=== PATIENT | female | born 1965 | race African-American/Black ===

== ENCOUNTER 2024-06-13 14:33 | Emergency (ER) | payer BC, MEDICARE, SELFPAY ==
--- NOTE | ~2024-06-13 | CT_ITS ---
EXAMINATION: CT chest abdomen pelvis w con DATE: 06/13/2024 20:38 INDICATION: wounds b/l axilla and inguinal, muscle exposed . TECHNIQUE: Computed tomography (CT) of the chest, abdomen, and pelvis was performed with 100 mL Omnip aque-350 intravenous contrast. Automated exposure control and iterative reconstruction technique were employed. The dose-length product was 615.12 mGy-cm. COMPARISON: None FINDINGS: CHEST: Thoracic aorta: No significant dilation. No dissection. Lung parenchyma and airways: Lungs and airways are clear. Thoracic inlet, axillae and chest wall: No thyroid mass. Prominent but not pathologically enlarged bi lateral axillary nodes. Axillary skin defects with dermal thickening and subcutaneous stranding bilat erally. Mediastinum: No mass or lymphadenopathy. Heart and pericardium: Normal heart size. No pericardial effusion. Coronary artery calcifications: . Pleura: No effusion or mass. Thoracic bones: No acute osseous finding in the chest. ABDOMEN/PELVIS: Liver: Normal. Biliary/Gallbladder: Gallbladder is normal. No bile duct dilation. Pancreas: No mass or duct dilation. Spleen: Normal. Adrenals:No mass. Kidneys: No suspicious mass, obstructing stone, or hydronephrosis. GI tract: Mild distal esophageal and gastric wall edema. No small or large bowel dilation. Normal danii endix. Mesentery/Peritoneum: No ascites, mass, or free air. Retroperitoneum: No mass Pelvis: Pelvic organs are within normal limits Soft Tissues: Midline skin defect over the inferior anterior abdominal wall with adjacent subcutaneou s stranding and a 3.9 x 0.4 cm rim enhancing fluid collection Small skin defect over the bilateral in guinal canals with subcutaneous gas and stranding. Small foci of subcutaneous gas overlying the media l right buttock and gluteal cleft. Dermal thickening and subcutaneous stranding along the left medial buttock and gluteal cleft. Bilateral inguinal lymphadenopathy. Abdominopelvic bones: No acute osseous finding in the abdomen/pelvis. Grade 1/2 anterolisthesis at L 4-5. Rudimentary disc at L5-S1. IMPRESSION: Mild esophagitis/gastritis. Multiple skin ulcerations or surgical/other lesions in the bilateral axilla, evaluation limited by th e necessity to scan with arm down positioning. Skin defect over the inferior midline abdominal wall with subcutaneous stranding and a 3.9 x 0.4 cm r im-enhancing subcutaneous fluid collection. This may represent resolving surgical change/seroma or ab scess. Multiple skin ulcerations or surgical/other lesions in the bilateral inguinal canals and along the bi lateral medial gluteal soft tissues. No drainable abscesses detected in these locations. Bilateral inguinal lymphadenopathy. Reviewed, dictated and finalized at location [facility] IMPRESSION: Mild esophagitis/gastritis. Multiple skin ulcerations or surgical/other lesions in the bilateral axilla, ev aluation limited by the necessity to scan with arm down positioning. Skin defect over the inferior midline abdominal wall with subcutaneous strandin g and a 3.9 x 0.4 cm rim-enhancing subcutaneous fluid collection. This may repr esent resolving surgical change/seroma or abscess. Multiple skin ulcerations or surgical/other lesions in the bilateral inguinal c anals and along the bilateral medial gluteal soft tissues. No drainable abscess es detected in these locations. Bilateral inguinal lymphadenopathy.
[2024-06-13 14:35] VITALS: BP 135/81; PULSE 112; RESP 20; TEMP 36.6; O2SAT 100
[2024-06-13 16:42] VITALS: BP 92/50; PULSE 81; RESP 18; TEMP 36.5; O2SAT 100
--- NOTE | 2024-06-13 17:43 | ED.GENADULT ---
HPI - General Adult General Chief complaint: Skin/Abscess/Foreign Body <Mark Miles PA-C - Last Filed: 06/13/24 17:44> Stated complaint: multiple boils <Mark Miles PA-C - Last Filed: 06/13/24 17:44> Time Seen by Provider: 06/13/24 17:43 <Mark Miles PA-C - Last Filed: 06/13/24 17:44> Focused HPI: This is a 58-year-old female who presents to the ED for chief complaint of a bilateral axilla and groin pain. She had surgical procedures for hidradenitis a pretty with surgeon in [place]. States that she has had pain ever since surgery and tramadol has really not controlled her pain. Reports that she is supposed to follow-up with retail customer service specialist in 10 days but the pain is too great. She has been using her wound dressings as instructed. Denies fevers, chills, nausea, vomiting. GENERAL: Well-appearing, well-nourished, and in no acute distress. HEAD: Normocephalic, atraumatic. CHEST: Clear to auscultation. No respiratory distress. HEART: Regular rate and rhythm. NEURO: Alert and oriented x3. Patient screened in triage and initial orders placed. Additional care and disposition to be based upon diagnostic testing and treatment. <Mark Miles PA-C - Last Filed: 06/13/24 17:44> Focused HPI: This is a 58-year-old female who presents to the ED for chief complaint of a bilateral axilla and groin pain. She had surgical procedures for hidradenitis with surgeon in [place]. States that she has had pain ever since surgery and tramadol has really not controlled her pain. Reports that she is supposed to follow-up with retail customer service specialist in 10 days but the pain is too great. She has been using her wound dressings as instructed. Denies fevers, chills, nausea, vomiting. GENERAL: Well-appearing, well-nourished, and in no acute distress. HEAD: Normocephalic, atraumatic. CHEST: Clear to auscultation. No respiratory distress. HEART: Regular rate and rhythm. NEURO: Alert and oriented x3. Patient screened in triage and initial orders placed. Additional care and disposition to be based upon diagnostic testing and treatment. <Crescencio Mariee MD - Last Filed: 06/14/24 23:16> History of Present Illness HPI narrative: Agree with the HPI as described above. <Crescencio Mariee MD - Last Filed: 06/14/24 23:16> Related Data Allergies/adverse reactions: Allergies Allergy/AdvReac Type Severity Reaction Status Date / Time No Known Allergies Allergy Mild Unverified 12/17/11 15:57 <Mark Miles PA-C - Last Filed: 06/13/24 17:44> Review of Systems Review of Systems: as reviewed above in HPI <Crescencio Mariee MD - Last Filed: 06/14/24 23:16> [facility] Family History Family History: Family History Grandparent Family history of malignant neoplasm of breast <Mark Miles PA-C - Last Filed: 06/13/24 17:44> Social History Social History: Social History Alcohol intake: current <Mark Miles PA-C - Last Filed: 06/13/24 17:44> Exam Narrative: GENERAL: Uncomfortable appearing, not any acute distress, awake alert answering questions appropriately. HEAD: [Normocephalic, atraumatic.] EYES: [PERRLA and EOMI.] ENT: Nares clear, no rhinorrhea or epistaxis. Mucous membranes moist. NECK: Supple. CHEST: [Clear to auscultation. No respiratory distress.] HEART: [Regular rate and rhythm]. No murmur heard. [Normal peripheral pulses.] ABDOMEN: [Soft, nondistended], [nontender], [No rigidity or guarding] EXTREMITIES: Normal range of motion. [No edema.] SKIN: There are extensive wounds throughout the bilateral axilla and bilateral inguinal canals and a suprapubic one. Appears to be from the previous incision and drainage but the area appears to not have healed whatsoever and there is exposed musculature and purulent drainage through both axillary regions and in the inguinal canal creases. There is a bleeding mucosal area in the suprapubic region that also has some mucopurulent discharge as well. these areas are exquisitely tender to palpation but no crepitus or fluctuance identified. No overlying cellulitic skin changes or redness. NEURO: [No focal deficits]. Alert and oriented [x3.] PSYCH: [Normal mood and affect.] <Crescencio Mariee MD - Last Filed: 06/14/24 23:16> Course Vital Signs Vital signs: Vital Signs Temperature 36.6 C 06/13/24 14:35 Pulse Rate 112 H 06/13/24 14:35 Respiratory Rate 20 06/13/24 14:35 Blood Pressure 135/81 06/13/24 14:35 Pulse Oximetry 100 06/13/24 14:35 Oxygen Delivery Room Air 06/13/24 14:35 Temperature 36.5 C 06/13/24 16:42 Pulse Rate 87 06/13/24 21:00 Respiratory Rate 18 06/13/24 21:00 Blood Pressure 133/72 06/13/24 21:00 Pulse Oximetry 98 06/13/24 21:00 Oxygen Delivery Room Air 06/13/24 14:35 <Mark Miles PA-C - Last Filed: 06/13/24 17:44> Vital Signs Temperature 36.6 C 06/13/24 14:35 Pulse Rate 112 H 06/13/24 14:35 Respiratory Rate 20 06/13/24 14:35 Blood Pressure 135/81 06/13/24 14:35 Pulse Oximetry 100 06/13/24 14:35 Oxygen Delivery Room Air 06/13/24 14:35 Temperature 36.5 C 06/13/24 16:42 Pulse Rate 87 06/13/24 21:00 Respiratory Rate 18 06/13/24 21:00 Blood Pressure 133/72 06/13/24 21:00 Pulse Oximetry 98 06/13/24 21:00 Oxygen Delivery Room Air 06/13/24 14:35 <Crescencio Mariee MD - Last Filed: 06/14/24 23:16> Vital Signs Temperature 36.6 C 06/13/24 14:35 Pulse Rate 112 H 06/13/24 14:35 Respiratory Rate 20 06/13/24 14:35 Blood Pressure 135/81 06/13/24 14:35 Pulse Oximetry 100 06/13/24 14:35 Oxygen Delivery Room Air 06/13/24 14:35 Temperature 36.5 C 06/13/24 16:42 Pulse Rate 87 06/13/24 21:00 Respiratory Rate 18 06/13/24 21:00 Blood Pressure 133/72 06/13/24 21:00 Pulse Oximetry 98 06/13/24 21:00 Oxygen Delivery Room Air 06/13/24 14:35 <Tanja Wright PA-C - Last Filed: 06/14/24 00:35> Medical Decision Making MDM Narrative Medical decision making narrative: 58-year-old female with history of hidradenitis who recently had multiple incision and drainage procedures done at [facility] in April of this year. She had a total 14 incisions according to herself and was supposed to follow-up with specialist but that appointment is not till the of this month. Patient has been having increased pain and now mucopurulent drainage out of her axillary and inguinal incision sites. Patient rates her pain 10/10 is very tearful. On examination the wounds are nonhealing, you can see the underlying exposed musculature through her axillary wounds without any overlying skin redness, warmth erythema or crepitus. The inguinal rules also have mucopurulent discharge and are in the creases bilaterally as well as 1 suprapubic wound. She has no history of inflammatory bowel or IBS but the suprapubic wound also potentially could be a fistulous tract. the areas are tender to palpation but no palpable abscess formation in this area. she is afebrile but slightly tachycardic with a pulse 112. No fever or boarded chills. Hemodynamically she has a blood pressure 135/81, saturating well on room air. Given the extensive wounds considerations are for nonhealing infected incision sites, less likely underlying abscess formation or deep space infections however given the exposed musculature in the axillary region I am concerned that we need to obtain advanced imaging such as a CT scan of the chest abdomen pelvis to assess for the areas of involvement. A septic workup was ordered this time and she was given a fluid bolus of 1L, CBC, CMP, lactic acid, inflammatory marker panel and empiric antibiotics were ordered. She was started on vancomycin and Zosyn. workup reveals a significant leukocytosis of 19.2, hemoglobin of 7.7 with no baseline are EMR. Normal platelets. LFTs and renal function panel within normal limits. Electrolytes within normal limits. C-reactive protein elevated 19.8. Lactic acid 1.4. Patient had repeat vital signs and re-evaluations frequently. Improvement in her pulse after fluid bolus. Repeat vitals are stable without any fever, no tachycardia or blood pressure concerns at this time. Patient CT scan was independently reviewed and also interpreted by radiology. She has the appreciable multiple skin ulcerations in defects from her surgical sites in bilateral axilla, bilateral inguinal creases and medial gluteal soft tissues without any drainable abscesses in these locations but a skin defect over the inferior midline abdominal wall consistent with her physical exam finding of a abscess there is a 3.9 cm rim enhancing subcutaneous fluid collection. I discussed the case with our general surgery team Dr. Narvaez and went over the imaging findings and physical exam. His recommendations were to trying contact patient's general surgeon from [facility] for recommendations as he felt she would be better served at her original surgical site rather than admission here. Called and discussed the case with patient's original general surgeon over at [facility] and he is well familiar with the patient and the case. Patient has a history of refractory hidradenitis despite multiple abdominal, inguinal and axillary surgeries, incisions, drainages, antibiotics an immunomodulator therapies. The general surgeon over at their facility states that he has no further interventions that he can offer the patient and try to set her up with [facility] for wound care and evaluation on outpatient basis. Recommendations from him were to transfer her to [facility] for higher level of care as he does not have the capabilities to handle her case at this time. [facility] transfer center was called and I spoke to the hotline informed them of patient's presentation and need for transfer for higher level of care and multidisciplinary management including General surgery, potential plastic surgery, immunology. awaiting call back with recommendations. Spoke to the general surgery team over at [facility] and they have reviewed patient's case, imaging results and ultimately denied the transfer to their facility as they do not have bed availability I do not feel she needs an escalation to Specialty surgical care at this time. at this time attempts will be made to transfer her to another facility that has potential ability and specialist care including Infectious Disease and maybe even Plastic surgery. [facility] was contacted I spoke to them over the phone and relayed the patient's case information to them. Patient was re-evaluated multiple times while here in the emergency department. She had improvement her vital signs with resolution of her tachycardia but was still in pain. She was provided additional analgesia was 0.5 mg of Dilaudid which did improve. Still awaiting call back from [facility] for potential transfer to their facility. At this time it is several hours past my shift still awaiting securing a transfer so patient was endorsed to the mid-level provider to carry on remaining conversations and attempt further transfer. I did relayed the difficulties transferring the patient to the hospitalist here at [facility] and if patient cannot be successfully transferred they will revisit potential admission here to the hospital in conjunction with our general surgeon. <Crescencio Mariee MD - Last Filed: 06/14/24 23:16> 58-year-old female with history of hidradenitis who recently had multiple incision and drainage procedures done at [facility] in April of this year. She had a total 14 incisions according to herself and was supposed to follow-up with specialist but that appointment is not till the of this month. Patient has been having increased pain and now mucopurulent drainage out of her axillary and inguinal incision sites. Patient rates her pain 10/10 is very tearful. On examination the wounds are nonhealing, you can see the underlying exposed musculature through her axillary wounds without any overlying skin redness, warmth erythema or crepitus. The inguinal rules also have mucopurulent discharge and are in the creases bilaterally as well as 1 suprapubic wound. She has no history of inflammatory bowel or IBS but the suprapubic wound also potentially could be a fistulous tract. the areas are tender to palpation but no palpable abscess formation in this area. she is afebrile but slightly tachycardic with a pulse 112. No fever or boarded chills. Hemodynamically she has a blood pressure 135/81, saturating well on room air. Given the extensive wounds considerations are for nonhealing infected incision sites, less likely underlying abscess formation or deep space infections however given the exposed musculature in the axillary region I am concerned that we need to obtain advanced imaging such as a CT scan of the chest abdomen pelvis to assess for the areas of involvement. A septic workup was ordered this time and she was given a fluid bolus of 1L, CBC, CMP, lactic acid, inflammatory marker panel and empiric antibiotics were ordered. She was started on vancomycin and Zosyn. workup reveals a significant leukocytosis of 19.2, hemoglobin of 7.7 with no baseline are EMR. Normal platelets. LFTs and renal function panel within normal limits. Electrolytes within normal limits. C-reactive protein elevated 19.8. Lactic acid 1.4. Patient had repeat vital signs and re-evaluations frequently. Improvement in her pulse after fluid bolus. Repeat vitals are stable without any fever, no tachycardia or blood pressure concerns at this time. Patient CT scan was independently reviewed and also interpreted by radiology. She has the appreciable multiple skin ulcerations in defects from her surgical sites in bilateral axilla, bilateral inguinal creases and medial gluteal soft tissues without any drainable abscesses in these locations but a skin defect over the inferior midline abdominal wall consistent with her physical exam finding of a abscess there is a 3.9 cm rim enhancing subcutaneous fluid collection. I discussed the case with our general surgery team Dr. Narvaez and went over the imaging findings and physical exam. His recommendations were to trying contact patient's general surgeon from [facility] for recommendations as he felt she would be better served at her original surgical site rather than admission here. Called and discussed the case with patient's original general surgeon over at [facility] and he is well familiar with the patient and the case. Patient has a history of refractory hidradenitis despite multiple abdominal, inguinal and axillary surgeries, incisions, drainages, antibiotics an immunomodulator therapies. The general surgeon over at their facility states that he has no further interventions that he can offer the patient and try to set her up with [facility] for wound care and evaluation on outpatient basis. Recommendations from him were to transfer her to [facility] for higher level of care as he does not have the capabilities to handle her case at this time. [facility] transfer center was called and I spoke to the hotline informed them of patient's presentation and need for transfer for higher level of care and multidisciplinary management including General surgery, potential plastic surgery, immunology. awaiting call back with recommendations. Spoke to the general surgery team over at [facility] and they have reviewed patient's case, imaging results and ultimately denied the transfer to their facility as they do not have bed availability I do not feel she needs an escalation to Specialty surgical care at this time. at this time attempts will be made to transfer her to another facility that has potential ability and specialist care including Infectious Disease and maybe even Plastic surgery. [facility] was contacted I spoke to them over the phone and relayed the patient's case information to them. Patient was re-evaluated multiple times while here in the emergency department. She had improvement her vital signs with resolution of her tachycardia but was still in pain. She was provided additional analgesia was 0.5 mg of Dilaudid which did improve. Still awaiting call back from [facility] for potential transfer to their facility. At this time it is several hours past my shift still awaiting securing a transfer so patient was endorsed to the mid-level provider to carry on remaining conversations and attempt further transfer. I did relayed the difficulties transferring the patient to the hospitalist here at [facility] and if patient cannot be successfully transferred they will revisit potential admission here to the hospital in conjunction with our general surgeon. 0020 06/14 - RG - Care was signed out to myself at previous provider's shift change pending transfer to tertiary care center for further evaluation and management of abdominal wall abscess, sepsis, HS. Patient was accepted to [facility] by Dr. Mirza. Patient updated on plan and transfer. Resting comfortably. Did not want anything further for pain at this time. ALS transport notified. <Tanja Wright PA-C - Last Filed: 06/14/24 00:35> Medical Records Medical records reviewed: Yes I reviewed the external patient's medical records. <Tanja Wright PA-C - Last Filed: 06/14/24 00:35> Vital Signs Vital Signs: Vital Signs Temperature 36.6 C 06/13/24 14:35 Pulse Rate 112 H 06/13/24 14:35 Respiratory Rate 20 06/13/24 14:35 Blood Pressure 135/81 06/13/24 14:35 Pulse Oximetry 100 06/13/24 14:35 Oxygen Delivery Room Air 06/13/24 14:35 Temperature 36.5 C 06/13/24 16:42 Pulse Rate 87 06/13/24 21:00 Respiratory Rate 18 06/13/24 21:00 Blood Pressure 133/72 06/13/24 21:00 Pulse Oximetry 98 06/13/24 21:00 Oxygen Delivery Room Air 06/13/24 14:35 <Mark Miles PA-C - Last Filed: 06/13/24 17:44> Vital Signs Temperature 36.6 C 06/13/24 14:35 Pulse Rate 112 H 06/13/24 14:35 Respiratory Rate 20 06/13/24 14:35 Blood Pressure 135/81 06/13/24 14:35 Pulse Oximetry 100 06/13/24 14:35 Oxygen Delivery Room Air 06/13/24 14:35 Temperature 36.5 C 06/13/24 16:42 Pulse Rate 87 06/13/24 21:00 Respiratory Rate 18 06/13/24 21:00 Blood Pressure 133/72 06/13/24 21:00 Pulse Oximetry 98 06/13/24 21:00 Oxygen Delivery Room Air 06/13/24 14:35 <Crescencio Mariee MD - Last Filed: 06/14/24 23:16> Vital Signs Temperature 36.6 C 06/13/24 14:35 Pulse Rate 112 H 06/13/24 14:35 Respiratory Rate 20 06/13/24 14:35 Blood Pressure 135/81 06/13/24 14:35 Pulse Oximetry 100 06/13/24 14:35 Oxygen Delivery Room Air 06/13/24 14:35 Temperature 36.5 C 06/13/24 16:42 Pulse Rate 87 06/13/24 21:00 Respiratory Rate 18 06/13/24 21:00 Blood Pressure 133/72 06/13/24 21:00 Pulse Oximetry 98 06/13/24 21:00 Oxygen Delivery Room Air 06/13/24 14:35 <Tanja Wright PA-C - Last Filed: 06/14/24 00:35> Lab Data Lab results reviewed: Yes I reviewed the patient's lab results. <Tanja Wright PA-C - Last Filed: 06/14/24 00:35> Result diagrams: 06/13/24 18:52 06/13/24 18:52 <VAIBHAV Mason Last Filed: 06/13/24 17:44> Labs: Lab Results 06/13/24 Range/Units 18:52 WBC 19.2 H (4.5-10.0) K/mm3 RBC 2.66 L (4.2-5.4) M/mm3 Hgb 7.7 L (12.0-15.0) g/dL Hct 24.3 L (37.0-47.0) % MCV 91.4 (80-100) fl MCH 28.9 (26-34) pg MCHC 31.7 L (32-36) g/dl RDW 14.6 H (11.5-14.5) % Plt Count 329 (150-375) k/mm3 MPV 9.8 (7.4-10.4) fl Immature Gran % (Auto) 0.7 H (0-0.5) % Neut % (Auto) 84.2 H (45.5-73.1) % Lymph % (Auto) 8.8 L (18.3-44.2) % [place] % (Auto) 5.9 (2.6-8.5) % Eos % (Auto) 0.0 (0-4.4) % Baso % (Auto) 0.4 (0.2-1.2) % Lymph # (Auto) 1.68 (0.9-3.2) K/mm3 [place] # (Auto) 1.1 H (0.1-0.6) K/mm3 Eos # (Auto) 0.0 (0-0.3) K/mm3 Baso # (Auto) 0.1 (0.0-0.1) K/mm3 Abs Immat Gran (auto) 0.13 H (0.00-0.031) K/mm3 Absolute Neuts (auto) 16.2 H (1.3-6.7) K/mm3 Absolute Nucleated RBC 0.000 (0.0-0.012) K/mm3 Nucleated RBC % 0.0 (0.0-0.2) % Sodium 134 L (137-145) mmol/L Potassium 3.6 (3.4-5.0) mmol/L Chloride 101 (98-107) mmol/L Carbon Dioxide 24 (22-30) mmol/L Anion Gap 9 (4-12) mmol/L BUN 12 (7-17) mg/dL Creatinine 1.10 H (0.7-1.0) mg/dL Estim Creat Clear Calc 51 ml/min Estimated GFR > 60 (59 - ) Glucose 121 H (65-110) mg/dL Lactic Acid 1.4 (0.7-2.0) mmol/L Calcium 8.5 (8.4-10.2) mg/dL Total Bilirubin 0.7 (0.2-1.3) mg/dL AST 38 H (14-36) U/L ALT 12 (6-35) U/L Alkaline Phosphatase 148 H (38-126) U/L C-Reactive Protein 19.8 H (<1.0) mg/dL Total Protein 9.0 H (6.3-8.2) g/dL Albumin 3.0 L (3.5-5.1) g/dL Procalcitonin 0.3 ng/mL <Mark Miles PA-C - Last Filed: 06/13/24 17:44> Lab Results 06/13/24 Range/Units 18:52 WBC 19.2 H (4.5-10.0) K/mm3 RBC 2.66 L (4.2-5.4) M/mm3 Hgb 7.7 L (12.0-15.0) g/dL Hct 24.3 L (37.0-47.0) % MCV 91.4 (80-100) fl MCH 28.9 (26-34) pg MCHC 31.7 L (32-36) g/dl RDW 14.6 H (11.5-14.5) % Plt Count 329 (150-375) k/mm3 MPV 9.8 (7.4-10.4) fl Immature Gran % (Auto) 0.7 H (0-0.5) % Neut % (Auto) 84.2 H (45.5-73.1) % Lymph % (Auto) 8.8 L (18.3-44.2) % [place] % (Auto) 5.9 (2.6-8.5) % Eos % (Auto) 0.0 (0-4.4) % Baso % (Auto) 0.4 (0.2-1.2) % Lymph # (Auto) 1.68 (0.9-3.2) K/mm3 [place] # (Auto) 1.1 H (0.1-0.6) K/mm3 Eos # (Auto) 0.0 (0-0.3) K/mm3 Baso # (Auto) 0.1 (0.0-0.1) K/mm3 Abs Immat Gran (auto) 0.13 H (0.00-0.031) K/mm3 Absolute Neuts (auto) 16.2 H (1.3-6.7) K/mm3 Absolute Nucleated RBC 0.000 (0.0-0.012) K/mm3 Nucleated RBC % 0.0 (0.0-0.2) % Sodium 134 L (137-145) mmol/L Potassium 3.6 (3.4-5.0) mmol/L Chloride 101 (98-107) mmol/L Carbon Dioxide 24 (22-30) mmol/L Anion Gap 9 (4-12) mmol/L BUN 12 (7-17) mg/dL Creatinine 1.10 H (0.7-1.0) mg/dL Estim Creat Clear Calc 51 ml/min Estimated GFR > 60 (59 - ) Glucose 121 H (65-110) mg/dL Lactic Acid 1.4 (0.7-2.0) mmol/L Calcium 8.5 (8.4-10.2) mg/dL Total Bilirubin 0.7 (0.2-1.3) mg/dL AST 38 H (14-36) U/L ALT 12 (6-35) U/L Alkaline Phosphatase 148 H (38-126) U/L C-Reactive Protein 19.8 H (<1.0) mg/dL Total Protein 9.0 H (6.3-8.2) g/dL Albumin 3.0 L (3.5-5.1) g/dL Procalcitonin 0.3 ng/mL <Crescencio Mariee MD - Last Filed: 06/14/24 23:16> Lab Results 06/13/24 Range/Units 18:52 WBC 19.2 H (4.5-10.0) K/mm3 RBC 2.66 L (4.2-5.4) M/mm3 Hgb 7.7 L (12.0-15.0) g/dL Hct 24.3 L (37.0-47.0) % MCV 91.4 (80-100) fl MCH 28.9 (26-34) pg MCHC 31.7 L (32-36) g/dl RDW 14.6 H (11.5-14.5) % Plt Count 329 (150-375) k/mm3 MPV 9.8 (7.4-10.4) fl Immature Gran % (Auto) 0.7 H (0-0.5) % Neut % (Auto) 84.2 H (45.5-73.1) % Lymph % (Auto) 8.8 L (18.3-44.2) % [place] % (Auto) 5.9 (2.6-8.5) % Eos % (Auto) 0.0 (0-4.4) % Baso % (Auto) 0.4 (0.2-1.2) % Lymph # (Auto) 1.68 (0.9-3.2) K/mm3 [place] # (Auto) 1.1 H (0.1-0.6) K/mm3 Eos # (Auto) 0.0 (0-0.3) K/mm3 Baso # (Auto) 0.1 (0.0-0.1) K/mm3 Abs Immat Gran (auto) 0.13 H (0.00-0.031) K/mm3 Absolute Neuts (auto) 16.2 H (1.3-6.7) K/mm3 Absolute Nucleated RBC 0.000 (0.0-0.012) K/mm3 Nucleated RBC % 0.0 (0.0-0.2) % Sodium 134 L (137-145) mmol/L Potassium 3.6 (3.4-5.0) mmol/L Chloride 101 (98-107) mmol/L Carbon Dioxide 24 (22-30) mmol/L Anion Gap 9 (4-12) mmol/L BUN 12 (7-17) mg/dL Creatinine 1.10 H (0.7-1.0) mg/dL Estim Creat Clear Calc 51 ml/min Estimated GFR > 60 (59 - ) Glucose 121 H (65-110) mg/dL Lactic Acid 1.4 (0.7-2.0) mmol/L Calcium 8.5 (8.4-10.2) mg/dL Total Bilirubin 0.7 (0.2-1.3) mg/dL AST 38 H (14-36) U/L ALT 12 (6-35) U/L Alkaline Phosphatase 148 H (38-126) U/L C-Reactive Protein 19.8 H (<1.0) mg/dL Total Protein 9.0 H (6.3-8.2) g/dL Albumin 3.0 L (3.5-5.1) g/dL Procalcitonin 0.3 ng/mL <Tanja Wright PA-C - Last Filed: 06/14/24 00:35> Imaging Data Attestation: I personally reviewed and interpreted this imaging study as follows: <Tanja Wright PA-C - Last Filed: 06/14/24 00:35> Radiologist's impression: ITS Impressions Chest/Abdomen/Pelvis CT 06/13/24 20:52 IMPRESSION: Mild esophagitis/gastritis. Multiple skin ulcerations or surgical/other lesions in the bilateral axilla, evaluation limited by the necessity to scan with arm down positioning. Skin defect over the inferior midline abdominal wall with subcutaneous stranding and a 3.9 x 0.4 cm rim-enhancing subcutaneous fluid collection. This may represent resolving surgical change/seroma or abscess. Multiple skin ulcerations or surgical/other lesions in the bilateral inguinal canals and along the bilateral medial gluteal soft tissues. No drainable abscesses detected in these locations. Bilateral inguinal lymphadenopathy. <Tanja Wright PA-C - Last Filed: 06/14/24 00:35> Critical Care Time Critical Care Time Critical Care Time: Yes <Crescencio Mariee MD - Last Filed: 06/14/24 23:16> Total Critical Care Time: 60 <Crescencio Mariee MD - Last Filed: 06/14/24 23:16> Discharge Plan Discharge Clinical Impression: Hidradenitis suppurativa of multiple sites, Abscess of skin or subcutaneous tissue, Axillary hidradenitis suppurativa, Sepsis <Mark Miles PA-C - Last Filed: 06/13/24 17:44> Patient Disposition: Acute Care Hospital <VAIBHAV Mason Last Filed: 06/13/24 17:44> Condition: Guarded Prognosis <VAIBHAV Mason Last Filed: 06/13/24 17:44> Patient Language: Kinyarwanda <Mark Miles PA-C - Last Filed: 06/13/24 17:44> Follow-up/Referrals: Matthew,DANIAL Giron [Primary Care Provider] - <Mark Miles PA-C - Last Filed: 06/13/24 17:44>
[2024-06-13 18:57] LABS: Basophils Absolute Auto 0.1 K/mm3 (0.0-0.1); Basophils Percent Auto 0.4 % (0.2-1.2); Hematocrit 24.3 % (37.0-47.0); Hemoglobin 7.7 g/dL (12.0-15.0); Immature Granulocyte Absolute 0.13 K/mm3 (0.00-0.031); Immature Granulocyte Percent A 0.7 % (0-0.5); Lymphocytes Absolute Auto 1.68 K/mm3 (0.9-3.2); Lymphocytes Percent Auto 8.8 % (18.3-44.2); Mean Corpuscular HGB Conc 31.7 g/dl (32-36); Mean Corpuscular Hemoglobin 28.9 pg (26-34); Mean Corpuscular Volume 91.4 fl (80-100); Mean Platelet Volume 9.8 fl (7.4-10.4); Monocytes Absolute Auto 1.1 K/mm3 (0.1-0.6); Monocytes Percent Auto 5.9 % (2.6-8.5); Neutrophils Absolute Auto 16.2 K/mm3 (1.3-6.7); Neutrophils Percent Auto 84.2 % (45.5-73.1); Platelet Count Result 329 k/mm3 (150-375); Red Blood Count 2.66 M/mm3 (4.2-5.4); Red Cell Distribution Width 14.6 % (11.5-14.5); White Blood Count 19.2 K/mm3 (4.5-10.0)
[2024-06-13 19:06] LABS: Lactic Acid Reflex 1.4 mmol/L (0.7-2.0)
[2024-06-13 19:24] LABS: Alanine Aminotransferase 12 U/L (6-35); Alkaline Phosphatase 148 U/L (38-126); Anion Gap 9 mmol/L (4-12); Aspartate Amino Transferase 38 U/L (14-36); Bilirubin,Total 0.7 mg/dL (0.2-1.3); Blood Urea Nitrogen 12 mg/dL (7-17); CRP 19.8 mg/dL (<1.0); Calcium 8.5 mg/dL (8.4-10.2); Carbon Dioxide 24 mmol/L (22-30); Chloride 101 mmol/L (98-107); Estimated CRCL calculation 51 ml/min; Estimated Glomerular Filt Rate > 60; Glucose 121 mg/dL (65-110); Potassium 3.6 mmol/L (3.4-5.0); Sodium 134 mmol/L (137-145)
[2024-06-13 19:29] LABS: Procalcitonin 0.3 ng/mL
[2024-06-13] MEDS: LACTATED RINGERS 1,000 ML 999 ML IV CONT (20:27)
[2024-06-13] MEDS: HYDROmorphone HCL INJ (*CRX) 1 MG/ML SYR 0.5 MG IV PUSH ×2 (20:27→23:17)
[2024-06-13] MEDS: PIPERACILLIN/TAZ 4.5G/NS 100ML 4.5 GM/100 ML BAG IVPB (20:53)
[2024-06-13 21:00] VITALS: BP 133/72; PULSE 87; RESP 18; O2SAT 98
[2024-06-13] MEDS: VANCOMYCIN 2,000 MG/NS 500 ML 2,000 MG/500 ML BAG 250 MG IVPB (21:13)
[2024-06-14] MEDS: HYDROmorphone HCL INJ (*CRX) 1 MG/ML SYR IV PUSH (02:12)
[2024-06-14] MEDS: HYDROmorphone HCL INJ (*CRX) 1 MG/ML SYR (02:19)
== END 2024-06-14 02:22 | disposition short-term general hospital (02) ==
PROVIDERS: Physician Assistant; Emergency Provider Student in an Organized Health Care Education/Training Program; PCP Physician Assistant
DX: T81.44XA Sepsis following a procedure, initial encounter (principal); L73.2 Hidradenitis suppurativa; K20.90 Esophagitis, unspecified without bleeding; K29.70 Gastritis, unspecified, without bleeding; Y83.8 Other surgical procedures as the cause of abnormal reaction of the patient, or of later complication, without mention of misadventure at the time of the procedure
CPT/HCPCS: 36415; 71260; 74177; 80053; 83605; 84145; 85025; 86140; 87040; 87181; 96365; 96366; 96367; 96375; 96376; 99285; J1171; J2543; J3370; J7120; Q9967

== ENCOUNTER 2024-09-23 14:22 | Outpatient (CLI) | payer BC, MEDICARE, SELFPAY ==
--- NOTE | ~2024-09-23 | US_ITS ---
EXAMINATION: US venous doppler [facility] DATE: 09/23/2024 15:21 INDICATION: Left lower extremity swelling TECHNIQUE: Grayscale ultrasound images without and with compression and Doppler ultrasound images of the left lower extremity veins were obtained. COMPARISON: None. Reference is made to a CT examination of the chest abdomen and pelvis performed 06/13/2024 which demonstrated a large filling defect within the left groin, within the common femoral vei n. FINDINGS: Eccentric filling defect within the left common femoral vein, similar in appearance to CT examination performed in June 2024. Noncompressibility and absence of flow is identified within both the left common femoral, left femora l and left popliteal veins. Superficial system is patent demonstrating patency within the greater saphenous vein inflow. Flow and compressibility is identified within the peroneal and posterior tibial veins. Incidental not ation is made of multiple lymph nodes within the left groin likely related to patient's bilateral ing uinal canal soft tissue induration seen on previous CT examination. 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 Reviewed, dictated and finalized at location A. IMPRESSION: Redemonstration of thrombus within the left common femoral, left femoral and le ft popliteal veins, as detailed above.
--- OUTSIDE RECORDS SUMMARY | 2024-09-23 14:42 | XMS_ITS | CONTINUITY OF CARE DOCUMENT ---
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 Name Role Phone Sarah Walls MD Unavailable [phone] ONEIL LEON Unavailable ONEIL LEON Unavailable PROBLEMS Condition Status Date Provider Notes Essential Hypertension active Sarah Walls MD Rheumatoid arthritis active Sarah Walls MD Tobacco abuse active Sarah Walls MD Chest pain nl stress nuc mayte t and echo 12/29/20 active Sarah Walls MD ENCOUNTERS Date Type Provider Location Encounter Diag nosis - In-person encounter Office Visit Sarah Walls MD [facility] Chest pain nl stress nuc test and echo 12/29/20 - In-person encounter Office Visit Sarah Walls MD [facility] - In-person encounter Office Visit Sarah Walls MD [facility] - In-person encounter Office Visit Sarah Walls MD [facility] Chest pain nl stress nuc test and echo 12/29/20Essential Hypertension - In-person encounter Office Visit Sarah Walls MD [facility] Chest pain nl stress nuc test and echo 12/29/20Tobacco abuseRheumatoid arthritis VITAL SIGNS Date Observation Value Provider Body Mass Index (Ratio) 36.49 kg/m2 Syd Walls MD blood pressure, cuff size large Ke rri Robnenfelder blood pressure, diastolic 80 mm[Hg] Ke rri Leoniduenelenaeldnoemi blood pressure, systolic 120 mm[Hg] Eddi ri Sofiyaelder oxygen saturation, oximetry 98 % Ethel Sofiyaelder respiratory rate E&M 16 /min Ethel G ruenenfelder pulse rate 59 /min Ethel Sofiyae lder weight E&M 206 [lb_av] Ethel Robnenfe lder height E&M 63 [in_i] Ethel Sofiyae er Body Mass Index (Ratio) 37.02 kg/m2 Syd Walls MD blood pressure, cuff size large Megan lance Ryan blood pressure, diastolic 80 mm[Hg] Megan lance Davis blood pressure, systolic 130 mm[Hg] Taylor lewis Ryan oxygen saturation, oximetry 98 % Tishakenney Davis respiratory rate E&M 16 /min Tisha Ryan pulse rate 75 /min Tishakenney Davis weight E&M 209 [lb_av] Tisha Ryan height E&M 63 [in_i] Tisha Davis Body Mass Index (Ratio) 36.84 kg/m2 Karla lorenza Gracia weight E&M 208 [lb_av] Inna Gracia respiratory rate E&M 14 /min Inna Gracia blood pressure, diastolic 98 mm[Hg] Me dorothy Gracia blood pressure, systolic 143 mm[Hg] Jackie sabrina Gracia pulse rate 88 /min Inna Gracia oxygen saturation, oximetry 99 % Inna Gracia blood pressure, diastolic 98 mm[Hg] Me dorothy Gracia blood pressure, systolic 143 mm[Hg] Jackie Gracia blood pressure, diastolic 85 mm[Hg] Danny Matthews blood pressure, systolic 138 mm[Hg] Clarisse Matthews pulse rate 92 /min Alberto ledezma oxygen saturation, oximetry 97 % Alberto Matthews respiratory rate E&M 16 /min Radha Matthews Body Mass Index (Ratio) 36.95 kg/m2 Rosey Matthews weight E&M 208.6 [lb_av] Alberto gauthier height E&M 63 [in_i] Alberto ledezma ALLERGIES No Known Drug Allergies HISTORY OF MEDICATION USE Medication Status Instructions Dates Provider Indications Com ments LISINOPRIL 5 MG ORAL TABLET completed ONE TAB. DAILY - Ethel Connolly HYDROCORTISONE TABS completed as directed - Ethel Connolly HUMIRA 40 MG/0.8ML SUBCUTANEOUS PREFILLED SYRINGE KIT active once a week Ethel Connolly PREDNISONE completed as directed - Ethel Connolly SOCIAL HISTORY Date Observation Value Provider smoking/tobacco cess ation, patient education and counseling yes Sarah Walls MD social history reviewed E&M revi ewed - no changes required Sarah Walls MD smoking/tobacco cess ation, patient education and counseling yes Trev Rogers smoking status Current every day smoker O avelina Rogers social history reviewed E&M revi ewed - no changes required Trev Rogers social history E&M S moking History: P ashlee currently smokes every day. P ashlee has been counseled to quit. Saarh Walls MD number of years as a smoker 20 a Trev Rogers smoking history, tot al pack/day 4-5 cigs Trev Rogers cigarette use yes Ethel hunter social history reviewed E&M revi ewed - no changes required Sarah Walls MD smoking/tobacco cess ation, patient education and counseling yes Tisha Davis number of years as a smoker 20 a Tisha Davis smoking history, tot al pack/day 4-5 cigs Tisha Davis cigarette use yes Tisha Davis smoking status Current every day smoker L abiola Davis social history reviewed E&M i ewed - no changes required Sarah Walls MD smoking/tobacco cess ation, patient education and counseling yes Inna Gracia number of years as a smoker 20 a Inna Gracia smoking history, tot al pack/day 4-5 cigs Inna Gracia cigarette use yes Inna Gracia smoking status Current every day smoker Nidia Gracia smoking status Current every day smoker iNdia Gracia number of years as a smoker 20 a Alberto Matthews smoking history, tot al pack/day 4-5 cigs Alberto Matthews cigarette use yes Alberto gauthier smoking status Current every day smoker Nidia Matthews FUNCTIONAL STATUS Date Observation Value Provider periodic limb movement index absent (0) Sarah Walls MD FAMILY HISTORY Family Member Condition First Degree Blood Relative No Known Fam derrick History INSURANCE PROVIDERS Payer name Policy type / Coverage type [employer] red green party ID BLUE [facility] [id number] MED[place]ARE SECOND[place] [id number] ADVANCE DIRECTIVES Name Date DISCUSSED - NO DECISION MADE TREATMENT PLAN Date Name Performer [id number],Sarah Chavarria MD [id number],Sarah Chavarria MD [phone] Toniya Singh MD [id number],S, Sarah Walls MD TeleHealth Sarah Walls MD TeleHealth Sarah Walls MD TeleHealth Sarah Walls MD TeleHealth Sarah Walls MD [facility]iology [facility] up :e ncouraged to stop smoking [facility] up Sarah sorensen MD Cardiology Sarah Walls MD Cardiology Sarah Walls MD Cardiology Sarah Walls MD Cardiology Sarah Walls MD Cardiology Sarah Walls MD Cardiology Sarah Walls MD Date Name Stress Exercise Card iolite Complete Echo HISTORY OF PROCEDURES Procedure Date Procedure Name Provider Procedure Notes S tatus EKG Sarah Walls MD completed SNOMED-CT: 32527412 Physical Exam, Performed: Pulse Exam of Foot Sarah Walls MD completed EKG Sarah Walls MD completed SNOMED-CT: 905181088 [id number] Current Medications Documented Sarah Walls MD completed SNOMED-CT: 180853919 Smoking Cessation Counseling Sarah Walls MD completed SNOMED-CT: 14596347 Physical Exam, Performed: Pulse Exam of Foot Sarah Walls MD completed SNOMED-CT: 027058278 386237 Current Medications Documented Sarah Walls MD completed SNOMED-CT: 34547207 Physical Exam, Performed: Pulse Exam of Foot Sarah Walls MD completed EKG Sarah Walls MD completed SNOMED-CT: 113579359 964467 Current Medications Documented Sarah Walls MD completed
--- OUTSIDE RECORDS SUMMARY | 2024-09-23 14:42 | XMS_ITS | Encounter Summary ---
Author Organization [facility] Address [address] [place] [address] Care Team Providers Care Paper Products Printer Name Role Phone Unavailable Primary Care Provider Unavailabl e Encounter Details Date Type Department Care Team (Late st Contact Info) Description 09/21/2024 External Device Data [facility] ABSTRACTION Provider, Abstract NO ADDRESS ON FILE Social History Tobacco Use Types Packs/Day Years Used Date Smoking Tobacco: Former Cigarettes Passive Smoke Exposure: Past Smokeless Tobacco: Never Alcohol Use Standard Drinks/Week Comments Yes 7 (1 standard drink = 0.6 oz pur e alcohol) Feeling Safe Answer Date Recorded Are you in a relationship wi th someone who hurts you emotionally and/or physically? 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
--- OUTSIDE RECORDS SUMMARY | 2024-09-23 14:42 | XMS_ITS | Clinical Summary ---
Author Organization [facility] Address [address] [place] [address] Phone Care Team Providers Care Supervisor [employer] Name Role Phone Unavailable Primary Care Provider Unavailabl e Allergies No known active allergies Medications acetaminophen (TYLENOL) 325 mg tablet Take 2 Tablets (650 mg) by mouth every 4 hours as needed for Pain or Other (See Comment) (Fever). Alternate with PO percocet 4 Active oxyCODONE-acetam inophen (PERCOCET) 5-325 mg tabletIndication s:Hidradenitis suppurativa of multiple sites Take 1 Tablet by mouth every 6 hours as needed for moderate or severe pain. Max Daily Amount: 4 Tablets 15 Tablet 06/20/2024 4:36 PM MOLD MECHANIC 4 Active pantoprazole (PROTONIX) 40 mg Tablet, Delayed Release (E.C.) Take 1 Tablet (40 mg) by mouth 2 times daily before meals. 30 Tablet 06/20/2024 4:36 PM MOLD MECHANIC 4 Active Active Problems Problem Noted Date Diagnosed Date Normocytic anemia 06/19/2024 Protein-calorie malnutrition, moderate 4 Immunosuppressed status 06/15/2024 Acute on chronic blood loss anemia 06/15/2024 Hypokalemia 06/15/2024 Sepsis without acute organ dysfunction 4 Hidradenitis suppurativa of multiple sites 06/14 Encounters Date Type Department Care Team Description 09/21/2024 External Device Data ST[facility] ABSTRACTION Provider, Abstract 09/14/2024 External Device Data [facility] ABSTRACTION Provider, Abstract 09/13/2024 External Device Data [facility] ABSTRACTION Provider, Abstract 09/12/2024 External Device Data [facility] ABSTRACTION Provider, Abstract 09/10/2024 External Device Data [facility] ABSTRACTION Provider, Abstract 09/10/2024 External Device Data [facility] ABSTRACTION Provider, Abstract 09/07/2024 External Device Data [facility] ABSTRACTION Provider, Abstract 09/06/2024 External Device Data [facility] ABSTRACTION Provider, Abstract 08/24/2024 External Device Data [facility] ABSTRACTION Provider, Abstract 08/23/2024 External Device Data [facility] ABSTRACTION Provider, Abstract 08/03/2024 External Device Data [facility] ABSTRACTION Provider, Abstract 07/28/2024 External Device Data [facility] ABSTRACTION Provider, Abstract 07/19/2024 External Device Data [facility] ABSTRACTION Provider, Abstract from Last 3 Months Social History Tobacco Use Types Packs/Day Years Used Date Smoking Tobacco: Former Cigarettes Passive Smoke Exposure: Past Smokeless Tobacco: Never Tobacco Cessation:Counseling Given: Not Answered Alcohol Use Standard Drinks/Week Comments Yes 7 [...] on file 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 Gender Identity Not on file Sexual Orientation Not on file Last Filed Vital Signs Vital Sign Reading Time Taken Comments Blood Pressure 132/74 06/20/2024 8:29 AM MOLD MECHANIC Pulse 63 06/20/2024 8:29 AM MOLD MECHANIC Temperature 37.1 C (98.8 F) 06/20/2024 8:29 AM MOLD MECHANIC Respiratory Rate 18 06/19/2024 3:53 PM MOLD MECHANIC Oxygen Saturation 100% 06/20/2024 8:29 AM MOLD MECHANIC Inhaled Oxygen Concentration - - Weight 70.3 kg (155 lb) 06/15/2024 5:00 AM MOLD MECHANIC Height 160 cm (5' 3 ) 06/14/2024 3:50 AM MOLD MECHANIC Body Mass Index 27.46 06/14/2024 3:50 AM MOLD MECHANIC Plan of Treatment Health Maintenance Due Date Last Done Comments Pre-Diabetes and Diabetes Screening 1966 DTAP/TDAP/TD VACCINES (1 - Tdap) 1985 HEPATITIS B VACCINES (1 of 3 - 19+ 3-dose series) 07/07 ZOSTER VACCINE (1 of 2) 1985 PAP SMEAR 1987 CERVICAL CANCER SCREENING 1996 HPV/Cotest 1996 PAP SMEAR 1996 BREAST CANCER SCREENING 2006 COLORECTAL SCREENING 2011 Colorectal Cancer Screening 2011 FIT-DNA Q 3 years 2011 FIT/FOBT Q 1 year 2011 Flex Sig/CT Colonography Q 5 years 2011 INFLUENZA VACCINE (#1) 2024 Insurance MEDICARE PART A AND B [employer] (acquired by [employer] in 2014) PPO RX [employer] Commercial Advance Directives For more information, please contact: [phone] * Full Code (Latest Code Status on File) Date Activated Date Inactivated Comments 06/14/2024 4:28 AM 06/20/2024 7:45 PM
--- OUTSIDE RECORDS SUMMARY | 2024-09-23 14:42 | XMS_ITS | Continuity of Care Document ---
Author Organization [facility] JENNIFERSami Ward (Adult Med) Address [address] [place] [address] Assessment No assessment recorded. Plan of Treatment Reminders Order Date Submit Date Provider Last Modified By Organization Details Last Modified Time Details Appointments ANY 2024 09:00A Nidia Valdivia MD Not available Not available Not available ANY 2024 01:30P Nidia Valdivia MD Not available Not available Not available Lab None recorded. Referral None recorded. Procedures None recorded. Surgeries None recorded. Imaging US, doppler, venous - has been bedridden for many months, acute swelling of left lower extremity 2024 025 [facility] (Imaging), [address] [place] [address] [facility] [facility], [place], [address], 09/23/2024 10:40:43 Medication Orders None recorded. Patient TargetsNo targets recorded. Patient InstructionsNo instructions recorded. Reason for Referral None Reported. Problems Name Problem SNOMED Code Status Onset Date Resolution Date Notes Provider Name and Address Organization Details Recorded Time Thoracic back pain 344768325 Active 2017 Colten Castro PA-C Attn: Staci waldron,[address] [facility], [place], [address], [facility] - [facility] 8 16:32:13 Left flank pain 877962863 Active 2017 Colten Castro PA-C Attn: Staci waldron,[address] [facility], [place], [address], [facility] - [facility] 8 17:33:11 Abscess of left axilla 34240269900 391493 Active 2018 Colten Castro PA-C Attn: Accountin g,[address] [facility], [place], [address], [place] - [facility] 9 15:16:02 Low back pain 264323836 Active 2018 Colten Castro PA-C Attn: Accountin g,[address] [facility], [place], [address], [place] [facility] 9 15:18:41 Obese 148720084 Active 2018 Colten Castro PA-C Attn: Accountin g,[address] [facility], [place], [address], [place] [facility] 9 12:14:26 Screenin g for malignan t neoplasm of breast Active 2019 Colten Castro PA-C Attn: Accountin g,[address] [facility], [place], [address], [place] [facility] 0 15:54:31 Kidney stone 97029437 Active 2019 Colten Castro PA-C Attn: Accountin g,[address] [facility], [place], [address], [place] [facility] 0 16:49:59 Herpes zoster 2720304 Active 2019 Colten Castro PA-C Attn: Accountin g,[address] [facility], [place], [address], [place] [facility] 0 11:13:52 Dysuria 07272756 Active 2019 Colten Castro PA-C Attn: Accountin g,[address] [facility], [place], [address], [place] [facility] 0 12:36:07 Bilatera l osteoart hritis of knees 30567930128 9107 Active 2019 moderate tricompa rtmental degenera tive changes bilatera l knees ; see xray 05/22/20 20 Colten Castro PA-C Attn: Accountin g,[address] [facility], [place], [place], [address] [place] [address] 2, [place] [facility] 0 18:48:19 Osteopen ia 588888292 Active 2020 see DEXA scan 2 Colten Castro PA-C Attn: Accountin g,[address] [facility], [place], [place], [address] [place] [address] 2, [place] [facility] 1 12:18:44 Flank pain 911149554 Active 2021 Colten Castro PA-C Attn: Accountin g,[address] [facility], [place], [place], [address] [place] [address] 2, [place] [facility] 2 15:25:06 Knee pain Active Colten Castro PA-C Attn: Accountin g,[address] [facility], [place], [address] [place] [address] 2, [place] [facility] 6 17:21:11 Anemia 989904076 Active Colten Castro PA-C Attn: Accountin g,[address] [facility], [place], [place], [address] [place] [address] 2, [place] [facility] 5 17:31:50 Tobacco user 848466803 Active Colten Castro PA-C Attn: Accountin g,[address] [facility], [place], [place], [address] [place] [address] 2, [place] [facility] 6 16:15:31 Costal chondrit is 78677822 Active UQ-Rib Colten Castro PA-C Attn: Accountin g,[address] [facility], [place], [place], [address] [place] [address] 2, [place] [facility] 5 15:48:28 Sprain of ankle 74042985 Active Rosalia Aleman [place] null, [place] [facility] 5 15:33:50 Gastroes ophageal reflux disease 277090760 Active Colten Castro PA-C Attn: Accountin g,[address] [facility], [place], [place], [address] [place] [address] 2, [place] [facility] 6 16:15:31 Iron deficien cy 67334955 Active Colten Castro PA-C Attn: Accountin g,[address] [facility], [place], [address], [place] [facility] 6 16:15:31 Plantar fasciiti s 441310420 Active Colten Castro PA-C Attn: Accountin g,[address] [facility], [place], [address], [place] [facility] 5 15:48:28 Disorder of joint of spine 973079850 Active Colten Castro PA-C Attn: Accountin g,[address] [facility], [place], [address], [place] [facility] 6 13:53:15 Contact dermatit is 17989632 Active Colten Castro PA-C Attn: Accountin g,[address] [facility], [place], [place], [address] [place] [address] 2, [place] [facility] 5 15:21:08 Acute urinary tract infectio n 639066313 Active Colten Castro PA-C Attn: Accountin g,[address] [facility], [place], [address], [place] [facility] 5 17:31:50 Insomnia 445526665 Active Colten Castro PA-C Attn: Accountin g,[address] [facility], [place], [address], [place] [facility] 6 16:15:31 Acute follicul itis 330528861 Active Colten Castro PA-C Attn: Accountin g,[address] [facility], [place], [address], [place] [facility] 6 17:21:11 Shoulder strain 612373204 Active Colten Castro PA-C Attn: Accountin g,[address] [facility], [place], [address], [place] [facility] 6 12:41:03 Sinusiti s 14676628 Active Colten Castro PA-C Attn: Accountin g,[address] [facility], [place], [address], [place] - [facility] 6 13:53:15 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 Procedures Surgical History Date Name Laterality Status Provider Name and Address Organization Details Recorded Time 05/06/2021 Date of Last Pap Smear completed Kaelyn Shelton [place] - [facility] 10/27/2022 14:33:27 Imaging Results None recorded. Procedure Notes None recorded. Medical Equipment None Reported. Allergies No known drug allergies Medications Name Sig Start Date Stop Date Status Note LastModified by Organization Details LastModified Time cyclobenzap rine 10 mg tablet Take 1 tablet every day by oral route at bedtime for 30 days. 09/02 completed Not Available Not Available Not Available amoxicillin 500 mg capsule 07/10 completed Not Available Not Available Not Available promethazin e-DM 6.25 mg-15 mg/5 mL oral syrup Take 5 mL 3 times a day by oral route as needed for 10 days. 06/25 completed Not Available Not Available Not Available Colace 100 mg capsule Take 1 capsule twice a day by oral route as needed. 06/25 completed Not Available Not Available Not Available clindamycin HCl 300 mg capsule Take 1 capsule(s ) every 6 hours by oral route after meals for 10 days. 09/23 completed Not Available Not Available Not Available trazodone 50 mg tablet TAKE 1 TABLET BY MOUTH EVERY NIGHT AT BEDTIME 06/25 completed Not Available Not Available Not Available azithromyci n 250 mg tablet 07/10 completed Not Available Not Available Not Available ibuprofen 800 mg tablet TAKE 1 TABLET BY MOUTH THREE TIMES DAILY WITH FOOD active Not Available Not Available No t Available fluconazole 150 mg tablet Take 1 tablet 3 times a week by oral route for 7 days. 09/02 completed Not Available Not Available Not Available hydrocodone 5 mg-acetamin ophen 325 mg tablet Take 1 tablet twice a day by oral route as needed for 30 days. 10/19 completed Not Available Not Available Not Available minocycline 100 mg capsule 09/02 completed Not Available Not Available Not Available Zyvox 600 mg tablet active Not Available Not Available No t Available phenazopyri dine 200 mg tablet Take 1 tablet 3 times a day by oral route for 2 days. 11/07 completed Not Available Not Available Not Available prednisone 20 mg tablet TAKE 2 TABLETS BY MOUTH TWICE DAILY FOR 2 DAYS, THEN 1 TWICE DAILY FOR 5 DAYS, ONE-HALF TWICE DAILY FOR 2 DAYS THEN HALF ON DAY 10 07/10 completed Not Available Not Available Not Available prednisone 5 mg tablet Take 1 tablet every day by oral route for 30 days. 07/10 completed Not Available Not Available Not Available metronidazo le 500 mg tablet Take 1 tablet twice a day by oral route for 7 days. 07/10 completed Not Available Not Available Not Available acetaminoph en 300 mg-codeine 30 mg tablet active Not Available Not Available Not Available ciprofloxac in 250 mg tablet active Not Available Not Available Not Available ciprofloxac in 500 mg tablet Take 1 tablet every 12 hours by oral route for 10 days. 09/06 completed Not Available Not Available Not Available sulfamethox azole 800 mg-trimetho prim 160 mg tablet Take 1 tablet every 12 hours by oral route after meals for 5 days. 09/23 completed Not Available Not Available Not Available peg-electro lyte solution 420 gram oral solution 09/23 completed Not Available Not Available Not Available acyclovir 800 mg tablet Take 1 tablet 5 times a day by oral route for 14 days. 07/10 completed Not Available Not Available Not Available meloxicam 7.5 mg tablet active Not Available Not Available Not Available amoxicillin 875 mg tablet 07/10 completed Not Available Not Available Not Available citalopram 20 mg tablet Take 1 tablet every day by oral route in the evening for 30 days. 09/02 completed Not Available Not Available Not Available tamsulosin 0.4 mg capsule TAKE 1 CAPSULE BY MOUTH EVERY DAY AFTER A MEAL...30 MINUTES AFTER SUPPER 10/27 completed Not Available Not Available Not Available baclofen 10 mg tablet TAKE 1 TABLET BY MOUTH THREE TIMES DAILY NEEDED 09/23 completed Not Available Not Available Not Available doxycycline monohydrate 100 mg capsule 10/27 completed Not Available Not Available Not Available triamcinolo ne acetonide 40 mg/mL suspension for injection Take 1 mL by injection route for 1 day. 09/02 completed Not Available Not Available Not Available hydrocodone 7.5 mg-acetamin ophen 325 mg tablet Take 1 tablet 3 times a day by oral route as needed for 30 days. 07/10 completed Not Available Not Available Not Available cephalexin 500 mg capsule 06/25 completed Not Available Not Available Not Available ferrous sulfate 325 mg (65 mg iron) tablet Take 1 tablet twice a day by oral route with meals for 30 days. 09/02 completed Not Available Not Available Not Available triamcinolo ne acetonide 0.1 % topical ointment APPLY A THIN LAYER TO THE AFFECTED AREA(S) BY TOPICAL ROUTE 2 TIMES PER DAY 09/02 completed Not Available Not Available Not Available promethazin e 25 mg tablet 06/25 completed Not Available Not Available Not Available polymyxin B sulfate 10,000 unit-trimet hoprim 1 mg/mL eye drops active Not Available Not Available Not Available gabapentin 300 mg capsule TAKE 1 CAPSULE BY MOUTH THREE TIMES DAILY 10/27 completed Not Available Not Available Not Available omeprazole 20 mg capsule,del ayed release Take 1 capsule twice a day by oral route for 30 days. 07/10 completed Not Available Not Available Not Available lisinopril 5 mg tablet 06/25 completed Not Available Not Available Not Available levofloxaci n 500 mg tablet TAKE 1 TABLET BY MOUTH EVERY 24 HOURS AFTER A MEAL FOR 7 DAYS active Not Available Not Available No t Available methylpredn isolone 4 mg tablets in a dose pack 06/25 completed Not Available Not Available Not Available SSD 1 % topical cream 09/02 completed Not Available Not Available Not Available doxycycline hyclate 100 mg tablet 09/23 completed Not Available Not Available Not Available amoxicillin 875 mg-potasskelsi m clavulanate 125 mg tablet TAKE 1 TABLET BY MOUTH EVERY 12 HOURS FOR 10 DAYS 07/10 completed Not Available Not Available Not Available nicotine 7 mg/24 hr daily transdermal patch Apply 1 patch every day by transderm al route for 30 days. 07/02 completed Not Available Not Available Not Available Humira 40 mg/0.8 mL subcutaneou s syringe kit 09/02 completed Not Available Not Available Not Available acyclovir 5 % topical cream APPLY EXTERNALL Y TO THE AFFECTED AREA FIVE TIMES DAILY 10/27 completed Not Available Not Available Not Available nitrofurant oin monohydrate /macrocryst als 100 mg capsule Take 1 capsule twice a day by oral route for 10 days. 11/28 completed Not Available Not Available Not Available duloxetine 30 mg capsule,del ayed release 10/27 completed Not Available Not Available Not Available pregabalin 25 mg capsule 10/27 completed Not Available Not Available Not Available pregabalin 50 mg capsule 09/23 completed Not Available Not Available Not Available cholecalcif edie (vitamin D3) 1,250 mcg (50,000 unit) capsule Take 1 capsule every week by oral route as directed for 30 days. 09/23 completed Not Available Not Available Not Available diclofenac 1 % topical gel APPLY 2 GRAMS EXTERNALL Y TO THE AFFECTED AREA FOUR TIMES DAILY 09/02 completed Not Available Not Available Not Available Calcium with Vitamin D 600 mg-10 mcg (400 unit) tablet Take 1 tablet every day by oral route as directed for 30 days. 09/23 completed Not Available Not Available Not Available Pennsaid 20 mg/gram/act uation (2 %) topical soln in metered-dos e pump APPLY 2 PUMPS (40 MG) TO THE AFFECTED KNEE(S) BY TOPICAL ROUTE 2 TIMES PER DAY 07/10 completed Not Available Not Available Not Available Cosentyx Pen 300 mg/2 Pens (150 mg/mL) subcutaneou s 09/23 completed Not Available Not Available Not Available Humira(CF) 40 mg/0.4 mL subcutaneou s syringe kit 09/23 completed Not Available Not Available Not Available vitamin D3 1,250 mcg (50,000 unit)-vitam in K2 200 mcg capsule active Not Available Not Available Not Available Vitals Date Recorded Body height Body mass index (BMI) Body weight Oxygen saturation Oxygen saturation in Arterial blood by Pulse oximetry Heart rate Body temperature Systolic blood pressure Diastolic blood pressure Provider Name and Address Organization Details Last Updated DateTime 5 158.75 cm 27.7 kg/m2 85129.2 2 g 100 % 100 % 78 /min 97.8 [degF] 110 mm[Hg] 70 mm[Hg] Kaelyn Shelton [place] - [facility] 10:02:40 Social History Question Answer Notes LastModified by Organizat ion Details LastModified Time Tobacco Smoking Status Former Smoker quit 6 months ago Kaelyn Shelton MA null, [place] - [facility] 09/23/2024 10:00:28 Do You Have An Advance Directive? No Information not available 09/26/2014 What Is Your Level Of Alcohol Consumption? Occasional Information not available 09/26/2014 Are You Blind Or Do You Have Difficulty Seeing? No Information not available 09/26/2014 What Is Your Level Of Caffeine Consumption? None Information not available 09/26/2014 How Much Tobacco Do You Chew? None Information not available 09/26/2014 Are You Currently Employed? No Information not available 04/29/2023 Are You Deaf Or Do You Have Serious Difficulty Hearing? No Information not available 09/26/2014 What Type Of Diet Are You Following? REGULAR Information not available 09/26/2014 Do You Or Have You Ever Used E-cigarettes Or Vape? Never Used Electronic Cigarettes Information not available 11/08/2019 Education 12 Information no t available 09/26/2014 What Is The Highest Grade Or Level Of School You Have Completed Or The Highest Degree You Have Received? [id number] Information not available 04/29/2023 Are There Any Guns Present In Your Home? No Information not available 09/26/2014 Hard Of Hearing Or Deaf In One Or Both Ears? No Information not available 09/26/2014 Legally Blind In One Or Both Eyes? No Information not available 09/26/2014 Marital Status Informatio n not available 09/26/2014 What Was The Date Of Your Most Recent Tobacco Screening? 09/23/2024 Information not available 09/23/2024 Performs Monthly Self-breast Exam? Yes Information not available 09/26/2014 What Is Your Relationship Status? Information not available 04/29/2023 Seat Belts Used Routinely Yes Information not available 09/26/2014 Smoke Alarm In Home Yes Information not available 09/26/2014 Do You Have Smoke And Carbon Monoxide Detectors In Your Home? Yes Information not available 04/29/2023 At What Age Did You Start Smoking Tobacco? 22 Information not available 09/26/2014 Do You Or Have You Ever Used Smokeless Tobacco? Never Used Smokeless Tobacco Information not available 11/08/2019 How Much Tobacco Do You Smoke? 0.25 PPD Information not available 09/26/2014 General Stress Level Medium Information not available 09/26/2014 Do You Feel Stressed (tense, Restless, Nervous, Or Anxious, Or Unable To Sleep At Night)? [id number] Information not available 04/29/2023 Do You Use Any Illicit Or Recreational Drugs? No Information not available 04/29/2023 Do You Use Sunscreen Routinely? No Information not available 09/26/2014 On What Date Was Tobacco Cessation Counseling Provided? 09/23/2024 Information not available 09/23/2024 Do You Or Have You Ever Used Any Other Forms Of Tobacco Or Nicotine? No Information not available 09/23/2024 Sex: Female Functional Status Question Answer Note LastModified by Organizat ion Details LastModified Time Do you have difficulty walking or climbing stairs? No Information not available 09/26/2014 Do you have difficulty doing errands alone? No Information not available 09/26/2014 Do you have difficulty dressing or bathing? No Information not available 09/26/2014 What is your exercise level? Occasional Information not available 09/26/2014 Mental Status Question Answer Note LastModified by Organization D etails LastModified Time Do you have difficulty concentrating, remembering or making decisions? No Information no t available 09/26/2014 Family History Relationship Description Onset Age of this Age Resolved Age Notes LastModified by Organization Details LastModified Time Father No current problems or disability [email or web address] Not available 09/02 15:38:27 Mother No current problems or disability [email or web address] Not available 09/02 15:38:27 Medical History Condition Response COPD Y Gynecological History Statement/Question Response Date of Last Pap Smear 05/06/2021 Current Control Method None Date of LMP Obstetrics History GPAL:G 0 P 0 0 0 0 Immunizations Vaccine Type Date Status Note Provider Srinivasa de la paz and Address Organization Details Recorded Time COVID-19, mRNA, LNP-S, PF, 100 mcg/0.5mL dose or 50 mcg/0.25mL dose 10/09/2020 completed DEXTER Villasenor [place] [facility] 04/23/2021 16:57:45 COVID-19, mRNA, LNP-S, PF, 100 mcg/0.5mL dose or 50 mcg/0.25mL dose 11/06/2020 completed DEXTER Villasenor [place] - [facility] 04/23/2021 16:57:54 Past Encounters Encounter ID Performer Location Encounter Start Date Encounter Closed Date Diagnosis/Indication Diagnosis SNOMED-CT Code Diagnosis ICD10 Code Diagnosis Note [id number] Sami (Adult Med) [facility] [place] [address] 09/23/2024 09:50:45 09/23/2024 10:31:58 Edema of right lower limb 206182568 R60.0 Bedridden after surgery for several months. Acute swelling left lower extremity. Will get stat venous doppler study. If unable to get it approved through insurance today will send her to ER. Discussed this with patient. Health Concerns Section Related Observation LastModified by Organization Detai ls LastModified Time None Recorded Concern Status LastModified by Organization Details LastModified Time None Recorded Payers Encounter Date Sequence Insurance Name Policy Number Policy Vega Covered Member ID Vega Member ID Guarantor Name 09/23/2024 1 [facility] [id number] [employer] a[employer] [id number] Ada Cong Notes Date Note Type Note Provider Name and Address Organization Details Recorded Time 09/23/2024 text/html establish care, make appointment awhile ago because had surgery under arms, was on medicine, couldn't eat much because of taste, couldn't eat much, eating better now, swelling in left ankle, maybe for two weeks, no pain, no injury, no shortness of breath, no PND, no other medical problems, had surgery for infection in gluteal area as well, still has pain there and hard to lay down on her back, recently bed ridden after surgery for several months, was bedridden from March to July, no chest pain Christie Valdivia MD Attn: Accounting[address] [place], [address], [facility] - [facility] 09/23/2024 10:32:56 OBGyn Episode No OBEpisode recorded.
--- OUTSIDE RECORDS SUMMARY | 2024-09-23 14:42 | XMS_ITS | Clinical Summary ---
Author Organization [facility] [employer] Address [address] [place] [address] Care Team Providers Care Hemodialysis Technician Name Role Phone Colten Castro Primary Care Provider + Source Comments [facility] [employer],non-owned Affiliates and Associated Physician Practices is amultiple site organization consisting of ambulatory clinics and hospital sitesin [place], [place], [place] and [place]. This disclosure is being madepursuant to the Care Everywhere program and may not contain all information available regarding this patient. Last updated 18.[facility] [employer] Allergies No known active allergies Medications * Be aware that medications may not be up to date on this document. Alwaysverify current medications with the patient. Medication Sig Dispensed Refills Start Date End Date Status ibuprofen (Motrin) 800 MG tabletIndications:Ser onegative rheumatoid arthritis of multiple sites (HCC),Primary osteoarthritis of first carpometacarpal joint of right hand,Primary osteoarthritis of both knees Take 1 (one) tablet by mouth every 8 hours as needed for Pain 90 tablet 04/19/2024 Active naloxone HCl (Narcan) 4 MG/0.1ML nasal sprayIndications:Opia te use [place] 1 (one) spray into the nose as needed (May repeat every 2 min in alternating nostrils until emergency medical help arrives for overdose) 2 Each 06/22/2024 Active Active Problems Problem Noted Date Diagnosed Date Immunosuppressed status 08/17/2024 termite treater helper (current) use of i mmunosuppressive biologic (infliximab anti TNF Rx) 03/23/2024 Carpal tunnel syndrome on both sides 09/23/2023 Fibromyalgia syndrome 02/05/2022 Assessment & Plan (02/05/2022 7:04 AM CDT): Predominant lower extremity myofascial type pain symptoms but also with prominent finding of fibromyalgia tender points 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 Discussed diagnostic and treatment approach including the use of duloxetine. Reviewed potential side effects that can be associated with the use of duloxetine. Patient in agreement to start treatment. Duloxetine 30 mg daily will be initiated but certainly can be titrated in dose tolerated and required for additional efficacy up to 40-60 mg daily. Hidradenitis suppurativa 08/13/2021 Assessment & Plan (08/17/2024 2:28 PM CUTTING AND BONING SUPERVISOR): Good wound healing with wound care specialty services and now off antibiotics in has received her initial dose of infliximab 5 milligram/kilogram awaiting 2nd of 3 initial loading doses but now currently attempting to identify a off site insurance authorized infusion center to continue her needed anti TNF biologic treatment. Assessment & Plan (02/05/2022 7:02 AM CDT): Requiring ongoing use of weekly Humira anti TNF therapy with sustained benefit although still with some breakthrough lesions including current left facial cyst. Assessment & Plan (08/13/2021 2:40 PM CUTTING AND BONING SUPERVISOR): Active lesion noted in the left axilla with small area of superficial skin ulceration needs close monitoring for any significant worsening which might require additional intervention beyond her current weekly dosed Humira. 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 Refer to comments below regarding fibromyalgia. Assessment & Plan (08/13/2021 2:39 PM CUTTING AND BONING SUPERVISOR): Currently appears to be well controlled and in clinical remission while receiving high-dose weekly Humira 40 mg (weekly dosing mainly for treatment of hidradenitis suppurativa). No change in current treatment plan with additional 1 year refills provided. Clinical reassessment again in 6 months or sooner if needed. High risk medications (not a nticoagulants) long-term use 08/13/2021 03/23/2024 Assessment & Plan (02/05/2022 7:01 AM CDT): No recent complication including infection issues associated with the continued use of high-dose weekly Humira anti TNF therapy. Again reviewed some potential adverse effects that can be associated with this form of treatment. Potential treatment related adverse effects related to the use of the anti TNF biologic disease modifier treatments such as Humira includes but is not limited to injection reactions, infectious complications including tuberculosis, viral and fungal infections, optic neuritis, demyelinating nervous system disorder such as multiple sclerosis, and the potential future increased risk to develop some forms of malignancy/cancer including lymph node cancer or skin cancers. I have strongly encouraged all available COVID-19 vaccinations including booster vaccinations, routine annual vaccinations for influenza and updated pneumococcal vaccinations when required. Administration of a shingles vaccine if appropriate would be strongly encouraged. Should avoid the use of all live virus vaccines when using an anti TNF treatment. It is also very important to hold the use of Humira in case of suspected infection, confirmed infection and or use of antibiotics as well as also inform your local delivery driver of any upcoming elective surgery in order to be advised on when to hold the use of the specific anti TNF treatment in order to reduce the risk of possible postoperative infection complications. We had a discussion about these complex clinical issues and went over the various important aspects to consider and the patient verbalized good understanding of these risk after all questions were answered and gave verbal consent to continue active treatment. Encounters Date Type Department Care Team Description 09/15/2024 Refill [facility] - Rheumatology [address] [place] [address], [address] [place] [id number] Jaskaran Paul DO MEDICATION REFILL 08/17/2024 1:40 PM CUTTING AND BONING SUPERVISOR Office Visit [facility] - Rheumatology [address] [place] [address], [address] [place] [address] Jaskaran Paul DO Hidradenitis suppurativa (Primary Dx); Immunosuppressed status; care home (current) use of immunosuppressive biologic (infliximab anti TNF Rx) 08/15/2024 Telephone [facility] - Rheumatology [address], [address] [place] [address] Jaskaran Paul, Update 08/08/2024 Telephone [facility] - Rheumatology [address], [address] [place] [id number] Jaskaran Paul DO Update 08/04/2024 8:08 AM CUTTING AND BONING SUPERVISOR - 08/04/2024 11:59 PM CUTTING AND BONING SUPERVISOR Hospital Encounter [facility] [address] [place] [id number] Jaskaran Paul DO Rheumatology Discharge Disposition: Home or Self Care 07/27/2024 Telephone [facility] - Rheumatology [address], [address] [place] [id number] Jaskaran Paul DO Update 07/22/2024 Refill [facility] - Rheumatology [address] [place], [place] [address] [place], [address] [place] [id number] Jaskaran Paul, Refill Request 07/13/2024 Orders Only [facility] - Rheumatology [address] [place] [id number] Jaskaran Paul, 07/13/2024 Telephone [facility] - [facility]umatology [address] [place] [id number] Jaskaran Paul, Medication Prior Auth Request 07/07/2024 Orders Only [facility] - Rheumatology [address] [place], [place] [address], [address] [place] [id number] Jaskaran Paul, 07/05/2024 Orders Only [facility] - Rheumatology [address] [place], [place] [address], [address] [place] [id number] Jaskaran Paul, 06/30/2024 Orders Only [facility] - Rheumatology [address] [place], [place] [address], [address] [place] [id number] Jaskaran Paul, Screening for tuberculosis ; High risk medication use from Last 3 Months Social History Tobacco Use Types Packs/Day Years Used Date Smoking Tobacco: Every Day Smokeless Tobacco: Never Tobacco Cessation:Ready to Q uit: Yes; Counseling Given: Yes Alcohol Use Standard Drinks/Week Comments Yes 0 (1 standard drink = 0.6 oz pur e alcohol) PHQ-2 Answer Date Recorded Patient Health Questionnaire-2 Score 2 08/17/2024 Sex and Gender Information Value Date Recorded Sex Assigned at Not on file Gender Identity Not on file Sexual Orientation Not on file Last Filed Vital Signs Vital Sign Reading Time Taken Comments Blood Pressure 110/60 08/17/2024 1:48 PM CUTTING AND BONING SUPERVISOR Pulse 84 08/17/2024 1:48 PM CUTTING AND BONING SUPERVISOR Temperature 36.1 C (97 F) 08/17/2024 1:48 PM CUTTING AND BONING SUPERVISOR Respiratory Rate 16 08/17/2024 1:48 PM CUTTING AND BONING SUPERVISOR Oxygen Saturation 100% 08/17/2024 1:48 PM CUTTING AND BONING SUPERVISOR Inhaled Oxygen Concentration - - Weight 68 kg (150 lb) 08/17/2024 1:48 PM CUTTING AND BONING SUPERVISOR Height 160 cm (5' 3 ) 01/27/2024 3:21 PM CDT Body Mass Index 26.57 01/27/2024 3:21 PM CDT Plan of Treatment Upcoming Encounters Date Type Department Care Team (Late st Contact Info) Description 09/28/2024 2:00 PM CDT Office Visit [facility] - Rheumatology [address], [address] [place] [address] Jaskaran Paul DO [address] [place] [address] Health Maintenance Due Date Last Done Comments COLOGUARD (AGES 45-75) - COL ON CA SCREENING 1966 COLON MONITORING 1966 COLONOSCOPY - COLON CA SCREENING 1966 CT COLONOGRAPHY - COLON CA SCREENING 1966 Colorectal Cancer Screening 1966 FIT - COLON CA SCREENING 1966 FLEX SIG - COLON CA SCREENING 1966 LIPID TESTING 1966 MAMMOGRAM 1966 MEDICARE AWV 12 MONTHS 1966 PAP SMEAR 1966 HIV SCREENING 1981 DTAP/TDAP/TD VACCINES (1 - Tdap) 1985 HEPATITIS B VACCINE (1 of 3 - 19+ 3-dose series) 1985 PNEUMOCOCCAL VACCINE 50+ (1 of 2 - PCV) 1985 ZOSTER VACCINE (1 of 2) 1985 COVID-19 VACCINE (3 - Modern a risk series) 12/04/2020 11/06/2020, 10/09/2020 SCREENING FOR DIABETES 04/09/2023 04/09/2020 INFLUENZA VACCINE (#1) 2024 HEPATITIS C SCREENING Completed 03/25/2021 , 04/09/2020 DEPRESSION SCREENING Completed 08/17/2024 HIB VACCINE Aged Out No longer eligi ble based on patient's age to complete this topic HPV VACCINE Aged Out No longer eligi ble based on patient's age to complete this topic MENINGOCOCCAL (Group B) VACCINE SHARED DECISION-MAKING Aged Out No longer eligible based on patient's age to complete this topic MENINGOCOCCAL GROUPS A/C/Y/W VACCINE Aged Out No longer eligible b ased on patient's age to complete this topic Procedures Procedure Name Priority Date/Time Associated Diagnosis Comments QUANTIFERON-TB GOLD PLUS 1-TUBE 07/07/2024 3:36 PM CUTTING AND BONING SUPERVISOR HEPATITIS C AB W/RFLX TO HCV RNA QN PCR 03/25/2021 11:34 AM CDT COMPREHENSIVE METABOLIC PANEL 04/09/2020 1:34 PM CDT from Last 3 Months or Most Recently Relevant to Health Maintenance Results * QUANTIFERON-TB GOLD PLUS 1-TUBE (07/07/2024 3:36 PM CUTTING AND BONING SUPERVISOR) [facility] QuantiFERON TB Gold Plus NEGATIVE NEGATIVE [facility] Comment: Negative test result. M. tuberculosis complex infection unlikely. NIL 0.06 IU/mL [facility] MITOGEN MINUS NIL RESULT 8.68 IU/mL [facility] TB1-NIL 0.00 IU/mL [facility] TB2-NIL 0.02 IU/mL [facility] Comment: The Nil tube value reflects the background interferon gamma immune response of the patient's blood sample. This value has been subtracted from the patient's displayed TB and Mitogen results. Lower than expected results with the Mitogen tube prevent false-negative Quantiferon readings by detecting a patient with a potential immune suppressive condition and/or suboptimal pre-analytical specimen handling. The TB1 Antigen tube is coated with the M. tuberculosis-specific antigens designed to elicit responses from TB antigen primed CD4+ helper T-lymphocytes. The TB2 Antigen tube is coated with the M. tuberculosis-specific antigens designed to elicit responses from TB antigen primed CD4+ helper and CD8+ cytotoxic T-lymphocytes. For additional information, please refer to https://[employer]/faq/ESE733 (This link is being provided for informational/ educational purposes only.) Test Performed at: [facility] [id number] [place] [address] VERNON CALVO MD 07/07/2024 3:36 PM CUTTING AND BONING SUPERVISOR 07/07/2024 3:36 PM CUTTING AND BONING SUPERVISOR Jaskaran Paul DO LAB - CHEMISTRY WILL SIMON Performing Organization Address [facility] Co de Phone Number [facility] [address] [place] [phone] * HEPATITIS C AB W/RFLX TO HCV RNA QN PCR (03/25/2021 11:34 AM CDT) Hepatitis C Antibody NON-REACTI VE NON-REACT MIGUEL ÁNGEL [facility] Signal to Cut-Off 0.05 <1.00 [facility] Comment: HCV antibody was non-reactive. There is no laboratory evidence of HCV infection. In most cases, no further action is required. However, if recent HCV exposure is suspected, a test for HCV RNA (test code 13604) is suggested. For additional information please refer to http://[employer]/faq/JGP69g2 (This link is being provided for informational/ educational purposes only.) Test Performed at: [facility] [address] [address] [facility] [place] [address] SUZANNE DOW DO,MPH 03/25/2021 11:3 4 AM CDT 03/25/2021 11:37 AM CDT Jeremy Torres MD LAB - CHEMISTRY OR DERABLES Performing Organization Address City/[facility]/ZIP Co de Phone Number [facility] [address] [place] [address] * (ABNORMAL) COMPREHENSIVE METABOLIC PANEL (04/09/2020 1:34 PM CDT) [facility] Glucose 86 65 - 139 mg/dL [facility] Comment: Non-fasting reference interval BUN 12 7 - 25 mg/dL [facility] Creatinine 0.68 0.50 - 1.05 mg/dL [facility] Comment: For patients >49 years of age, the reference limit for Creatinine is approximately 13% higher for people identified as -Haitian. eGFR by MDRD 100 > OR = 60 mL/min/1 .73m2 [facility] eGFR by MDRD 116 > OR = 60 mL/min/1 .73m2 [facility] BUN/Creatinine Ratio NOT APPLICABLE 6 - 22 (calc) [facility] Sodium 140 135 - 146 mmol/L [facility] Potassium 3.6 3.5 - 5.3 mmol/L [facility] Chloride 107 98 - 110 mmol/L [facility] CO2 28 20 - 32 mmol/L [facility] Calcium 8.7 8.6 - 10.4 mg/dL [facility] Protein Total 8.7(H) 6.1 - 8.1 g/dL [facility] Albumin 3.3(L) 3.6 - 5.1 g/dL [facility] Globulin Total 5.4(H) 1.9 - 3.7 g/dL (calc) [facility] Albumin/Globulin Ratio 0.6(L) 1.0 - 2.5 (calc) [facility] Bilirubin Total 0.4 0.2 - 1.2 mg/dL [facility] Alkaline Phosphatase 72 37 - 153 U/L [facility] AST 13 10 - 35 U/L [facility] ALT 8 6 - 29 U/L [facility] Comment: Test Performed at: [facility] [address] [address] SUZANNE DOW DO,MPH 04/09/2020 1:34 PM CDT 04/09/2020 1:34 PM CDT Jeremy Torres MD LAB - CHEMISTRY OR DERABLES Performing Organization Address [facility] Co de Phone Number [facility] [address] [place] [address] from Last 3 Months or Most Recently Relevant to Health Maintenance Care Teams Hemodialysis Technician Relationship Specialty Start Date End Date Colten Castro PA [address] [place] [phone] PCP - General Physician Adaptive Physical Education Specialist 07/24/16
--- OUTSIDE RECORDS SUMMARY | 2024-09-23 14:42 | XMS_ITS | Clinical Summary ---
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 Gender Identity Not on file Sexual Orientation Not on file Plan of Treatment Health Maintenance Due Date Last Done Comments Hepatitis C Virus (HCV) Screening 1966 TdaP Immunization 1966 Hepatitis B Immunization (1 of 3 - 19+ 3-dose series) 1985 Pap Smear 1987 Cervical Cancer Screening (CCS) 1996 HPV/Cotest 1996 Colonoscopy 2011 Colorectal Cancer Screening 2011 Cologuard 2016 Immunochemical Fecal Occult Blood 2016 Mammogram 2016 Pneumococcal Immunization (5 0+ years) (1 of 1 - PCV) 2016 Zoster Immunization (1 of 2) 2016 Influenza Immunization (#1) 2024 SARS-COV-2 Immunization ( season) 2024 Respiratory Syncytial Virus (RSV) Immunization (Adult) (1 - 1-dose 75+ series) 2041 Meningococcal Immunization (ACWY) Aged Out No longer eligible based on patient's age to complete this topic Pneumococcal Immunization Combined Aged Out No longer eligible based on patient's age to complete this topic Rotavirus Immunization Aged Out No lo nger eligible based on patient's age to complete this topic
--- OUTSIDE RECORDS SUMMARY | 2024-09-23 14:43 | XMS_ITS | Encounter Summary ---
Author Organization [facility] Address [address] [place] [address] Care Team Providers Care Byproduct Engineer Name Role Phone Unavailable Primary Care Provider Unavailabl e Reason for Visit * Reason Onset Date Comments PLS HELP W ANTIBIOTIC SELECT ION, DURATION, HYDRADENITIS SUP 06/17/[address] BOX' [facility]ura AFTER HOURS # Encounter Details Date Type Department Care Team (Late st Contact Info) Description 06/17/2024 Telephone [facility] Ad[facility] [address] [place] [address] [place] [address] [facility] [address] [place] [address] PLS HELP W ANTIBIOTIC SELECTION, DURATION, HYDRADENITIS SUP (LEFT MESSAGE AT DR BOX'Aura AFTER HOURS #) Social History Tobacco Use Types Packs/Day Years [...] on file 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
--- OUTSIDE RECORDS SUMMARY | 2024-09-23 14:43 | XMS_ITS | Encounter Summary ---
Author Organization [facility] Address [address] [place] [address] Care Team Providers Care Radiotelegraph Operator Name Role Phone Unavailable Primary Care Provider Unavailabl e Reason for Visit * Reason Onset Date Comments Sepsis, likely secondary to hidrodenitis supprative 06/14/2024 Spoke w/Talia at Dr. 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 Shannon exchange/Dr. 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
--- OUTSIDE RECORDS SUMMARY | 2024-09-23 14:43 | XMS_ITS | Data Portability ---
Author Organization [facility] Address [address] [place] [address] Assessment No assessment recorded. Plan of Treatment Reminders Order Date Submit Date Provider Last Modified By Organization Details Last Modified Time Details Appointments ANY 2024 09:00A Nidia Valdivia MD Not available Not available Not available ANY 2024 01:30P Nidia Valdivia MD Not available Not available Not available Lab TSH, ultra-sen sitive, serum 2022 023 kfarroll [facility], [address] [place] [address], [address], [place], [address], 10/27/2022 15:34:06 lipid panel, serum 2022 023 dmilesma [facility], [address] [place] [address], [address], [place], [address], 02/12/2023 11:37:08 pap, IG + HPV, cervical 2022 023 CASSI [facility], [address] [place] [address], [address], [place], [address], 10/31/2022 13:12:35 Referral gastroent erologist referral - Please call patient for appointme nt, thanks! 2022 023 Zoë Rogers MD, [address] [facility], [place], [address], 12/16/2023 13:15:43 Procedures None recorded. Surgeries None recorded. Imaging US, doppler, venous - has been bedridden for many months, acute swelling of left lower extremity 2024 025 [facility] (Imaging), [address], [place], [address], 09/23/2024 10:40:43 LDCT, chest, for lung cancer screening 2022 023 [facility] ([facility]), [address] [place], [address], 12/17/2022 15:17:23 MAMMO, screening , digital, bilateral [address] [facility] ([facility]), [address] [place], [address], 11/04/2022 16:31:16 Medication Orders clindamyc in HCl 300 mg capsule 2022 023 [id number], [address], [place], [id number], 09/23/2024 09:59:30 Bactrim DS 800 mg-160 mg tablet 2022 023 [facility] #[id number], [address], [place], [id number], 09/23/2024 09:59:52 cholecalc iferol (vitamin D3) 1,250 mcg (50,000 unit) capsule 2022 023 [facility] #[id number], [address], [place], [id number], 09/23/2024 09:59:25 Calcium with Vitamin D 600 mg-10 mcg (400 unit) tablet 2022 023 [facility] #[id number], [address], [place], [id number], 09/23/2024 09:59:20 Patient TargetsNo targets recorded. Patient Instructions Encounter Date Encounter Id Patient Instructions Last Modified By Organization Details Last Modified Time 10/08/2022 [id number] anemia: care instructions [facility] Not available 10/08/2022 16:34:18 01/13/2023 [id number] Urinary Tract Infection (UTI) in Women: Care Instructions [facility] Not available 01/13/2023 15:15:33 Quitting Tobacco : Care Instructions [facility] Not available 01/13/2023 15:15:33 04/29/2023 [id number] A healthy lifestyle: care instructions [facility] Not available 04/29/2023 16:21:34 Reason for Referral Device Sales Consultant Referral for Screening for malignant neoplasm of colon Please call patient for appointment, thanks! Referring Physician: Xiomara Ryan, Internal Medicine, Encounter Date: 04/29/2023 Results Created Date Observation Date Name Description Value Unit Range Abnormal Flag Note LastModifiedBy Organization Detail LastModifiedTime 10/28/1910/29/2022 IGP, APTIM A HPV HPV aptima Negati ve negati ve This nucle ic acid ampli ficat ion test detec ts fourt een high- risk HPV types (16,1 8,31, 33,35 ,39,4 5,51, 52,56 ,58,5 9,66, 68) witho ut diffe renti ation . Not Available [facility] ([facility]) [address] [facility] [facility], [place], [address], 10/31/2022 13:12:35 10/28/1910/31/2022 IGP, APTIM A HPV diagnosis: Commen t NEGAT MIGUEL ÁNGEL FOR INTRA EPITH ELIAL LESIO N OR SAIRA HENDERSON . Not Available [facility] ([facility]) [address] [facility], [place], [address], 10/31/2022 13:12:35 10/28/19 23 10/31/2022 IGP, APTIM A HPV specimen adequacy: Commen t Satis facto ry for evalu ation . Endoc ervic al and/o r squam ous metap lasti c cells (endo cervi blair compo nent) are prese nt. Not Available [facility] ([facility]) [address] [place], [address], 10/31/2022 13:12:35 10/28/19 23 10/31/2022 IGP, APTIM A HPV clinician provided ICD10: Kulwinder strong Z13.2 20 R61 Z12.4 Not Available [facility] ([facility]) [address] [facility], [place], [address], 10/31/2022 13:12:35 10/28/19 23 10/31/2022 IGP, APTIM A HPV performed by: Kulwinder luther, Cytot riki love t (ASCP ) Not Available [facility] ([facility]) [address] [place], [address], 10/31/2022 13:12:35 10/28/19 23 10/31/2022 IGP, APTIM A HPV . . Not Available [facility] ([facility]) [address] [place], [address], 10/31/2022 13:12:35 10/28/19 23 10/31/2022 IGP, APTIM A HPV note: Kulwinder strong The Pap smear is a scree stephenie test desig abraham to aid in the detec tion of bel ligna nt and malig nant condi tions of the uteri ne cervi x. It is not a diagn ostic proce dure and shoul d not be used as the sole means of detec ting cervi blair cance r. Both false -posi tive and false -nega tive repor ts do occur . Not Available [facility] ([facility]) [address] [facility], [place], [address], 10/31/2022 13:12:35 06/14/20 24 06/14/2024 Compr ehens miguel ángel metab olic 2000 panel - Serum or Plasm a sodium [moles/volum e] in serum or plasma 131 mmol/ L low: 136mmo l/Lhig h: 145mmo l/L low SODIU M 131 (L) 136 - 145 mmol/ L 06/14 10:[address] [facility] Not Available Not Available 09/23/2024 09:51:52 06/14/20 24 06/14/2024 Compr ehens miguel ángel metab olic 1999 panel - Serum or Plasm a potassium [moles/volum e] in serum or plasma 2.8 mmol/ L low: 3.4mmo l/Lhig h: 5.1mmo l/L low POTAS SIUM 2.8 (L) 3.4 - 5.1 mmol/ L 06/14 10:43 AM [facility] Not Available Not Available 09/23/2024 09:51:52 06/14/20 24 06/14/2024 Compr ehens miguel ángel metab olic 1999 panel - Serum or Plasm a chloride 98 mmol/ L low: 98mmol /Lhigh : 107mmo l/L CHLOR LAURA 98 98 - 107 mmol/ L 06/14 10:43 AM [facility] Not Available Not Available 09/23/2024 09:51:52 06/14/20 24 06/14/2024 Compr ehens miguel ángel metab olic 1999 panel - Serum or Plasm a carbon dioxide, total [moles/volum e] in serum or plasma 20 mmol/ L low: 22mmol /Lhigh : 29mmol /L low CO2 20 (L) 22 - 29 mmol/ L 06/14 10:[address] [facility] Not Available Not Available 09/23/2024 09:51:52 06/14/20 24 06/14/2024 Compr ehens miguel ángel metab olic 1999 panel - Serum or Plasm a calcium 8.1 mg/dL low: 8.6mg/ dLhigh : 10.4mg /dL low CALCI UM 8.1 (L) 8.6 - 10.4 mg/dL 06/14 10:43 AM [employer] [facility] Not Available Not Available 09/23/2024 09:51:52 06/14/20 24 06/14/2024 Compr ehens miguel ángel metab olic 1999 panel - Serum or Plasm a BUN 8 mg/dL low: 6mg/dL high: 20mg/d L BUN 8 6 - 20 mg/dL 06/14 10:43 AM [employer] [facility] Not Available Not Available 09/23/2024 09:51:52 06/14/20 24 06/14/2024 Compr ehens miguel ángel metab olic 1999 panel - Serum or Plasm a creatinine [mass/volume ] in serum or plasma 0.8 mg/dL low: 0.51mg /dLhig h: 0.95mg /dL CREAT ININE 0.80 0.51 - 0.95 mg/dL 06/14 10:43 AM [employer] [facility] Not Available Not Available 09/23/2024 09:51:52 06/14/20 24 06/14/2024 Compr ehens miguel ángel metab olic 1999 panel - Serum or Plasm a glucose [mass/volume ] in serum or plasma 96 mg/dL low: 74mg/d Lhigh: 99mg/d L GLUCO SE 96 74 - 99 mg/dL 06/14 10:43 AM [employer] [facility] Not Available Not Available 09/23/2024 09:51:52 06/14/20 24 06/14/2024 Compr ehens miguel ángel metab olic 1999 panel - Serum or Plasm a total protein 8 g/dL low: 6.3g/d Lhigh: 8.7g/d L TOTAL PROTE IN 8.0 6.3 - 8.7 g/dL 06/14 10:43 AM [employer] [facility] Not Available Not Available 09/23/2024 09:51:52 06/14/20 24 06/14/2024 Compr ehens miguel ángel metab olic 2000 panel - Serum or Plasm a albumin 2.1 g/dL low: 3.5g/d Lhigh: 5.2g/d L low ALBUM IN 2.1 (L) 3.5 - 5.2 g/dL 06/14 10:43 AM [employer] [facility] Not Available Not Available 09/23/2024 09:51:52 06/14/20 24 06/14/2024 Compr ehens miguel ángel metab olic 1999 panel - Serum or Plasm a bilirubin total 0.5 mg/dL low: 0.3mg/ dLhigh : 1.2mg/ dL BILIR UBIN TOTAL 0.5 0.3 - 1.2 mg/dL 06/14 10:43 AM [employer] [facility] Not Available Not Available 09/23/2024 09:51:52 06/14/20 24 06/14/2024 Compr ehens miguel ángel metab olic 1999 panel - Serum or Plasm a alkaline phosphatase 126 U/L low: 40U/Lh igh: 150U/L ALKAL INE PHOSP HATAS E 126 40 - 150 U/L 06/14 10:43 AM [employer] [facility] Not Available Not Available 09/23/2024 09:51:52 06/14/20 24 06/14/2024 Compr ehens miguel ángel metab olic 1999 panel - Serum or Plasm a AST 17 U/L low: 0U/Lhi gh: 33U/L AST 17 0 - 33 U/L 06/14 10:43 AM [facility] Not Available Not Available 09/23/2024 09:51:52 06/14/20 24 06/14/2024 Compr ehens miguel ángel metab olic 1999 panel - Serum or Plasm a alanine aminotransfe rase [enzymatic activity/vol ume] in blood 5 U/L low: 0U/Lhi gh: 33U/L ALT 5 0 - 33 U/L 06/14 10:43 AM [facility] Not Available Not Available 09/23/2024 09:51:52 06/14/20 24 06/14/2024 Compr ehens miguel ángel metab olic 1999 panel - Serum or Plasm a glomerular filtration rate/1.73 sq M.predicted [volume rate/area] in serum, plasma or blood by creatinine-b ased formula (CKD-epi 2020) text: >=60 mL/min /1.73 sq meter GFR >60 >=60 mL/mi n/1.7 3 sq meter 06/14 10:43 AM [employer] [facility] Not Available Not Available 09/23/2024 09:51:52 06/14/20 24 06/14/2024 Compr ehens miguel ángel metab olic 2000 panel - Serum or Plasm a anion gap 13 mmol/ L low: 8mmol/ Lhigh: 16mmol /L ANION GAP 13 8 - 16 mmol/ L 06/14 10:43 AM [employer] [facility] Not Available Not Available 09/23/2024 09:51:52 06/14/20 24 06/14/2024 Compr ehens miguel ángel metab olic 2000 panel - Serum or Plasm a interpretati on and review of laboratory results Abnorm al Not Available Not Available 09:51:52 06/14/20 24 06/14/2024 CBC W Auto Diffe renti al panel - Blood leukocytes [#/volume] in blood 12.2 K/uL low: 4K/uLh igh: 9.8K/u L high WBC 12.2 (H) 4.0 - 9.8 K/uL 06/14 10:44 AM [employer] [facility] Not Available Not Available 09/23/2024 09:51:52 06/14/20 24 06/14/2024 CBC W Auto Diffe renti al panel - Blood RBC 2.79 text: 3.90 - 4.90 M/uL low RBC 2.79 (L) 3.90 - 4.90 M/uL 06/14 10:44 AM [employer] [facility] Not Available Not Available 09/23/2024 09:51:52 06/14/20 24 06/14/2024 CBC W Auto Diffe renti al panel - Blood hemoglobin 8 g/dL low: 11.8g/ dLhigh : 14.8g/ dL low HEMOG LOBIN 8.0 (L) 11.8 - 14.8 g/dL 06/14 10:44 AM [employer] [facility] [facility] Not Available Not Available 09/23/2024 09:51:52 06/14/20 24 06/14/2024 CBC W Auto Diffe renti al panel - Blood hematocrit [volume fraction] of blood by automated count 25.5 % low: 35.5%h igh: 44% low HEMAT OCRIT 25.5 (L) 35.5 - 44.0 % 06/14 10:44 AM [employer] [facility] Not Available Not Available 09/23/2024 09:51:52 06/14/20 24 06/14/2024 CBC W Auto Diffe renti al panel - Blood MCV 91.4 fL low: 82fLhi gh: 99fL MCV 91.4 82.0 - 99.0 fL 06/14 10:44 AM [employer] [facility] Not Available Not Available 09/23/2024 09:51:52 06/14/20 24 06/14/2024 CBC W Auto Diffe renti al panel - Blood MCH 28.7 pg low: 27.2pg high: 32.6pg MCH 28.7 27.2 - 32.6 pg 06/14 10:44 AM [employer] [facility] Not Available Not Available 09/23/2024 09:51:52 06/14/20 24 06/14/2024 CBC W Auto Diffe renti al panel - Blood MCHC 31.4 g/dL low: 31.5g/ dLhigh : 35.5g/ dL low MCHC 31.4 (L) 31.5 - 35.5 g/dL 06/14 10:44 AM [employer] [facility] Not Available Not Available 09/23/2024 09:51:52 06/14/2006/14/2024 CBC W Auto Diffe renti al panel - Blood RDW 14.4 % low: 11.5%h igh: 14.5% RDW 14.4 11.5 - 14.5 % 06/14 10:44 AM [employer] [facility] Not Available Not Available 09/23/2024 09:51:52 06/14/20 24 06/14/2024 CBC W Auto Diffe renti al panel - Blood RDW-stdev 48.8 fL low: 37.1fL high: 48.7fL high RDW-S TDEV 48.8 (H) 37.1 - 48.7 fL 06/14 10:44 AM [facility] Not Available Not Available 09/23/2024 09:51:52 06/14/20 24 06/14/2024 CBC W Auto Diffe renti al panel - Blood platelets [#/volume] in blood by automated count 311 K/uL low: 140K/u Lhigh: 350K/u L PLATE LETS 311 140 - 350 K/uL 06/14 10:44 AM [employer] [facility] Not Available Not Available 09/23/2024 09:51:52 06/14/20 24 06/14/2024 CBC W Auto Diffe renti al panel - Blood MPV 9.5 fL low: 9.3fLh igh: 12.4fL MPV 9.5 9.3 - 12.4 fL 06/14 10:44 AM [employer] [facility] Not Available Not Available 09/23/2024 09:51:52 06/14/20 24 06/14/2024 CBC W Auto Diffe renti al panel - Blood neutrophils 79 % NEUTR OPHIL S 79 % 06/14 10:44 AM [employer] [facility] Not Available Not Available 09/23/2024 09:51:52 06/14/20 24 06/14/2024 CBC W Auto Diffe renti al panel - Blood lymphocytes/ 100 leukocytes in blood by automated count 10 % LYMPH OCYTE S 10 % 06/14 10:44 AM [employer] [facility] Not Available Not Available 09/23/2024 09:51:52 06/14/20 24 06/14/2024 CBC W Auto Diffe renti al panel - Blood monocytes 8 % MONOC YTES 8 % 06/14 10:44 AM [employer] [facility] Not Available Not Available 09/23/2024 09:51:52 06/14/20 24 06/14/2024 CBC W Auto Diffe renti al panel - Blood eosinophils 1 % EOSIN OPHIL S 1 % 06/14 10:44 AM [facility] Not Available Not Available 09/23/2024 09:51:52 06/14/20 24 06/14/2024 CBC W Auto Diffe renti al panel - Blood basophils 1 % BASOP HILS 1 % 06/14 10:44 AM [facility] Not Available Not Available 09/23/2024 09:51:52 06/14/20 24 06/14/2024 CBC W Auto Diffe renti al panel - Blood immature granulocytes 1 % IMMAT URE GRANU LOCYT ES 1 % 06/14 10:44 AM [facility] Not Available Not Available 09/23/2024 09:51:52 06/14/20 24 06/14/2024 CBC W Auto Diffe renti al panel - Blood neutrophils [#/volume] in blood by automated count 9.7 K/uL low: 1.9K/u Lhigh: 7K/uL high NEUTR OPHIL ABSOL NINILCHIK 9.70 (H) 1.90 - 7.00 K/uL 06/14 10:44 AM [facility] Not Available Not Available 09/23/2024 09:51:52 06/14/20 24 06/14/2024 CBC W Auto Diffe renti al panel - Blood lymphocyte absolute 1.26 K/uL low: 0.7K/u Lhigh: 4.5K/u L LYMPH OCYTE ABSOL NINILCHIK 1.26 0.70 - 4.50 K/uL 06/14 10:44 AM [facility] Not Available Not Available 09/23/2024 09:51:52 06/14/20 24 06/14/2024 CBC W Auto Diffe renti al panel - Blood monocyte absolute 1.03 K/uL low: 0.1K/u Lhigh: 1.3K/u L MONOC YTE ABSOL NINILCHIK 1.03 0.10 - 1.30 K/uL 06/14 10:44 AM [employer] [facility] Not Available Not Available 09/23/2024 09:51:52 06/14/20 24 06/14/2024 CBC W Auto Diffe renti al panel - Blood eosinophil absolute 0.11 K/uL low: 0K/uLh igh: 0.7K/u L EOSIN OPHIL ABSOL NINILCHIK 0.11 0.00 - 0.70 K/uL 06/14 10:44 AM [facility] Not Available Not Available 09/23/2024 09:51:52 06/14/20 24 06/14/2024 CBC W Auto Diffe renti al panel - Blood basophils absolute 0.06 K/uL low: 0K/uLh igh: 0.2K/u L BASOP HILS ABSOL NINILCHIK 0.06 0.00 - 0.20 K/uL 06/14 10:44 AM [facility] Not Available Not Available 09/23/2024 09:51:52 06/14/20 24 06/14/2024 CBC W Auto Diffe renti al panel - Blood immature granulocytes absolute 0.08 K/uL low: 0K/uLh igh: 0.03K/ uL high IMMAT URE GRANU LOCYT ES ABSOL NINILCHIK 0.08 (H) 0.00 - 0.03 K/uL 06/14 10:44 AM [facility] Not Available Not Available 09/23/2024 09:51:52 06/14/20 24 06/14/2024 CBC W Auto Diffe renti al panel - Blood interpretati on and review of laboratory results Abnorm al Not Available Not Available 09:51:52 06/14/20 24 06/19/2024 Bacte honey ident ified in Blood by Cultu re bacteria identified in specimen by culture No growth BLOOD CULTU RE No growt h 06/19 3:28 PM [facility] Not Available Not Available 09/23/2024 09:51:52 06/14/20 24 06/19/2024 Bacte honey ident ified in Blood by Cultu re Unknown Analyte Specim en proces sed with subopt imal blood volume collec juvencio. Speci men proce ssed with subop timal blood volum e colle cted. Not Available Not Available 09/23/2024 09:51:52 06/14/20 24 06/19/2024 Bacte honey ident ified in Blood by Cultu re interpretati on and review of laboratory results Normal Not Available Not Available 09/04 09:51:52 06/14/20 24 06/19/2024 Bacte honey ident ified in Blood by Cultu re bacteria identified in specimen by culture No growth BLOOD CULTU RE No growt h 06/19 3:28 PM [employer] [facility] Not Available Not Available 09/23/2024 09:51:52 06/14/20 24 06/19/2024 Bacte honey ident ified in Blood by Cultu re Unknown Analyte Specim en proces sed with subopt imal blood volume collec juvencio. Speci men proce ssed with subop timal blood volum e colle cted. Not Available Not Available 09/23/2024 09:51:52 06/14/20 24 06/19/2024 Bacte honey ident ified in Blood by Cultu re interpretati on and review of laboratory results Normal Not Available Not Available 09/04 09:51:52 06/14/20 24 06/16/2024 Bacte honey ident ified in Wound by Aerob e cultu re bacteria identified in specimen by culture Scant growth Strept ococcu s group B abnormal CULTU RE Scant growt h Strep tococ cus group B (A) ALEN MCG/M L 06/16 12:11 PM [employer] [facility] Not Available Not Available 09/23/2024 09:51:52 06/14/20 24 06/16/2024 Bacte honey ident ified in Wound by Aerob e cultu re bacteria identified in specimen by culture 2+ or modera te Normal skin marisa CULTU RE 2+ or moder ate Mary l skin marisa ALEN MCG/M L 06/16 12:11 PM [facility] Not Available Not Available 09/23/2024 09:51:52 06/14/20 24 06/16/2024 Bacte honey ident ified in Wound by Aerob e cultu re microscopic observation [identifier] in specimen by gram stain 2+ (Few) Gram negati ve rods GRAM STAIN 2+ (Few) Gram negat miguel ángel rods 06/16 12:11 PM [facility] Not Available Not Available 09/23/2024 09:51:52 06/14/20 24 06/16/2024 Bacte honey ident ified in Wound by Aerob e cultu re microscopic observation [identifier] in specimen by gram stain 1+ (Rare or Occasi onal) Gram positi ve cocci GRAM STAIN 1+ (Rare or Occas ional ) Gram posit miguel ángel cocci 06/16 12:11 PM [facility] Not Available Not Available 09/23/2024 09:51:52 06/14/20 24 06/16/2024 Bacte honey ident ified in Wound by Aerob e cultu re microscopic observation [identifier] in specimen by gram stain 1+ (Rare or Occasi onal) Gram positi ve rods GRAM STAIN 1+ (Rare or Occas ional ) Gram posit miguel ángel rods 06/16 12:11 PM [facility] Not Available Not Available 09/23/2024 09:51:52 06/14/20 24 06/16/2024 Bacte honey ident ified in Wound by Aerob e cultu re microscopic observation [identifier] in specimen by gram stain 2+ (Few) Polymo rphonu clear WBC GRAM STAIN 2+ (Few) Polym orpho nucle ar WBC 06/16 12:11 PM [facility] Not Available Not Available 09/23/2024 09:51:52 06/14/20 24 06/16/2024 Bacte honey ident ified in Wound by Aerob e cultu re interpretati on and review of laboratory results Abnorm al Not Available Not Available 09:51:52 06/15/20 24 06/15/2024 CBC W Auto Diffe renti al panel - Blood leukocytes [#/volume] in blood 10.5 K/uL low: 4K/uLh igh: 9.8K/u L high WBC 10.5 (H) 4.0 - 9.8 K/uL 06/15 7:56 AM [employer] [facility] Not Available Not Available 09/23/2024 09:51:52 06/15/20 24 06/15/2024 CBC W Auto Diffe renangelica al panel - Blood RBC 2.17 text: 3.90 - 4.90 M/uL low RBC 2.17 (L) 3.90 - 4.90 M/uL 06/15 7:56 AM [facility] Not Available Not Available 09/23/2024 09:51:52 06/15/20 24 06/15/2024 CBC W Auto Diffe fabiola al panel - Blood hemoglobin 6.3 g/dL low: 11.8g/ dLhigh : 14.8g/ dL critical low HEMOG LOBIN 6.3 (LL) 11.8 - 14.8 g/dL 06/15 7:56 AM [employer] [facility] Not Available Not Available 09/23/2024 09:51:52 06/15/20 24 06/15/2024 CBC W Auto Diffe fabiola al panel - Blood hematocrit [volume fraction] of blood by automated count 20.1 % low: 35.5%h igh: 44% low HEMAT OCRIT 20.1 (L) 35.5 - 44.0 % 06/15 7:56 AM [employer] [facility] Not Available Not Available 09/23/2024 09:51:52 06/15/20 24 06/15/2024 CBC W Auto Diffe renti al panel - Blood MCV 92.6 fL low: 82fLhi gh: 99fL MCV 92.6 82.0 - 99.0 fL 06/15 7:56 AM [employer] [facility] Not Available Not Available 09/23/2024 09:51:52 06/15/20 24 06/15/2024 CBC W Auto Diffe renti al panel - Blood MCH 29 pg low: 27.2pg high: 32.6pg MCH 29.0 27.2 - 32.6 pg 06/15 7:56 AM [employer] [facility] Not Available Not Available 09/23/2024 09:51:52 06/15/20 24 06/15/2024 CBC W Auto Diffe renti al panel - Blood MCHC 31.3 g/dL low: 31.5g/ dLhigh : 35.5g/ dL low MCHC 31.3 (L) 31.5 - 35.5 g/dL 06/15 7:56 AM [employer] [facility] Not Available Not Available 09/23/2024 09:51:52 06/15/20 24 06/15/2024 CBC W Auto Diffe renti al panel - Blood RDW 14.6 % low: 11.5%h igh: 14.5% high RDW 14.6 (H) 11.5 - 14.5 % 06/15 7:56 AM [employer] [facility] Not Available Not Available 09/23/2024 09:51:52 06/15/20 24 06/15/2024 CBC W Auto Diffe renti al panel - Blood RDW-stdev 49.4 fL low: 37.1fL high: 48.7fL high RDW-S TDEV 49.4 (H) 37.1 - 48.7 fL 06/15 7:56 AM [employer] [facility] Not Available Not Available 09/23/2024 09:51:52 06/15/20 24 06/15/2024 CBC W Auto Diffe renti al panel - Blood platelets [#/volume] in blood by automated count 313 K/uL low: 140K/u Lhigh: 350K/u L PLATE LETS 313 140 - 350 K/uL 06/15 7:56 AM [employer] [facility] Not Available Not Available 09/23/2024 09:51:52 12/11/20 24 06/15/2024 CBC W Auto Diffe renti al panel - Blood MPV 9.3 fL low: 9.3fLh igh: 12.4fL MPV 9.3 9.3 - 12.4 fL 06/15 7:56 AM [employer] [facility] Not Available Not Available 09/23/2024 09:51:52 06/15/20 24 06/15/2024 CBC W Auto Diffe renti al panel - Blood neutrophils 66 % NEUTR OPHIL S 66 % 06/15 7:56 AM [employer] [facility] Not Available Not Available 09/23/2024 09:51:52 06/15/20 24 06/15/2024 CBC W Auto Diffe renti al panel - Blood lymphocytes/ 100 leukocytes in blood by automated count 19 % LYMPH OCYTE S 19 % 06/15 7:56 AM [employer] [facility] Not Available 09/23/2024 09:51:52 06/15/20 24 06/15/2024 CBC W Auto Diffe renti al panel - Blood monocytes 11 % MONOC YTES 11 % 06/15 7:56 AM [employer] [facility] Not Available Not Available 09/23/2024 09:51:52 06/15/20 24 06/15/2024 CBC W Auto Diffe renti al panel - Blood eosinophils 3 % EOSIN OPHIL S 3 % 06/15 7:56 AM [facility] Not Available Not Available 09/23/2024 09:51:52 06/15/20 24 06/15/2024 CBC W Auto Diffe renti al panel - Blood basophils 1 % BASOP HILS 1 % 06/15 7:56 AM [employer] [facility] Not Available Not Available 09/23/2024 09:51:52 06/15/20 24 06/15/2024 CBC W Auto Diffe renti al panel - Blood immature granulocytes 1 % IMMAT URE GRANU LOCYT ES 1 % 06/15 7:56 AM [employer] [place] [facility] Not Available Not Available 09/23/2024 09:51:52 06/15/20 24 06/15/2024 CBC W Auto Diffe renti al panel - Blood neutrophils [#/volume] in blood by automated count 6.91 K/uL low: 1.9K/u Lhigh: 7K/uL NEUTR OPHIL ABSOL NINILCHIK 6.91 1.90 - 7.00 K/uL 06/15 7:56 AM [facility] [employer] [facility] Not Available Not Available 09/23/2024 09:51:52 06/15/20 24 06/15/2024 CBC W Auto Diffe renti al panel - Blood lymphocyte absolute 1.99 K/uL low: 0.7K/u Lhigh: 4.5K/u L LYMPH OCYTE ABSOL NINILCHIK 1.99 0.70 - 4.50 K/uL 06/15 7:56 AM [facility] Not Available Not Available 09/23/2024 09:51:52 06/15/20 24 06/15/2024 CBC W Auto Diffe renti al panel - Blood monocyte absolute 1.13 K/uL low: 0.1K/u Lhigh: 1.3K/u L MONOC YTE ABSOL NINILCHIK 1.13 0.10 - 1.30 K/uL 06/15 7:56 AM [facility] [employer] [facility] Not Available Not Available 09/23/2024 09:51:52 06/15/20 24 06/15/2024 CBC W Auto Diffe renti al panel - Blood eosinophil absolute 0.32 K/uL low: 0K/uLh igh: 0.7K/u L EOSIN OPHIL ABSOL NINILCHIK 0.32 0.00 - 0.70 K/uL 06/15 7:56 AM [facility] [employer] [facility] Not Available Not Available 09/23/2024 09:51:52 06/15/20 24 06/15/2024 CBC W Auto Diffe renti al panel - Blood basophils absolute 0.07 K/uL low: 0K/uLh igh: 0.2K/u L BASOP HILS ABSOL NINILCHIK 0.07 0.00 - 0.20 K/uL 06/15 7:56 AM [employer] [facility] Not Available Not Available 09/23/2024 09:51:52 06/15/20 24 06/15/2024 CBC W Auto Diffe renti al panel - Blood immature granulocytes absolute 0.06 K/uL low: 0K/uLh igh: 0.03K/ uL high IMMAT URE GRANU LOCYT ES ABSOL NINILCHIK 0.06 (H) 0.00 - 0.03 K/uL 06/15 7:56 AM [employer] [facility] Not Available Not Available 09/23/2024 09:51:52 06/15/20 24 06/15/2024 CBC W Auto Diffe renti al panel - Blood interpretati on and review of laboratory results Abnorm al Not Available Not Available 09:51:52 06/15/20 24 06/15/2024 Basic metab olic 1999 panel - Serum or Plasm a sodium [moles/volum e] in serum or plasma 133 mmol/ L low: 136mmo l/Lhig h: 145mmo l/L low SODIU M 133 (L) 136 - 145 mmol/ L 06/15 3:34 AM [employer] [facility] Not Available Not Available 09/23/2024 09:51:52 06/15/20 24 06/15/2024 Basic metab olic 1999 panel - Serum or Plasm a potassium [moles/volum e] in serum or plasma 3.1 mmol/ L low: 3.4mmo l/Lhig h: 5.1mmo l/L low POTAS SIUM 3.1 (L) 3.4 - 5.1 mmol/ L 06/15 3:34 AM [employer] [facility] Not Available Not Available 09/23/2024 09:51:52 06/15/20 24 06/15/2024 Basic metab olic 1999 panel - Serum or Plasm a chloride 103 mmol/ L low: 98mmol /Lhigh : 107mmo l/L CHLOR LAURA 103 98 - 107 mmol/ L 06/15 3:34 AM [employer] [facility] Not Available Not Available 09/23/2024 09:51:52 06/15/20 24 06/15/2024 Basic metab olic 1999 panel - Serum or Plasm a carbon dioxide, total [moles/volum e] in serum or plasma 21 mmol/ L low: 22mmol /Lhigh : 29mmol /L low CO2 21 (L) 22 - 29 mmol/ L 06/15 3:34 AM [employer] [facility] Not Available Not Available 09/23/2024 09:51:52 06/15/20 24 06/15/2024 Basic metab olic 1999 panel - Serum or Plasm a calcium 8.1 mg/dL low: 8.6mg/ dLhigh : 10.4mg /dL low CALCI UM 8.1 (L) 8.6 - 10.4 mg/dL 06/15 3:34 AM [employer] [facility] Not Available Not Available 09/23/2024 09:51:52 06/15/20 24 06/15/2024 Basic metab olic 1999 panel - Serum or Plasm a BUN 5 mg/dL low: 6mg/dL high: 20mg/d L low BUN 5 (L) 6 - 20 mg/dL 06/15 3:34 AM [employer] [facility] Not Available Not Available 09/23/2024 09:51:52 06/15/20 24 06/15/2024 Basic metab olic 1999 panel - Serum or Plasm a creatinine [mass/volume ] in serum or plasma 0.82 mg/dL low: 0.51mg /dLhig h: 0.95mg /dL CREAT ININE 0.82 0.51 - 0.95 mg/dL 06/15 3:34 AM [employer] [facility] Not Available Not Available 09/23/2024 09:51:52 06/15/20 24 06/15/2024 Basic metab olic 1999 panel - Serum or Plasm a glucose [mass/volume ] in serum or plasma 123 mg/dL low: 74mg/d Lhigh: 99mg/d L high GLUCO SE 123 (H) 74 - 99 mg/dL 06/15 3:34 AM [employer] [facility] Not Available Not Available 09/23/2024 09:51:52 06/15/20 24 06/15/2024 Basic metab olic 1999 panel - Serum or Plasm a glomerular filtration rate/1.73 sq M.predicted [volume rate/area] in serum, plasma or blood by creatinine-b ased formula (CKD-epi 2020) text: >=60 mL/min /1.73 sq meter GFR >60 >=60 mL/mi n/1.7 3 sq meter 06/15 3:34 AM [employer] [facility] Not Available Not Available 09/23/2024 09:51:52 06/15/20 24 06/15/2024 Basic metab olic 1999 panel - Serum or Plasm a anion gap 9 mmol/ L low: 8mmol/ Lhigh: 16mmol /L ANION GAP 9 8 - 16 mmol/ L 06/15 3:34 AM [facility] Not Available Not Available 09/23/2024 09:51:52 06/15/20 24 06/15/2024 Basic metab olic 1999 panel - Serum or Plasm a interpretati on and review of laboratory results Abnorm al Not Available Not Available 09:51:52 06/16/20 24 06/16/2024 Basic metab olic 1999 panel - Serum or Plasm a sodium [moles/volum e] in serum or plasma 137 mmol/ L low: 136mmo l/Lhig h: 145mmo l/L SODIU M 137 136 - 145 mmol/ L 06/16 6:51 AM [facility] [employer] [facility] Not Available Not Available 09/23/2024 09:51:52 06/16/20 24 06/16/2024 Basic metab olic 1999 panel - Serum or Plasm a potassium [moles/volum e] in serum or plasma 4.5 mmol/ L low: 3.4mmo l/Lhig h: 5.1mmo l/L POTAS SIUM 4.5 3.4 - 5.1 mmol/ L 06/16 6:51 AM [employer] [facility] Not Available Not Available 09/23/2024 09:51:52 06/16/20 24 06/16/2024 Basic metab olic 1999 panel - Serum or Plasm a chloride 108 mmol/ L low: 98mmol /Lhigh : 107mmo l/L high CHLOR LAURA 108 (H) 98 - 107 mmol/ L 06/16 6:51 AM [employer] [facility] Not Available Not Available 09/23/2024 09:51:52 06/16/20 24 06/16/2024 Basic metab olic 1999 panel - Serum or Plasm a carbon dioxide, total [moles/volum e] in serum or plasma 19 mmol/ L low: 22mmol /Lhigh : 29mmol /L low CO2 19 (L) 22 - 29 mmol/ L 06/16 6:51 AM [employer] [facility] Not Available Not Available 09/23/2024 09:51:52 06/16/20 24 06/16/2024 Basic metab olic 1999 panel - Serum or Plasm a calcium 8.6 mg/dL low: 8.6mg/ dLhigh : 10.4mg /dL CALCI UM 8.6 8.6 - 10.4 mg/dL 06/16 6:51 AM [employer] [facility] Not Available Not Available 09/23/2024 09:51:52 06/16/20 24 06/16/2024 Basic metab olic 1999 panel - Serum or Plasm a BUN 5 mg/dL low: 6mg/dL high: 20mg/d L low BUN 5 (L) 6 - 20 mg/dL 06/16 6:51 AM [employer] [facility] Not Available Not Available 09/23/2024 09:51:52 06/16/20 24 06/16/2024 Basic metab olic 2000 panel - Serum or Plasm a creatinine [mass/volume ] in serum or plasma 0.77 mg/dL low: 0.51mg /dLhig h: 0.95mg /dL CREAT ININE 0.77 0.51 - 0.95 mg/dL 06/16 6:51 AM [employer] [facility] Not Available Not Available 09/23/2024 09:51:52 06/16/20 24 06/16/2024 Basic metab olic 2000 panel - Serum or Plasm a glucose [mass/volume ] in serum or plasma 127 mg/dL low: 74mg/d Lhigh: 99mg/d L high GLUCO SE 127 (H) 74 - 99 mg/dL 06/16 6:51 AM [employer] [facility] Not Available Not Available 09/23/2024 09:51:52 06/16/2006/16/2024 Basic metab olic 2000 panel - Serum or Plasm a glomerular filtration rate/1.73 sq M.predicted [volume rate/area] in serum, plasma or blood by creatinine-b ased formula (CKD-epi 2020) text: >=60 mL/min /1.73 sq meter GFR >60 >=60 mL/mi n/1.7 3 sq meter 06/16 6:51 AM [employer] [facility] Not Available Not Available 09/23/2024 09:51:52 06/16/2006/16/2024 Basic metab olic 2000 panel - Serum or Plasm a anion gap 10 mmol/ L low: 8mmol/ Lhigh: 16mmol /L ANION GAP 10 8 - 16 mmol/ L 06/16 6:51 AM [employer] [facility] Not Available Not Available 09/23/2024 09:51:52 06/16/2006/16/2024 Basic metab olic 2000 panel - Serum or Plasm a interpretati on and review of laboratory results Abnorm al Not Available Not Available 09:51:52 06/16/2006/16/2024 CBC W Auto Diffe renti al panel - Blood leukocytes [#/volume] in blood 9.8 K/uL low: 4K/uLh igh: 9.8K/u L WBC 9.8 4.0 - 9.8 K/uL 06/16 6:32 AM [facility] Not Available Not Available 09/23/2024 09:51:52 06/16/20 24 06/16/2024 CBC W Auto Diffe renti al panel - Blood RBC 2.76 text: 3.90 - 4.90 M/uL low RBC 2.76 (L) 3.90 - 4.90 M/uL 06/16 6:32 AM [employer] [facility] Not Available Not Available 09/23/2024 09:51:52 06/16/20 24 06/16/2024 CBC W Auto Diffe renti al panel - Blood hemoglobin 8 g/dL low: 11.8g/ dLhigh : 14.8g/ dL low HEMOG LOBIN 8.0 (L) 11.8 - 14.8 g/dL 06/16 6:32 AM [employer] [facility] Not Available Not Available 09/23/2024 09:51:52 06/16/20 24 06/16/2024 CBC W Auto Diffe renti al panel - Blood hematocrit [volume fraction] of blood by automated count 25.2 % low: 35.5%h igh: 44% low HEMAT OCRIT 25.2 (L) 35.5 - 44.0 % 06/16 6:32 AM [employer] [facility] Not Available Not Available 09/23/2024 09:51:52 06/16/20 24 06/16/2024 CBC W Auto Diffe renti al panel - Blood MCV 91.3 fL low: 82fLhi gh: 99fL MCV 91.3 82.0 - 99.0 fL 06/16 6:32 AM [employer] [facility] Not Available Not Available 09/23/2024 09:51:52 06/16/20 24 06/16/2024 CBC W Auto Diffe renti al panel - Blood MCH 29 pg low: 27.2pg high: 32.6pg MCH 29.0 27.2 - 32.6 pg 06/16 6:32 AM [employer] [facility] Not Available Not Available 09/23/2024 09:51:52 06/16/20 24 06/16/2024 CBC W Auto Diffe renti al panel - Blood MCHC 31.7 g/dL low: 31.5g/ dLhigh : 35.5g/ dL MCHC 31.7 31.5 - 35.5 g/dL 06/16 6:32 AM [employer] [facility] Not Available Not Available 09/23/2024 09:51:52 06/16/20 24 06/16/2024 CBC W Auto Diffe renti al panel - Blood RDW 14.6 % low: 11.5%h igh: 14.5% high RDW 14.6 (H) 11.5 - 14.5 % 06/16 6:32 AM [employer] [facility] Not Available Not Available 09/23/2024 09:51:52 06/16/20 24 06/16/2024 CBC W Auto Diffe renti al panel - Blood RDW-stdev 48.8 fL low: 37.1fL high: 48.7fL high RDW-S TDEV 48.8 (H) 37.1 - 48.7 fL 06/16 6:32 AM [employer] [facility] Not Available Not Available 09/23/2024 09:51:52 06/16/20 24 06/16/2024 CBC W Auto Diffe renti al panel - Blood platelets [#/volume] in blood by automated count 359 K/uL low: 140K/u Lhigh: 350K/u L high PLATE LETS 359 (H) 140 - 350 K/uL 06/16 6:32 AM [employer] [facility] Not Available Not Available 09/23/2024 09:51:52 06/16/20 24 06/16/2024 CBC W Auto Diffe renti al panel - Blood MPV 9.3 fL low: 9.3fLh igh: 12.4fL MPV 9.3 9.3 - 12.4 fL 06/16 6:32 AM [employer] [facility] Not Available Not Available 09/23/2024 09:51:52 06/16/20 24 06/16/2024 CBC W Auto Diffe renti al panel - Blood neutrophils 81 % NEUTR OPHIL S 81 % 06/16 6:32 AM [employer] [facility] Not Available Not Available 09/23/2024 09:51:52 06/16/20 24 06/16/2024 CBC W Auto Diffe renti al panel - Blood lymphocytes/ 100 leukocytes in blood by automated count 15 % LYMPH OCYTE S 15 % 06/16 6:32 AM [employer] [facility] Not Available Not Available 09/23/2024 09:51:52 06/16/20 24 06/16/2024 CBC W Auto Diffe renti al panel - Blood monocytes 3 % MONOC YTES 3 % 06/16 6:32 AM [employer] [facility] Not Available Not Available 09/23/2024 09:51:52 06/16/20 24 06/16/2024 CBC W Auto Diffe renti al panel - Blood eosinophils 0 % EOSIN OPHIL S 0 % 06/16 6:32 AM [employer] [facility] Not Available Not Available 09/23/2024 09:51:52 06/16/20 24 06/16/2024 CBC W Auto Diffe renti al panel - Blood basophils 0 % BASOP HILS 0 % 06/16 6:32 AM [employer] [facility] Not Available Not Available 09/23/2024 09:51:52 06/16/20 24 06/16/2024 CBC W Auto Diffe renti al panel - Blood immature granulocytes 1 % IMMAT URE GRANU LOCYT ES 1 % 06/16 6:32 AM [employer] [facility] Not Available Not Available 09/23/2024 09:51:52 06/16/20 24 06/16/2024 CBC W Auto Diffe renti al panel - Blood neutrophils [#/volume] in blood by automated count 7.94 K/uL low: 1.9K/u Lhigh: 7K/uL high NEUTR OPHIL ABSOL NINILCHIK 7.94 (H) 1.90 - 7.00 K/uL 06/16 6:32 AM [employer] [facility] Not Available Not Available 09/23/2024 09:51:52 06/16/20 24 06/16/2024 CBC W Auto Diffe renti al panel - Blood lymphocyte absolute 1.51 K/uL low: 0.7K/u Lhigh: 4.5K/u L LYMPH OCYTE ABSOL NINILCHIK 1.51 0.70 - 4.50 K/uL 06/16 6:32 AM [employer] [facility] Not Available Not Available 09/23/2024 09:51:52 06/16/20 24 06/16/2024 CBC W Auto Diffe renti al panel - Blood monocyte absolute 0.26 K/uL low: 0.1K/u Lhigh: 1.3K/u L MONOC YTE ABSOL NINILCHIK 0.26 0.10 - 1.30 K/uL 06/16 6:32 AM [employer] [facility] Not Available Not Available 09/23/2024 09:51:52 06/16/20 24 06/16/2024 CBC W Auto Diffe renti al panel - Blood eosinophil absolute 0 K/uL low: 0K/uLh igh: 0.7K/u L EOSIN OPHIL ABSOL NINILCHIK 0.00 0.00 - 0.70 K/uL 06/16 6:32 AM [employer] [facility] Not Available Not Available 09/23/2024 09:51:52 06/16/20 24 06/16/2024 CBC W Auto Diffe renti al panel - Blood basophils absolute 0.01 K/uL low: 0K/uLh igh: 0.2K/u L BASOP HILS ABSOL NINILCHIK 0.01 0.00 - 0.20 K/uL 06/16 6:32 AM [employer] [facility] Not Available Not Available 09/23/2024 09:51:52 06/16/20 24 06/16/2024 CBC W Auto Diffe renti al panel - Blood immature granulocytes absolute 0.09 K/uL low: 0K/uLh igh: 0.03K/ uL high IMMAT URE GRANU LOCYT ES ABSOL NINILCHIK 0.09 (H) 0.00 - 0.03 K/uL 06/16 6:32 AM [employer] [facility] Not Available Not Available 09/23/2024 09:51:52 06/16/20 24 06/16/2024 CBC W Auto Diffe renti al panel - Blood interpretati on and review of laboratory results Abnorm al Not Available Not Available 09:51:52 06/17/20 24 06/17/2024 Basic metab olic 1999 panel - Serum or Plasm a sodium [moles/volum e] in serum or plasma 136 mmol/ L low: 136mmo l/Lhig h: 145mmo l/L SODIU M 136 136 - 145 mmol/ L 06/17 7:18 AM [employer] [facility] Not Available Not Available 09/23/2024 09:51:53 06/17/2006/17/2024 Basic metab olic 1999 panel - Serum or Plasm a potassium [moles/volum e] in serum or plasma 3.7 mmol/ L low: 3.4mmo l/Lhig h: 5.1mmo l/L POTAS SIUM 3.7 3.4 - 5.1 mmol/ L 06/17 7:18 AM [employer] [facility] Not Available Not Available 09/23/2024 09:51:53 06/17/20 24 06/17/2024 Basic metab olic 1999 panel - Serum or Plasm a chloride 108 mmol/ L low: 98mmol /Lhigh : 107mmo l/L high CHLOR LAURA 108 (H) 98 - 107 mmol/ L 06/17 7:18 AM [employer] [facility] Not Available Not Available 09/23/2024 09:51:53 06/17/20 24 06/17/2024 Basic metab olic 1999 panel - Serum or Plasm a carbon dioxide, total [moles/volum e] in serum or plasma 21 mmol/ L low: 22mmol /Lhigh : 29mmol /L low CO2 21 (L) 22 - 29 mmol/ L 06/17 7:18 AM [employer] [facility] Not Available Not Available 09/23/2024 09:51:53 06/17/20 24 06/17/2024 Basic metab olic 1999 panel - Serum or Plasm a calcium 8.4 mg/dL low: 8.6mg/ dLhigh : 10.4mg /dL low CALCI UM 8.4 (L) 8.6 - 10.4 mg/dL 06/17 7:18 AM [employer] [facility] Not Available Not Available 09/23/2024 09:51:53 06/17/20 24 06/17/2024 Basic metab olic 1999 panel - Serum or Plasm a BUN 8 mg/dL low: 6mg/dL high: 20mg/d L BUN 8 6 - 20 mg/dL 06/17 7:18 AM [employer] [facility] Not Available Not Available 09/23/2024 09:51:53 06/17/20 24 06/17/2024 Basic metab olic 1999 panel - Serum or Plasm a creatinine [mass/volume ] in serum or plasma 0.61 mg/dL low: 0.51mg /dLhig h: 0.95mg /dL CREAT ININE 0.61 0.51 - 0.95 mg/dL 06/17 7:18 AM [employer] [facility] Not Available Not Available 09/23/2024 09:51:53 06/17/20 24 06/17/2024 Basic metab olic 1999 panel - Serum or Plasm a glucose [mass/volume ] in serum or plasma 107 mg/dL low: 74mg/d Lhigh: 99mg/d L high GLUCO SE 107 (H) 74 - 99 mg/dL 06/17 7:18 AM [employer] [facility] Not Available Not Available 09/23/2024 09:51:53 06/17/20 24 06/17/2024 Basic metab olic 1999 panel - Serum or Plasm a glomerular filtration rate/1.73 sq M.predicted [volume rate/area] in serum, plasma or blood by creatinine-b ased formula (CKD-epi 2020) text: >=60 mL/min /1.73 sq meter GFR >60 >=60 mL/mi n/1.7 3 sq meter 06/17 7:18 AM [employer] [facility] Not Available Not Available 09/23/2024 09:51:53 06/17/20 24 06/17/2024 Basic metab olic 2000 panel - Serum or Plasm a anion gap 7 mmol/ L low: 8mmol/ Lhigh: 16mmol /L low ANION GAP 7 (L) 8 - 16 mmol/ L 06/17 7:18 AM [employer] [facility] Not Available Not Available 09/23/2024 09:51:53 06/17/2006/17/2024 Basic metab olic 2000 panel - Serum or Plasm a interpretati on and review of laboratory results Abnorm al Not Available Not Available 09:51:53 06/17/20 24 06/17/2024 CBC W Auto Diffe renti al panel - Blood leukocytes [#/volume] in blood 10.7 K/uL low: 4K/uLh igh: 9.8K/u L high WBC 10.7 (H) 4.0 - 9.8 K/uL 06/17 6:50 AM [employer] [facility] Not Available Not Available 09/23/2024 09:51:53 06/17/20 24 06/17/2024 CBC W Auto Diffe renti al panel - Blood RBC 2.57 text: 3.90 - 4.90 M/uL low RBC 2.57 (L) 3.90 - 4.90 M/uL 06/17 6:50 AM [employer] [facility] Not Available Not Available 09/23/2024 09:51:53 06/17/20 24 06/17/2024 CBC W Auto Diffe renti al panel - Blood hemoglobin 7.4 g/dL low: 11.8g/ dLhigh : 14.8g/ dL low HEMOG LOBIN 7.4 (L) 11.8 - 14.8 g/dL 06/17 6:50 AM [facility] Not Available Not Available 09/23/2024 09:51:53 06/17/20 24 06/17/2024 CBC W Auto Diffe renti al panel - Blood hematocrit [volume fraction] of blood by automated count 23.7 % low: 35.5%h igh: 44% low HEMAT OCRIT 23.7 (L) 35.5 - 44.0 % 06/17 6:50 AM [employer] [facility] Not Available Not Available 09/23/2024 09:51:53 06/17/20 24 06/17/2024 CBC W Auto Diffe renti al panel - Blood MCV 92.2 fL low: 82fLhi gh: 99fL MCV 92.2 82.0 - 99.0 fL 06/17 6:50 AM [employer] [facility] Not Available Not Available 09/23/2024 09:51:53 06/17/20 24 06/17/2024 CBC W Auto Diffe renti al panel - Blood MCH 28.8 pg low: 27.2pg high: 32.6pg MCH 28.8 27.2 - 32.6 pg 06/17 6:50 AM [employer] [facility] Not Available Not Available 09/23/2024 09:51:53 06/17/20 24 06/17/2024 CBC W Auto Diffe renti al panel - Blood MCHC 31.2 g/dL low: 31.5g/ dLhigh : 35.5g/ dL low MCHC 31.2 (L) 31.5 - 35.5 g/dL 06/17 6:50 AM [employer] [facility] Not Available Not Available 09/23/2024 09:51:53 06/17/20 24 06/17/2024 CBC W Auto Diffe renti al panel - Blood RDW 14.8 % low: 11.5%h igh: 14.5% high RDW 14.8 (H) 11.5 - 14.5 % 06/17 6:50 AM [employer] [facility] Not Available Not Available 09/23/2024 09:51:53 06/17/20 24 06/17/2024 CBC W Auto Diffe renti al panel - Blood RDW-stdev 50.2 fL low: 37.1fL high: 48.7fL high RDW-S TDEV 50.2 (H) 37.1 - 48.7 fL 06/17 6:50 AM [employer] [facility] Not Available Not Available 09/23/2024 09:51:53 06/17/20 24 06/17/2024 CBC W Auto Diffe renti al panel - Blood platelets [#/volume] in blood by automated count 339 K/uL low: 140K/u Lhigh: 350K/u L PLATE LETS 339 140 - 350 K/uL 06/17 6:50 AM [facility] Not Available Not Available 09/23/2024 09:51:53 06/17/20 24 06/17/2024 CBC W Auto Diffe renti al panel - Blood MPV 9.5 fL low: 9.3fLh igh: 12.4fL MPV 9.5 9.3 - 12.4 fL 06/17 6:50 AM [facility] Not Available Not Available 09/23/2024 09:51:53 06/17/20 24 06/17/2024 CBC W Auto Diffe renti al panel - Blood neutrophils 69 % NEUTR OPHIL S 69 % 06/17 6:50 AM [employer] [facility] Not Available Not Available 09/23/2024 09:51:53 06/17/20 24 06/17/2024 CBC W Auto Diffe renti al panel - Blood lymphocytes/ 100 leukocytes in blood by automated count 23 % LYMPH OCYTE S 23 % 06/17 6:50 AM [facility] Not Available Not Available 09/23/2024 09:51:53 06/17/20 24 06/17/2024 CBC W Auto Diffe renti al panel - Blood monocytes 7 % MONOC YTES 7 % 06/17 6:50 AM [facility] Not Available Not Available 09/23/2024 09:51:53 06/17/20 24 06/17/2024 CBC W Auto Diffe renti al panel - Blood eosinophils 0 % EOSIN OPHIL S 0 % 06/17 6:50 AM [employer] [facility] Not Available Not Available 09/23/2024 09:51:53 06/17/20 24 06/17/2024 CBC W Auto Diffe renti al panel - Blood basophils 0 % BASOP HILS 0 % 06/17 6:50 AM [employer] [facility] Not Available Not Available 09/23/2024 09:51:53 06/17/20 24 06/17/2024 CBC W Auto Diffe renti al panel - Blood immature granulocytes 1 % IMMAT URE GRANU LOCYT ES 1 % 06/17 6:50 AM [facility] Not Available Not Available 09/23/2024 09:51:53 06/17/20 24 06/17/2024 CBC W Auto Diffe renti al panel - Blood neutrophils [#/volume] in blood by automated count 7.36 K/uL low: 1.9K/u Lhigh: 7K/uL high NEUTR OPHIL ABSOL NINILCHIK 7.36 (H) 1.90 - 7.00 K/uL 06/17 6:50 AM [employer] [facility] Not Available Not Available 09/23/2024 09:51:53 06/17/20 24 06/17/2024 CBC W Auto Diffe renti al panel - Blood lymphocyte absolute 2.45 K/uL low: 0.7K/u Lhigh: 4.5K/u L LYMPH OCYTE ABSOL NINILCHIK 2.45 0.70 - 4.50 K/uL 06/17 6:50 AM [employer] [facility] Not Available Not Available 09/23/2024 09:51:53 06/17/20 24 06/17/2024 CBC W Auto Diffe renti al panel - Blood monocyte absolute 0.76 K/uL low: 0.1K/u Lhigh: 1.3K/u L MONOC YTE ABSOL NINILCHIK 0.76 0.10 - 1.30 K/uL 06/17 6:50 AM [employer] [facility] Not Available Not Available 09/23/2024 09:51:53 06/17/20 24 06/17/2024 CBC W Auto Diffe renti al panel - Blood eosinophil absolute 0.01 K/uL low: 0K/uLh igh: 0.7K/u L EOSIN OPHIL ABSOL NINILCHIK 0.01 0.00 - 0.70 K/uL 06/17 6:50 AM [employer] [facility] Not Available Not Available 09/23/2024 09:51:53 06/17/20 24 06/17/2024 CBC W Auto Diffe renti al panel - Blood basophils absolute 0.01 K/uL low: 0K/uLh igh: 0.2K/u L BASOP HILS ABSOL NINILCHIK 0.01 0.00 - 0.20 K/uL 06/17 6:50 AM [facility] Not Available 09/23/2024 09:51:53 06/17/20 24 06/17/2024 CBC W Auto Diffe renti al panel - Blood immature granulocytes absolute 0.12 K/uL low: 0K/uLh igh: 0.03K/ uL high IMMAT URE GRANU LOCYT ES ABSOL NINILCHIK 0.12 (H) 0.00 - 0.03 K/uL 06/17 6:50 AM [facility] Not Available 09/23/2024 09:51:53 06/17/20 24 06/17/2024 CBC W Auto Diffe renti al panel - Blood interpretati on and review of laboratory results Abnorm al Not Available Not Available 09:51:53 06/18/20 24 06/18/2024 CBC W Auto Diffe renti al panel - Blood leukocytes [#/volume] in blood 17.4 K/uL low: 4K/uLh igh: 9.8K/u L high WBC 17.4 (H) 4.0 - 9.8 K/uL 06/18 11:05 AM [employer] [facility] Not Available Not Available 09/23/2024 09:51:53 06/18/20 24 06/18/2024 CBC W Auto Diffe renti al panel - Blood RBC 3.12 text: 3.90 - 4.90 M/uL low RBC 3.12 (L) 3.90 - 4.90 M/uL 06/18 11:05 AM [employer] [facility] Not Available Not Available 09/23/2024 09:51:53 06/18/20 24 06/18/2024 CBC W Auto Diffe renti al panel - Blood hemoglobin 9.2 g/dL low: 11.8g/ dLhigh : 14.8g/ dL low HEMOG LOBIN 9.2 (L) 11.8 - 14.8 g/dL 06/18 11:05 AM [employer] [facility] Not Available Not Available 09/23/2024 09:51:53 06/18/20 24 06/18/2024 CBC W Auto Diffe renti al panel - Blood hematocrit [volume fraction] of blood by automated count 29.3 % low: 35.5%h igh: 44% low HEMAT OCRIT 29.3 (L) 35.5 - 44.0 % 06/18 11:05 AM [employer] [facility] Not Available Not Available 09/23/2024 09:51:53 06/18/20 24 06/18/2024 CBC W Auto Diffe renti al panel - Blood MCV 93.9 fL low: 82fLhi gh: 99fL MCV 93.9 82.0 - 99.0 fL 06/18 11:05 AM [employer] Not Available Not Available 09/23/2024 09:51:53 06/18/20 24 06/18/2024 CBC W Auto Diffe renti al panel - Blood MCH 29.5 pg low: 27.2pg high: 32.6pg MCH 29.5 27.2 - 32.6 pg 06/18 11:05 AM [employer] [facility] Not Available Not Available 09/23/2024 09:51:53 06/18/20 24 06/18/2024 CBC W Auto Diffe renti al panel - Blood MCHC 31.4 g/dL low: 31.5g/ dLhigh : 35.5g/ dL low MCHC 31.4 (L) 31.5 - 35.5 g/dL 06/18 11:05 AM [employer] [facility] Not Available Not Available 09/23/2024 09:51:53 06/18/20 24 06/18/2024 CBC W Auto Diffe renti al panel - Blood RDW 15.1 % low: 11.5%h igh: 14.5% high RDW 15.1 (H) 11.5 - 14.5 % 06/18 11:05 AM [facility] Not Available Not Available 09/23/2024 09:51:53 06/18/20 24 06/18/2024 CBC W Auto Diffe renti al panel - Blood RDW-stdev 51.9 fL low: 37.1fL high: 48.7fL high RDW-S TDEV 51.9 (H) 37.1 - 48.7 fL 06/18 11:05 AM [facility] Not Available Not Available 09/23/2024 09:51:53 06/18/20 24 06/18/2024 CBC W Auto Diffe renti al panel - Blood platelets [#/volume] in blood by automated count 393 K/uL low: 140K/u Lhigh: 350K/u L high PLATE LETS 393 (H) 140 - 350 K/uL 06/18 11:05 AM [facility] Not Available Not Available 09/23/2024 09:51:53 06/18/20 24 06/18/2024 CBC W Auto Diffe renti al panel - Blood MPV 9.3 fL low: 9.3fLh igh: 12.4fL MPV 9.3 9.3 - 12.4 fL 06/18 11:05 AM [facility] Not Available Not Available 09/23/2024 09:51:53 06/18/20 24 06/18/2024 CBC W Auto Diffe renti al panel - Blood neutrophils 67 % NEUTR OPHIL S 67 % 06/18 11:05 AM [employer] [facility] Not Available Not Available 09/23/2024 09:51:53 06/18/20 24 06/18/2024 CBC W Auto Diffe renti al panel - Blood lymphocytes/ 100 leukocytes in blood by automated count 24 % LYMPH OCYTE S 24 % 06/18 11:05 AM [employer] [facility] Not Available Not Available 09/23/2024 09:51:53 06/18/20 24 06/18/2024 CBC W Auto Diffe renti al panel - Blood monocytes 7 % MONOC YTES 7 % 06/18 11:05 AM [employer] [facility] Not Available Not Available 09/23/2024 09:51:53 06/18/20 24 06/18/2024 CBC W Auto Diffe renti al panel - Blood eosinophils 0 % EOSIN OPHIL S 0 % 06/18 11:05 AM [employer] [facility] Not Available Not Available 09/23/2024 09:51:53 06/18/20 24 06/18/2024 CBC W Auto Diffe renti al panel - Blood basophils 0 % BASOP HILS 0 % 06/18 11:05 AM [employer] [facility] Not Available Not Available 09/23/2024 09:51:53 06/18/20 24 06/18/2024 CBC W Auto Diffe renti al panel - Blood immature granulocytes 2 % IMMAT URE GRANU LOCYT ES 2 % 06/18 11:05 AM [facility] Not Available Not Available 09/23/2024 09:51:53 06/18/20 24 06/18/2024 CBC W Auto Diffe renti al panel - Blood neutrophils [#/volume] in blood by automated count 11.59 K/uL low: 1.9K/u Lhigh: 7K/uL high NEUTR OPHIL ABSOL NINILCHIK 11.59 (H) 1.90 - 7.00 K/uL 06/18 11:05 AM [facility] Not Available Not Available 09/23/2024 09:51:53 06/18/20 24 06/18/2024 CBC W Auto Diffe renti al panel - Blood lymphocyte absolute 4.21 K/uL low: 0.7K/u Lhigh: 4.5K/u L LYMPH OCYTE ABSOL NINILCHIK 4.21 0.70 - 4.50 K/uL 06/18 11:05 AM [facility] Not Available Not Available 09/23/2024 09:51:53 06/18/20 24 06/18/2024 CBC W Auto Diffe renti al panel - Blood monocyte absolute 1.13 K/uL low: 0.1K/u Lhigh: 1.3K/u L MONOC YTE ABSOL NINILCHIK 1.13 0.10 - 1.30 K/uL 06/18 11:05 AM [facility] Not Available Not Available 09/23/2024 09:51:53 06/18/20 24 06/18/2024 CBC W Auto Diffe renti al panel - Blood eosinophil absolute 0.05 K/uL low: 0K/uLh igh: 0.7K/u L EOSIN OPHIL ABSOL NINILCHIK 0.05 0.00 - 0.70 K/uL 06/18 11:05 AM [facility] Not Available Not Available 09/23/2024 09:51:53 06/18/20 24 06/18/2024 CBC W Auto Diffe renti al panel - Blood basophils absolute 0.04 K/uL low: 0K/uLh igh: 0.2K/u L BASOP HILS ABSOL NINILCHIK 0.04 0.00 - 0.20 K/uL 06/18 11:05 AM [facility] Not Available Not Available 09/23/2024 09:51:53 06/18/20 24 06/18/2024 CBC W Auto Diffe renti al panel - Blood immature granulocytes absolute 0.36 K/uL low: 0K/uLh igh: 0.03K/ uL high IMMAT URE GRANU LOCYT ES ABSOL NINILCHIK 0.36 (H) 0.00 - 0.03 K/uL 06/18 11:05 AM [facility] Not Available Not Available 09/23/2024 09:51:53 06/18/20 24 06/18/2024 CBC W Auto Diffe renangelica al panel - Blood interpretati on and review of laboratory results Abnorm al Not Available Not Available 09:51:53 06/18/20 24 06/18/2024 Basic metab olic 1999 panel - Serum or Plasm a sodium [moles/volum e] in serum or plasma 136 mmol/ L low: 136mmo l/Lhig h: 145mmo l/L SODIU M 136 136 - 145 mmol/ L 06/18 7:15 AM [facility] Not Available Not Available 09/23/2024 09:51:53 06/18/20 24 06/18/2024 Basic metab olic 1999 panel - Serum or Plasm a potassium [moles/volum e] in serum or plasma 3.7 mmol/ L low: 3.4mmo l/Lhig h: 5.1mmo l/L POTAS SIUM 3.7 3.4 - 5.1 mmol/ L 06/18 7:15 AM [employer] [facility] Not Available Not Available 09/23/2024 09:51:53 06/18/20 24 06/18/2024 Basic metab olic 2000 panel - Serum or Plasm a chloride 109 mmol/ L low: 98mmol /Lhigh : 107mmo l/L high CHLOR LAURA 109 (H) 98 - 107 mmol/ L 06/18 7:15 AM [facility] Not Available Not Available 09/23/2024 09:51:53 06/18/20 24 06/18/2024 Basic metab olic 1999 panel - Serum or Plasm a carbon dioxide, total [moles/volum e] in serum or plasma 20 mmol/ L low: 22mmol /Lhigh : 29mmol /L low CO2 20 (L) 22 - 29 mmol/ L 06/18 7:15 AM [facility] Not Available Not Available 09/23/2024 09:51:53 06/18/20 24 06/18/2024 Basic metab olic 2000 panel - Serum or Plasm a calcium 8.3 mg/dL low: 8.6mg/ dLhigh : 10.4mg /dL low CALCI UM 8.3 (L) 8.6 - 10.4 mg/dL 06/18 7:15 AM [employer] [facility] Not Available Not Available 09/23/2024 09:51:53 06/18/20 24 06/18/2024 Basic metab olic 1999 panel - Serum or Plasm a BUN 13 mg/dL low: 6mg/dL high: 20mg/d L BUN 13 6 - 20 mg/dL 06/18 7:15 AM [facility] Not Available Not Available 09/23/2024 09:51:53 06/18/20 24 06/18/2024 Basic metab olic 1999 panel - Serum or Plasm a creatinine [mass/volume ] in serum or plasma 0.68 mg/dL low: 0.51mg /dLhig h: 0.95mg /dL CREAT ININE 0.68 0.51 - 0.95 mg/dL 06/18 7:15 AM [facility] Not Available Not Available 09/23/2024 09:51:53 06/18/20 24 06/18/2024 Basic metab olic 2000 panel - Serum or Plasm a glucose [mass/volume ] in serum or plasma 76 mg/dL low: 74mg/d Lhigh: 99mg/d L GLUCO SE 76 74 - 99 mg/dL 06/18 7:15 AM [facility] Not Available Not Available 09/23/2024 09:51:53 06/18/20 24 06/18/2024 Basic metab olic 2000 panel - Serum or Plasm a glomerular filtration rate/1.73 sq M.predicted [volume rate/area] in serum, plasma or blood by creatinine-b ased formula (CKD-epi 2020) text: >=60 mL/min /1.73 sq meter GFR >60 >=60 mL/mi n/1.7 3 sq meter 06/18 7:15 AM [facility] Not Available Not Available 09/23/2024 09:51:53 06/18/20 24 06/18/2024 Basic metab olic 2000 panel - Serum or Plasm a anion gap 7 mmol/ L low: 8mmol/ Lhigh: 16mmol /L low ANION GAP 7 (L) 8 - 16 mmol/ L 06/18 7:15 AM [employer] Not Available Not Available 09/23/2024 09:51:53 06/18/20 24 06/18/2024 Basic metab olic 2000 panel - Serum or Plasm a interpretati on and review of laboratory results Abnorm al Not Available Not Available 09:51:53 06/19/20 24 06/19/2024 CBC panel - Blood by Autom ated count leukocytes [#/volume] in blood 14.6 K/uL low: 4K/uLh igh: 9.8K/u L high WBC 14.6 (H) 4.0 - 9.8 K/uL 06/19 3:29 PM [employer] [facility] Not Available Not Available 09/23/2024 09:51:53 06/19/20 24 06/19/2024 CBC panel - Blood by Autom ated count RBC 2.64 text: 3.90 - 4.90 M/uL low RBC 2.64 (L) 3.90 - 4.90 M/uL 06/19 3:29 PM [employer] [facility] Not Available Not Available 09/23/2024 09:51:53 06/19/20 24 06/19/2024 CBC panel - Blood by Autom ated count hemoglobin 7.5 g/dL low: 11.8g/ dLhigh : 14.8g/ dL low HEMOG LOBIN 7.5 (L) 11.8 - 14.8 g/dL 06/19 3:29 PM [facility] Not Available Not Available 09/23/2024 09:51:53 06/19/20 24 06/19/2024 CBC panel - Blood by Autom ated count hematocrit [volume fraction] of blood by automated count 24.9 % low: 35.5%h igh: 44% low HEMAT OCRIT 24.9 (L) 35.5 - 44.0 % 06/19 3:29 PM [facility] Not Available Not Available 09/23/2024 09:51:53 06/19/20 24 06/19/2024 CBC panel - Blood by Autom ated count MCV 94.3 fL low: 82fLhi gh: 99fL MCV 94.3 82.0 - 99.0 fL 06/19 3:29 PM [facility] Not Available Not Available 09/23/2024 09:51:53 06/19/20 24 06/19/2024 CBC panel - Blood by Autom ated count MCH 28.4 pg low: 27.2pg high: 32.6pg MCH 28.4 27.2 - 32.6 pg 06/19 3:29 PM [employer] [facility] Not Available Not Available 09/23/2024 09:51:53 06/19/20 24 06/19/2024 CBC panel - Blood by Autom ated count MCHC 30.1 g/dL low: 31.5g/ dLhigh : 35.5g/ dL low MCHC 30.1 (L) 31.5 - 35.5 g/dL 06/19 3:29 PM [employer] [facility] Not Available Not Available 09/23/2024 09:51:53 06/19/20 24 06/19/2024 CBC panel - Blood by Autom ated count platelets [#/volume] in blood by automated count 337 K/uL low: 140K/u Lhigh: 350K/u L PLATE LETS 337 140 - 350 K/uL 06/19 3:29 PM [employer] [facility] Not Available Not Available 09/23/2024 09:51:53 06/19/20 24 06/19/2024 CBC panel - Blood by Autom ated count MPV 9.2 fL low: 9.3fLh igh: 12.4fL low MPV 9.2 (L) 9.3 - 12.4 fL 06/19 3:29 PM [employer] [facility] Not Available Not Available 09/23/2024 09:51:53 06/19/20 24 06/19/2024 CBC panel - Blood by Autom ated count RDW 15.3 % low: 11.5%h igh: 14.5% high RDW 15.3 (H) 11.5 - 14.5 % 06/19 3:29 PM [employer] [facility] Not Available Not Available 09/23/2024 09:51:53 06/19/20 24 06/19/2024 CBC panel - Blood by Autom ated count RDW-stdev 52.4 fL low: 37.1fL high: 48.7fL high RDW-S TDEV 52.4 (H) 37.1 - 48.7 fL 06/19 3:29 PM [facility] Not Available Not Available 09/23/2024 09:51:53 06/19/20 24 06/19/2024 CBC panel - Blood by Autom ated count interpretati on and review of laboratory results Abnorm al Not Available Not Available 09:51:53 06/19/20 24 06/19/2024 Basic metab olic 1999 panel - Serum or Plasm a sodium [moles/volum e] in serum or plasma 139 mmol/ L low: 136mmo l/Lhig h: 145mmo l/L SODIU M 139 136 - 145 mmol/ L 06/19 3:48 AM [employer] [facility] Not Available Not Available 09/23/2024 09:51:53 06/19/20 24 06/19/2024 Basic metab olic 2000 panel - Serum or Plasm a potassium [moles/volum e] in serum or plasma 3.5 mmol/ L low: 3.4mmo l/Lhig h: 5.1mmo l/L POTAS SIUM 3.5 3.4 - 5.1 mmol/ L 06/19 3:48 AM [employer] [facility] Not Available Not Available 09/23/2024 09:51:53 06/19/20 24 06/19/2024 Basic metab olic 1999 panel - Serum or Plasm a chloride 109 mmol/ L low: 98mmol /Lhigh : 107mmo l/L high CHLOR LAURA 109 (H) 98 - 107 mmol/ L 06/19 3:48 AM [facility] Not Available Not Available 09/23/2024 09:51:53 06/19/20 24 06/19/2024 Basic metab olic 1999 panel - Serum or Plasm a carbon dioxide, total [moles/volum e] in serum or plasma 20 mmol/ L low: 22mmol /Lhigh : 29mmol /L low CO2 20 (L) 22 - 29 mmol/ L 06/19 3:48 AM [employer] [facility] Not Available Not Available 09/23/2024 09:51:53 06/19/20 24 06/19/2024 Basic metab olic 1999 panel - Serum or Plasm a calcium 8.3 mg/dL low: 8.6mg/ dLhigh : 10.4mg /dL low CALCI UM 8.3 (L) 8.6 - 10.4 mg/dL 06/19 3:48 AM [employer] [facility] Not Available Not Available 09/23/2024 09:51:53 06/19/20 24 06/19/2024 Basic metab olic 1999 panel - Serum or Plasm a BUN 14 mg/dL low: 6mg/dL high: 20mg/d L BUN 14 6 - 20 mg/dL 06/19 3:48 AM [employer] [facility] Not Available Not Available 09/23/2024 09:51:53 06/19/20 24 06/19/2024 Basic metab olic 1999 panel - Serum or Plasm a creatinine [mass/volume ] in serum or plasma 0.76 mg/dL low: 0.51mg /dLhig h: 0.95mg /dL CREAT ININE 0.76 0.51 - 0.95 mg/dL 06/19 3:48 AM [employer] [facility] Not Available Not Available 09/23/2024 09:51:53 06/19/20 24 06/19/2024 Basic metab olic 2000 panel - Serum or Plasm a glucose [mass/volume ] in serum or plasma 89 mg/dL low: 74mg/d Lhigh: 99mg/d L GLUCO SE 89 74 - 99 mg/dL 06/19 3:48 AM [employer] [facility] Not Available Not Available 09/23/2024 09:51:53 06/19/20 24 06/19/2024 Basic metab olic 2000 panel - Serum or Plasm a glomerular filtration rate/1.73 sq M.predicted [volume rate/area] in serum, plasma or blood by creatinine-b ased formula (CKD-epi 2020) text: >=60 mL/min /1.73 sq meter GFR >60 >=60 mL/mi n/1.7 3 sq meter 06/19 3:48 AM [employer] [facility] Not Available Not Available 09/23/2024 09:51:53 06/19/20 24 06/19/2024 Basic metab olic 2000 panel - Serum or Plasm a anion gap 10 mmol/ L low: 8mmol/ Lhigh: 16mmol /L ANION GAP 10 8 - 16 mmol/ L 06/19 3:48 AM [employer] [facility] Not Available Not Available 09/23/2024 09:51:53 06/19/20 24 06/19/2024 Basic metab olic 2000 panel - Serum or Plasm a interpretati on and review of laboratory results Abnorm al Not Available Not Available 09:51:53 06/19/20 24 06/19/2024 CBC W Auto Diffe renti al panel - Blood leukocytes [#/volume] in blood 11.2 K/uL low: 4K/uLh igh: 9.8K/u L high WBC 11.2 (H) 4.0 - 9.8 K/uL 06/19 3:37 AM [employer] [facility] Not Available Not Available 09/23/2024 09:51:53 06/19/20 24 06/19/2024 CBC W Auto Diffe renti al panel - Blood RBC 2.48 text: 3.90 - 4.90 M/uL low RBC 2.48 (L) 3.90 - 4.90 M/uL 06/19 3:37 AM [employer] [facility] Not Available Not Available 09/23/2024 09:51:53 06/19/20 24 06/19/2024 CBC W Auto Diffe renti al panel - Blood hemoglobin 7.2 g/dL low: 11.8g/ dLhigh : 14.8g/ dL low HEMOG LOBIN 7.2 (L) 11.8 - 14.8 g/dL 06/19 3:37 AM [employer] [facility] Not Available Not Available 09/23/2024 09:51:53 06/19/20 24 06/19/2024 CBC W Auto Diffe renti al panel - Blood hematocrit [volume fraction] of blood by automated count 23.1 % low: 35.5%h igh: 44% low HEMAT OCRIT 23.1 (L) 35.5 - 44.0 % 06/19 3:37 AM [employer] [facility] Not Available Not Available 09/23/2024 09:51:53 06/19/20 24 06/19/2024 CBC W Auto Diffe renti al panel - Blood MCV 93.1 fL low: 82fLhi gh: 99fL MCV 93.1 82.0 - 99.0 fL 06/19 3:37 AM [employer] [facility] Not Available Not Available 09/23/2024 09:51:53 06/19/20 24 06/19/2024 CBC W Auto Diffe renti al panel - Blood MCH 29 pg low: 27.2pg high: 32.6pg MCH 29.0 27.2 - 32.6 pg 06/19 3:37 AM [employer] [facility] Not Available Not Available 09/23/2024 09:51:53 06/19/20 24 06/19/2024 CBC W Auto Diffe renti al panel - Blood MCHC 31.2 g/dL low: 31.5g/ dLhigh : 35.5g/ dL low MCHC 31.2 (L) 31.5 - 35.5 g/dL 06/19 3:37 AM [employer] [facility] Not Available Not Available 09/23/2024 09:51:53 06/19/20 24 06/19/2024 CBC W Auto Diffe renti al panel - Blood RDW 15.3 % low: 11.5%h igh: 14.5% high RDW 15.3 (H) 11.5 - 14.5 % 06/19 3:37 AM [employer] [facility] Not Available Not Available 09/23/2024 09:51:53 06/19/20 24 06/19/2024 CBC W Auto Diffe renti al panel - Blood RDW-stdev 52 fL low: 37.1fL high: 48.7fL high RDW-S TDEV 52.0 (H) 37.1 - 48.7 fL 06/19 3:37 AM [employer] [facility] Not Available Not Available 09/23/2024 09:51:53 06/19/20 24 06/19/2024 CBC W Auto Diffe renti al panel - Blood platelets [#/volume] in blood by automated count 336 K/uL low: 140K/u Lhigh: 350K/u L PLATE LETS 336 140 - 350 K/uL 06/19 3:37 AM [employer] [facility] Not Available Not Available 09/23/2024 09:51:53 06/19/20 24 06/19/2024 CBC W Auto Diffe renti al panel - Blood MPV 9.5 fL low: 9.3fLh igh: 12.4fL MPV 9.5 9.3 - 12.4 fL 06/19 3:37 AM [employer] [facility] Not Available Not Available 09/23/2024 09:51:53 06/19/20 24 06/19/2024 CBC W Auto Diffe renti al panel - Blood neutrophils 63 % NEUTR OPHIL S 63 % 06/19 3:37 AM [employer] [facility] Not Available Not Available 09/23/2024 09:51:53 06/19/20 24 06/19/2024 CBC W Auto Diffe renti al panel - Blood lymphocytes/ 100 leukocytes in blood by automated count 27 % LYMPH OCYTE S 27 % 06/19 3:37 AM [employer] [facility] Not Available Not Available 09/23/2024 09:51:53 06/19/20 24 06/19/2024 CBC W Auto Diffe renti al panel - Blood monocytes 8 % MONOC YTES 8 % 06/19 3:37 AM [facility] [employer] [facility] Not Available Not Available 09/23/2024 09:51:53 06/19/20 24 06/19/2024 CBC W Auto Diffe renti al panel - Blood eosinophils 0 % EOSIN OPHIL S 0 % 06/19 3:37 AM [employer] [facility] Not Available Not Available 09/23/2024 09:51:53 06/19/20 24 06/19/2024 CBC W Auto Diffe renti al panel - Blood basophils 0 % BASOP HILS 0 % 06/19 3:37 AM [facility] [employer] [facility] Not Available Not Available 09/23/2024 09:51:53 06/19/20 24 06/19/2024 CBC W Auto Diffe renti al panel - Blood immature granulocytes 1 % IMMAT URE GRANU LOCYT ES 1 % 06/19 3:37 AM [facility] Not Available Not Available 09/23/2024 09:51:53 06/19/20 24 06/19/2024 CBC W Auto Diffe renti al panel - Blood neutrophils [#/volume] in blood by automated count 7.08 K/uL low: 1.9K/u Lhigh: 7K/uL high NEUTR OPHIL ABSOL NINILCHIK 7.08 (H) 1.90 - 7.00 K/uL 06/19 3:37 AM [employer] [facility] Not Available Not Available 09/23/2024 09:51:53 06/19/20 24 06/19/2024 CBC W Auto Diffe renti al panel - Blood lymphocyte absolute 3.04 K/uL low: 0.7K/u Lhigh: 4.5K/u L LYMPH OCYTE ABSOL NINILCHIK 3.04 0.70 - 4.50 K/uL 06/19 3:37 AM [employer] [facility] Not Available Not Available 09/23/2024 09:51:53 06/19/20 24 06/19/2024 CBC W Auto Diffe renti al panel - Blood monocyte absolute 0.9 K/uL low: 0.1K/u Lhigh: 1.3K/u L MONOC YTE ABSOL NINILCHIK 0.90 0.10 - 1.30 K/uL 06/19 3:37 AM [employer] [facility] Not Available Not Available 09/23/2024 09:51:53 06/19/20 24 06/19/2024 CBC W Auto Diffe renti al panel - Blood eosinophil absolute 0.01 K/uL low: 0K/uLh igh: 0.7K/u L EOSIN OPHIL ABSOL NINILCHIK 0.01 0.00 - 0.70 K/uL 06/19 3:37 AM [employer] [facility] Not Available Not Available 09/23/2024 09:51:53 06/19/20 24 06/19/2024 CBC W Auto Diffe renti al panel - Blood basophils absolute 0.02 K/uL low: 0K/uLh igh: 0.2K/u L BASOP HILS ABSOL NINILCHIK 0.02 0.00 - 0.20 K/uL 06/19 3:37 AM [employer] [facility] Not Available Not Available 09/23/2024 09:51:53 06/19/20 24 06/19/2024 CBC W Auto Diffe renti al panel - Blood immature granulocytes absolute 0.13 K/uL low: 0K/uLh igh: 0.03K/ uL high IMMAT URE GRANU LOCYT ES ABSOL NINILCHIK 0.13 (H) 0.00 - 0.03 K/uL 06/19 3:37 AM [employer] [facility] Not Available Not Available 09/23/2024 09:51:53 06/19/20 24 06/19/2024 CBC W Auto Diffe renti al panel - Blood interpretati on and review of laboratory results Abnorm al Not Available Not Available 09:51:53 06/20/20 24 06/20/2024 Basic metab olic 1999 panel - Serum or Plasm a sodium [moles/volum e] in serum or plasma 139 mmol/ L low: 136mmo l/Lhig h: 145mmo l/L SODIU M 139 136 - 145 mmol/ L 06/20 7:15 AM [facility] Not Available Not Available 09/23/2024 09:51:54 06/20/20 24 06/20/2024 Basic metab olic 1999 panel - Serum or Plasm a potassium [moles/volum e] in serum or plasma 3.7 mmol/ L low: 3.4mmo l/Lhig h: 5.1mmo l/L POTAS SIUM 3.7 3.4 - 5.1 mmol/ L 06/20 7:15 AM [facility] Not Available Not Available 09/23/2024 09:51:54 06/20/20 24 06/20/2024 Basic metab olic 1999 panel - Serum or Plasm a chloride 107 mmol/ L low: 98mmol /Lhigh : 107mmo l/L CHLOR LAURA 107 98 - 107 mmol/ L 06/20 7:15 AM [employer] [facility] Not Available Not Available 09/23/2024 09:51:54 06/20/20 24 06/20/2024 Basic metab olic 1999 panel - Serum or Plasm a carbon dioxide, total [moles/volum e] in serum or plasma 23 mmol/ L low: 22mmol /Lhigh : 29mmol /L CO2 23 22 - 29 mmol/ L 06/20 7:15 AM [facility] Not Available Not Available 09/23/2024 09:51:54 06/20/20 24 06/20/2024 Basic metab olic 1999 panel - Serum or Plasm a calcium 8.2 mg/dL low: 8.6mg/ dLhigh : 10.4mg /dL low CALCI UM 8.2 (L) 8.6 - 10.4 mg/dL 06/20 7:15 AM [facility] Not Available Not Available 09/23/2024 09:51:54 06/20/20 24 06/20/2024 Basic metab olic 1999 panel - Serum or Plasm a BUN 11 mg/dL low: 6mg/dL high: 20mg/d L BUN 11 6 - 20 mg/dL 06/20 7:15 AM [facility] Not Available Not Available 09/23/2024 09:51:54 06/20/20 24 06/20/2024 Basic metab olic 1999 panel - Serum or Plasm a creatinine [mass/volume ] in serum or plasma 0.72 mg/dL low: 0.51mg /dLhig h: 0.95mg /dL CREAT ININE 0.72 0.51 - 0.95 mg/dL 06/20 7:15 AM [facility] Not Available Not Available 09/23/2024 09:51:54 06/20/20 24 06/20/2024 Basic metab olic 2000 panel - Serum or Plasm a glucose [mass/volume ] in serum or plasma 76 mg/dL low: 74mg/d Lhigh: 99mg/d L GLUCO SE 76 74 - 99 mg/dL 06/20 7:15 AM [facility] Not Available Not Available 09/23/2024 09:51:54 06/20/20 24 06/20/2024 Basic metab olic 1999 panel - Serum or Plasm a glomerular filtration rate/1.73 sq M.predicted [volume rate/area] in serum, plasma or blood by creatinine-b ased formula (CKD-epi 2020) text: >=60 mL/min /1.73 sq meter GFR >60 >=60 mL/mi n/1.7 3 sq meter 06/20 7:15 AM [facility] Not Available Not Available 09/23/2024 09:51:54 06/20/20 24 06/20/2024 Basic metab olic 2000 panel - Serum or Plasm a anion gap 9 mmol/ L low: 8mmol/ Lhigh: 16mmol /L ANION GAP 9 8 - 16 mmol/ L 06/20 7:15 AM [employer] [facility] Not Available Not Available 09/23/2024 09:51:54 06/20/20 24 06/20/2024 Basic metab olic 2000 panel - Serum or Plasm a interpretati on and review of laboratory results Abnorm al Not Available Not Available 09:51:54 06/20/20 24 06/20/2024 CBC W Auto Diffe renti al panel - Blood leukocytes [#/volume] in blood 10.1 K/uL low: 4K/uLh igh: 9.8K/u L high WBC 10.1 (H) 4.0 - 9.8 K/uL 06/20 6:57 AM [facility] Not Available Not Available 09/23/2024 09:51:53 06/20/20 24 06/20/2024 CBC W Auto Diffe renti al panel - Blood RBC 2.46 text: 3.90 - 4.90 M/uL low RBC 2.46 (L) 3.90 - 4.90 M/uL 06/20 6:57 AM [facility] Not Available Not Available 09/23/2024 09:51:53 06/20/20 24 06/20/2024 CBC W Auto Diffe renti al panel - Blood hemoglobin 7.2 g/dL low: 11.8g/ dLhigh : 14.8g/ dL low HEMOG LOBIN 7.2 (L) 11.8 - 14.8 g/dL 06/20 6:57 AM [facility] Not Available Not Available 09/23/2024 09:51:53 06/20/20 24 06/20/2024 CBC W Auto Diffe renti al panel - Blood hematocrit [volume fraction] of blood by automated count 22.5 % low: 35.5%h igh: 44% low HEMAT OCRIT 22.5 (L) 35.5 - 44.0 % 06/20 6:57 AM [facility] [facility] Not Available 09/23/2024 09:51:53 06/20/20 24 06/20/2024 CBC W Auto Diffe renti al panel - Blood MCV 91.5 fL low: 82fLhi gh: 99fL MCV 91.5 82.0 - 99.0 fL 06/20 6:57 AM [employer] [facility] Not Available Not Available 09/23/2024 09:51:53 06/20/20 24 06/20/2024 CBC W Auto Diffe renti al panel - Blood MCH 29.3 pg low: 27.2pg high: 32.6pg MCH 29.3 27.2 - 32.6 pg 06/20 6:57 AM [employer] [facility] Not Available Not Available 09/23/2024 09:51:53 06/20/20 24 06/20/2024 CBC W Auto Diffe renti al panel - Blood MCHC 32 g/dL low: 31.5g/ dLhigh : 35.5g/ dL MCHC 32.0 31.5 - 35.5 g/dL 06/20 6:57 AM [employer] [facility] Not Available Not Available 09/23/2024 09:51:53 06/20/20 24 06/20/2024 CBC W Auto Diffe renti al panel - Blood RDW 15.3 % low: 11.5%h igh: 14.5% high RDW 15.3 (H) 11.5 - 14.5 % 06/20 6:57 AM [facility] Not Available Not Available 09/23/2024 09:51:53 06/20/20 24 06/20/2024 CBC W Auto Diffe renti al panel - Blood RDW-stdev 51.3 fL low: 37.1fL high: 48.7fL high RDW-S TDEV 51.3 (H) 37.1 - 48.7 fL 06/20 6:57 AM [employer] [facility] Not Available Not Available 09/23/2024 09:51:53 06/20/20 24 06/20/2024 CBC W Auto Diffe renti al panel - Blood platelets [#/volume] in blood by automated count 316 K/uL low: 140K/u Lhigh: 350K/u L PLATE LETS 316 140 - 350 K/uL 06/20 6:57 AM [facility] Not Available 09/23/2024 09:51:53 06/20/20 24 06/20/2024 CBC W Auto Diffe renti al panel - Blood MPV 9.4 fL low: 9.3fLh igh: 12.4fL MPV 9.4 9.3 - 12.4 fL 06/20 6:57 AM [facility] Not Available Not Available 09/23/2024 09:51:53 06/20/20 24 06/20/2024 CBC W Auto Diffe renti al panel - Blood neutrophils 56 % NEUTR OPHIL S 56 % 06/20 6:57 AM [facility] Not [facility] Not Available 09/23/2024 09:51:53 06/20/20 24 06/20/2024 CBC W Auto Diffe renti al panel - Blood lymphocytes/ 100 leukocytes in blood by automated count 35 % LYMPH OCYTE S 35 % 06/20 6:57 AM [facility] Not Available Not Available 09/23/2024 09:51:53 06/20/20 24 06/20/2024 CBC W Auto Diffe renti al panel - Blood monocytes 8 % MONOC YTES 8 % 06/20 6:57 AM [facility] Not [facility] Not Available 09/23/2024 09:51:53 06/20/20 24 06/20/2024 CBC W Auto Diffe renti al panel - Blood eosinophils 0 % EOSIN OPHIL S 0 % 06/20 6:57 AM [facility] Not [facility] Not Available 09/23/2024 09:51:53 06/20/20 24 06/20/2024 CBC W Auto Diffe renti al panel - Blood basophils 0 % BASOP HILS 0 % 06/20 6:57 AM [facility] [employer] [facility] Not Available Not Available 09/23/2024 09:51:53 06/20/20 24 06/20/2024 CBC W Auto Diffe renti al panel - Blood immature granulocytes 1 % IMMAT URE GRANU LOCYT ES 1 % 06/20 6:57 AM [facility] Not Available Not Available 09/23/2024 09:51:53 06/20/20 24 06/20/2024 CBC W Auto Diffe renti al panel - Blood neutrophils [#/volume] in blood by automated count 5.67 K/uL low: 1.9K/u Lhigh: 7K/uL NEUTR OPHIL ABSOL NINILCHIK 5.67 1.90 - 7.00 K/uL 06/20 6:57 AM [facility] [employer] [facility] Not Available Not Available 09/23/2024 09:51:53 06/20/20 24 06/20/2024 CBC W Auto Diffe renti al panel - Blood lymphocyte absolute 3.53 K/uL low: 0.7K/u Lhigh: 4.5K/u L LYMPH OCYTE ABSOL NINILCHIK 3.53 0.70 - 4.50 K/uL 06/20 6:57 AM [employer] [facility] Not Available Not Available 09/23/2024 09:51:53 06/20/20 24 06/20/2024 CBC W Auto Diffe renti al panel - Blood monocyte absolute 0.8 K/uL low: 0.1K/u Lhigh: 1.3K/u L MONOC YTE ABSOL NINILCHIK 0.80 0.10 - 1.30 K/uL 06/20 6:57 AM [employer] [facility] Not Available Not Available 09/23/2024 09:51:53 06/20/20 24 06/20/2024 CBC W Auto Diffe renti al panel - Blood eosinophil absolute 0.04 K/uL low: 0K/uLh igh: 0.7K/u L EOSIN OPHIL ABSOL NINILCHIK 0.04 0.00 - 0.70 K/uL 06/20 6:57 AM [employer] [facility] Not Available Not Available 09/23/2024 09:51:53 06/20/20 24 06/20/2024 CBC W Auto Diffe renti al panel - Blood basophils absolute 0.01 K/uL low: 0K/uLh igh: 0.2K/u L BASOP HILS ABSOL NINILCHIK 0.01 0.00 - 0.20 K/uL 06/20 6:57 AM [employer] [facility] Not Available Not Available 09/23/2024 09:51:53 06/20/20 24 06/20/2024 CBC W Auto Diffe renti al panel - Blood immature granulocytes absolute 0.08 K/uL low: 0K/uLh igh: 0.03K/ uL high IMMAT URE GRANU LOCYT ES ABSOL NINILCHIK 0.08 (H) 0.00 - 0.03 K/uL 06/20 6:57 AM [employer] [facility] Not Available Not Available 09/23/2024 09:51:53 06/20/20 24 06/20/2024 CBC W Auto Diffe renti al panel - Blood interpretati on and review of laboratory results Abnorm al Not Available Not Available 09:51:53 11/05/19 23 11/04/2022 MAMMO , scree stephenie, digit al, bilat eral No observ [facility]ion [facility] ed[email or web address] [address] [place], [address], 11/06/2022 13:31:07 11/05/19 23 11/04/2022 MAMMO , scree stephenie, digit al, bilat eral No observ ation record ed. [facility] [address] [place], [address], 11/06/2022 13:31:07 12/19/19 23 12/17/2022 LDCT, chest , for lung cance r scree stephenie No observ ation record ed. [facility] [address] [place], [address], 12/24/2022 12:04:38 12/19/19 23 12/17/2022 LDCT, chest , for lung cance r scree stephenie No observ ation record ed. [facility] [address] [place], [address], 12/24/2022 12:04:39 Result Notes None recorded. Problems Name Problem SNOMED Code Status Onset Date Resolution Date Notes Provider Name and Address Organization Details Recorded Time Thoracic back pain 523643954 Active 2017 Colten Castro PA-C Attn: Staci waldron,[address] [place], [address], [facility] - [facility] 8 16:32:13 Left flank pain 370824585 Active 2017 Colten Castro PA-C Attn: Staci waldron,[address] [place], [address], [place] [facility] 8 17:33:11 Abscess of left axilla 84020337574 796469 Active 2018 Colten Castro PA-C Attn: Staci waldron,[address] [place], [address], [facility] - [facility] 9 15:16:02 Low back pain 107085935 Active 2018 Colten Castro PA-C Attn: Staci waldron,[address] [place], [address], [place] [facility] 9 15:18:41 Obese 425458279 Active 2018 Colten Castro PA-C Attn: Accountin g,[address] [facility], [place], [address], [place] [facility] 9 12:14:26 Screenin g for malignan t neoplasm of breast Active 2019 Colten Castro PA-C Attn: Accountin g,[address] [facility], [place], [address], [place] [facility] 0 15:54:31 Kidney stone 62864516 Active 2019 Colten Castro PA-C Attn: Accountin g,[address] [facility], [place], [address], [place] [facility] 0 16:49:59 Herpes zoster 7690850 Active 2019 Colten Castro PA-C Attn: Accountin g,[address] [facility], [place], [address], [place] [facility] 0 11:13:52 Dysuria 13001632 Active 2019 Colten Castro PA-C Attn: Accountin g,[address] [facility], [place], [address], [place] [facility] 0 12:36:07 Bilatera l osteoart hritis of knees 50843646043 9107 Active 2019 moderate tricompa rtmental degenera tive changes bilatera l knees ; see xray 05/22/20 20 Colten Castro PA-C Attn: Accountin g,[address] [facility], [place], [address], [place] [facility] 0 18:48:19 Osteopen ia 940408672 Active 2020 see DEXA scan 2 Colten Castro PA-C Attn: Accountin g,[address] [facility], [place], [address], [place] [facility] 1 12:18:44 Flank pain 476040248 Active 2021 Colten Castro PA-C Attn: Accountin g,[address] [place], [place], [address] [place] [address] 2, [place] [facility] 2 15:25:06 Knee pain Active Colten Castro PA-C Attn: Accountin g,[address] [facility], [place], [place], [address] [place] [address] 2, [place] [facility] 6 17:21:11 Anemia 729291911 Active Colten Castro PA-C Attn: Accountin g,[address] [place], [place], [address] [place] [address] 2, [place] [facility] 5 17:31:50 Tobacco user 983011089 Active Colten Castro PA-C Attn: Accountin g,[address] [place], [place], [address] [place] [address] 2, [place] [facility] 6 16:15:31 Costal chondrit is 14654106 Active [employer] Colten Castro PA-C Attn: Accountin g,[address] [place], [place], [address] [place] [address] 2, [place] [facility] 5 15:48:28 Sprain of ankle 50043104 Active Rosalia Aleman MA null, [place] [facility] 5 15:33:50 Gastroes ophageal reflux disease 561708972 Active Colten Castro PA-C Attn: Accountin g,[address] [place], [place], [address] [place] [address] 2, [place] [facility] 6 16:15:31 Iron deficien cy 62984602 Active Colten Castro PA-C Attn: Accountin g,[address] [place], [place], [address] [place] [address] 2, [place] [facility] 6 16:15:31 Plantar fasciiti s 441506914 Active Colten Castro PA-C Attn: Accountin g,[address] [facility] [place], [address] [place] [address] 2, [place] [facility] 5 15:48:28 Disorder of joint of spine 410855200 Active Colten Castro PA-C Attn: Accountjosseline waldron,[address] [facility], [place], [place], [address] [place] [address] 2, [place] [facility] 6 13:53:15 Contact dermatit is 79783247 Active Colten Castro PA-C Attn: Accountin g,[address] [facility], [place], [place], [address] [place] [address] 2, [place] [facility] 5 15:21:08 Acute urinary tract infectio n 229143005 Active Colten Castro PA-C Attn: Accountjosseline waldron,[address] [facility], [place], [place], [address] [place] [address] 2, [place] [facility] 5 17:31:50 Insomnia 783309522 Active Colten Castro PA-C Attn: Accountin g,[address] [facility], [place], [place], [address] [place] [address] 2, [place] [facility] 6 16:15:31 Acute follicul itis 099407916 Active Colten Castro PA-C Attn: Accountjosseline g,[address] [facility], [place], [place], [address] [place] [address] 2, [place] [facility] 6 17:21:11 Shoulder strain 486890538 Active Colten Castro PA-C Attn: Accountin g,[address] [facility], [place], [place], [address] [place] [address] 2, [place] [facility] 6 12:41:03 Sinusiti s 69395660 Active Colten Castro PA-C Attn: Accountin g,[address] [facility], [place], [place], [address] [place] [address] 2, [place] [facility] 6 13:53:15 Juvenile spondylo arthropa thy 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 - SI 9 12:14:40 Problem Notes None recorded. Procedures Surgical History Date Name Laterality Status Provider Name and Address Organization Details Recorded Time 05/06/2021 Date of Last Pap Smear completed Kaelyn Shelton MA [facility] 10/27/2022 14:33:27 Imaging Results Imaging Date Name Status LastModified by [facility] Details LastModified Time 11/04/2022 MAMMO, screening, digital, bilateral completed [facility] [address] [place], [address], 11/06/2022 13:31:07 11/04/2022 MAMMO, screening, digital, bilateral completed [facility] [address] [place], [address], 11/06/2022 13:31:07 12/17/2022 LDCT, chest, for lung cancer screening completed [facility] [address] [place], [address], 12/24/2022 12:04:38 12/17/2022 LDCT, chest, for lung cancer screening completed [facility] [address] [place], [address], 12/24/2022 12:04:39 Procedure Notes None recorded. Medical Equipment None [...] Available Not Available Not Available amoxicillin 875 mg-potassiu m clavulanate 125 mg tablet TAKE 1 [...] Arterial blood by Pulse oximetry Heart rate Systolic blood pressure Diastolic blood pressure Provider Name and Address Organization Details Last Updated DateTime 3 158.75 cm 33.9 kg/m2 28622.8 g 99 % 99 % 76 /min 126 mm[Hg] 74 mm[Hg] Ivelisse White MA [facility] 3 15:52:34 Date Recorded Body height Body mass index (BMI) Body weight Body temperature Oxygen saturation Oxygen saturation in Arterial blood by Pulse oximetry Heart rate Respiratory rate Systolic blood pressure Diastolic blood pressure Provider Name and Address Organization Details Last Updated DateTime 3 158.75 cm 33.8 kg/m2 11956.3 7 g 97.8 [degF] 98 % 98 % 65 /min 20 /min 128 mm[Hg] 78 mm[Hg] Kaelyn Shelton MA [place] - [facility] 3 14:35:15 Date Recorded Body height Body mass index (BMI) Body weight Oxygen saturation Oxygen saturation in Arterial blood by Pulse oximetry Heart rate Systolic blood pressure Diastolic blood pressure Provider Name and Address Organization Details Last Updated DateTime 3 158.75 cm 32.2 kg/m2 58674.3 2 g 98 % 98 % 67 /min 124 mm[Hg] 70 mm[Hg] Ivelisse White MA [facility] 3 14:44:25 Date Recorded Body height Body mass index (BMI) Body weight Heart rate Oxygen saturation Oxygen saturation in Arterial blood by Pulse oximetry Systolic blood pressure Diastolic blood pressure Provider Name and Address Organization Details Last Updated DateTime 3 158.75 cm 32.2 kg/m2 26059.0 3 g 81 /min 100 % 100 % 118 mm[Hg] 68 mm[Hg] Danielle Santos MA [facility] 3 15:09:26 Date Recorded Body height Body mass index (BMI) Body weight Oxygen saturation Oxygen saturation in Arterial blood by Pulse oximetry Heart rate Body temperature Systolic blood pressure Diastolic blood pressure Provider Name and Address Organization Details Last Updated DateTime 5 158.75 cm 27.7 kg/m2 89732.2 2 g 100 % 100 % 78 /min 97.8 [degF] 110 mm[Hg] 70 mm[Hg] Kaelyn Shelton MA [facility] 5 10:02:40 Social History Question Answer Notes LastModified by Organizat ion Details LastModified Time Tobacco Smoking Status Former Smoker quit 6 months ago Kaelyn Shelton MA null, [facility] 09/23/2024 10:00:28 Do You Have An [...] Or The Highest Degree You Have Received? [id number] Information not available 04/29/2023 Are There Any [...] Anxious, Or Unable To Sleep At Night)? [id number] Information not available 04/29/2023 Do You Use [...] Immunizations Vaccine Type Date Status Note Provider Nam e and Address Organization Details Recorded Time COVID-19, mRNA, LNP-S, PF, 100 mcg/0.5mL dose or 50 mcg/0.25mL dose 10/09/2020 completed DEXTER [place], [place] [facility] 04/23/2021 16:57:45 COVID-19, mRNA, LNP-S, PF, 100 mcg/0.5mL dose or 50 mcg/0.25mL dose 11/06/2020 completed DEXTER [place], [place] [facility] 04/23/2021 16:57:54 Past Encounters Encounter ID Performer Location Encounter Start Date Encounter Closed Date Diagnosis/Indication Diagnosis SNOMED-CT Code Diagnosis ICD10 Code Diagnosis Note [id number] DEXTER Salvador (Adult Med) [address] [place] [address] 09/26/2014 14:57:20 09/26/2014 15:53:51 Anemia 555126909 Costal chondritis 18909662 Disorder o f joint of spine 164651995 Gastroesop hageal reflux disease 801336568 Iron deficiency 23419089 Knee pain 72012179 Plantar fasciitis 258896373 Tobacco user [id number] Sami (Adult Med) [address] [place] [address] 12/26/2014 14:47:11 12/26/2014 15:23:02 Contact dermatitis 79365814 Adult heal th examination 790488041 Disorder o f joint of spine 320145134 spondyloar thropathy [id number] VAIBHAV Ferguson (Adult Med) [address] [place] [address] 02/22/2015 15:56:31 02/22/2015 17:33:57 Acute urinary tract infection 059307257 Adult heal th examination 490568750 Anemia 503085465 Gastroesop hageal reflux disease 403528633 Iron deficiency 13143298 Tobacco user [id number] VAIBHAV Ferguson (Adult Med) [address] [place] [address] 06/07/2015 14:43:26 06/07/2015 15:32:02 Normal grief reaction 203761815 F43.20 Insomnia 768220881 G47.0 0 Gastroesop hageal reflux disease 908364358 K21.9 Iron deficiency 12286737 E61.1 Tobacco user 954359505 Z 72.0 [id number] VAIBHAV Ferguson (Adult Med) [address] [place] [address] 08/09/2015 15:23:14 08/09/2015 16:19:18 Acute folliculitis 449937726 L73.9 right axilla Gastroesop hageal reflux disease 941614679 K21.9 Iron deficiency 94834729 E61.1 Tobacco user 091691474 Z 72.0 Insomnia 137637407 G47.0 0 Shoulder strain 95453122 4 S46.012D [id number] VAIBHAV Ferguson (Adult Med) [address] [place] [address] 0 09/18/2015 11:50:25 09/18/2015 17:59:47 Sinusitis 11737318 J32.9 Disorder o f joint of spine 085712793 M53.9 spondyloar thropathy [id number] VAIBHAV Ferguson (Adult Med) [address] [place] [address] 0 02/11/2016 15:00:23 02/11/2016 15:54:47 Acute folliculitis 954075596 L73.9 right axilla Knee pain 93468807 M25.5 61 Juvenile spondyloarthropathy 202235344 M08.1 closest diagnosis available [id number] VAIBHAV Ferguson (Adult Med) [address] [place] [address] 08/28/2016 13:59:30 08/28/2016 14:41:21 Acute folliculitis 306777840 L73.9 right axilla Contact dermatitis 39737 004 L25.9 medial right ankle Iron deficiency 55092263 E61.1 Gastroesop hageal reflux disease 727450180 K21.9 Insomnia 605594045 G47.0 0 Tobacco user 234475513 Z 72.0 Juvenile spondyloarthropathy 105989953 M08.1 closest diagnosis available Obesity 759194631 E66.9 [id number] VAIBHAV Ferguson (Adult Med) [address] [place] [address] 01/05/2017 14:35:37 01/05/2017 15:22:14 Sinusitis 11498001 J32.9 Acute folliculitis 25067 7007 L73.9 right axilla Shoulder strain 01443344 4 S46.012D Juvenile spondyloarthropathy 415115271 M08.1 closest diagnosis available [id number] VAIBHAV Ferguson (Adult Med) [address] [place] [address] 03/27/2017 16:04:30 03/27/2017 16:44:20 Gastroesophageal reflux disease 713457830 K21.9 Obesity 550710731 E66.9 Tobacco user 854678352 Z 72.0 Anemia 281751347 D64.9 [id number] VAIBHAV Ferguson (Adult Med) [address] [place] [address] 06/25/2017 14:42:37 06/25/2017 15:17:43 Acute folliculitis 885747749 L73.9 right axilla; now left axilla Normal grief reaction 27 1154200 F43.20 Shoulder strain 36824455 4 S46.012D Gastroesop hageal reflux disease 376101412 K21.9 Insomnia 147999061 G47.0 0 Tobacco user 693740694 Z 72.0 Obesity 529574112 E66.9 Anemia 543164858 D64.9 [id number] VAIBHAV Ferguson (Adult Med) [address] [place] [address] 0 09/14/2017 15:28:19 09/14/2017 17:09:59 Acute folliculitis 325128862 L73.9 left groin 09/14/17 Thoracic back pain 71484 8004 M54.6 Shoulder strain 88305865 4 S46.012D Gastroesop hageal reflux disease 218358230 K21.9 Obesity 899122113 E66.9 Anemia 488811985 D64.9 [id number] VAIBHAV Ferguson (Adult Med) [address] [place] [address] 07/02/2018 16:57:38 07/05/2018 09:25:25 Screening for malignant neoplasm of breast 385607479 Z12.31 Left flank pain 38038627 9 R10.9 [id number] RANDOLPH Portillo (Adult Med) [address] [place] [address] 12/17/2018 15:01:21 12/20/2018 09:19:35 Juvenile spondyloarthropathy 013120322 M08.1 closest diagnosis available Shoulder strain 12943464 4 S46.012D [id number] VAIBHAV Ferguson (Adult Med) [address] [place] [address] 0 04/29/2019 14:39:02 05/02/2019 09:08:15 Abscess of left axilla 6855408355 8508489 L02.412 Low back pain 765989067 M54.5 Juvenile spondyloarthropathy 720668148 M08.1 closest diagnosis available Gastroesop hageal reflux disease 065846867 K21.9 Obesity 414301810 E66.9 Insomnia 943668303 G47.0 0 Iron deficiency 56601037 E61.1 [id number] VAIBHAV Ferguson (Adult Med) [address] [place] [address] 0 05/30/2019 15:30:35 05/30/2019 16:06:02 Low back pain 570459086 M54.5 Abscess of left axilla 3000372488 6813663 L02.412 Juvenile spondyloarthropathy 251035349 M08.1 closest diagnosis available Gastroesop hageal reflux disease 839562119 K21.9 Obese 986863073 E66.9 [id number] VAIBHAV Ferguson (Adult Med) [address] [place] [address] 0 09/02/2019 15:31:01 09/02/2019 16:00:56 Juvenile spondyloarthropathy 361731627 M08.1 closest diagnosis available Gastroesop hageal reflux disease 531308541 K21.9 Screening for malignant neoplasm of breast 469767768 Z12.31 Obese 608423180 E66.9 Tobacco user 389084572 Z 72.0 Thoracic back pain 75911 8004 M54.6 Low back pain 627663216 M54.5 Insomnia 309247726 G47.0 0 [id number] VAIBHAV Ferguson (Adult Med) [address] [place] [address] 0 09/30/2019 13:57:32 09/30/2019 17:12:50 Juvenile spondyloarthropathy 717372798 M08.1 closest diagnosis available Kidney stone 98251079 N2 0.0 [id number] VAIBHAV Ferguson (Adult Med) [address] [place] [address] 0 10/04/2019 10:55:34 10/04/2019 16:31:53 Herpes zoster 7043142 B02.9 Juvenile spondyloarthropathy 829372624 M08.1 closest diagnosis available Kidney stone 56319382 N2 0.0 [id number] VAIBHAV Ferguson (Adult Med) [address] [place] [address] 0 10/20/2019 14:39:03 10/27/2019 12:37:23 Kidney stone 73507354 N20.0 Herpes zoster 7047585 B0 2.9 Gastroesop hageal reflux disease 381910326 K21.9 [id number] VAIBHAV Ferguson (Adult Med) [address] [place] [address] 0 11/08/2019 12:53:27 11/10/2019 09:23:34 Kidney stone 56482208 N20.0 Low back pain 708747802 M54.5 Gastroesop hageal reflux disease 224500404 K21.9 [id number] VAIBHAV Ferguson (Adult Med) [address] [place] [address] 0 12/20/2019 08:17:32 12/20/2019 15:39:35 Gastroesophageal reflux disease 717860354 K21.9 Herpes zoster 4335544 B0 2.9 Anemia 272531389 D64.9 Juvenile spondyloarthropathy 232639639 M08.1 closest diagnosis available Kidney stone 19135604 N2 0.0 Low back pain 243629193 M54.5 Thoracic back pain 16865 8004 M54.6 Tobacco user 452492028 Z 72.0 [id number] VAIBHAV Ferguson (Adult Med) [address] [place] [address] 0 02/17/2020 09:39:21 02/21/2020 14:32:28 Anemia 124329571 D64.9 Gastroesop hageal reflux disease 072096477 K21.9 Juvenile spondyloarthropathy 145765254 M08.1 closest diagnosis available Obese 404034831 E66.9 Tobacco user 798102897 Z 72.0 Insomnia 571595474 G47.0 0 [id number] VAIBHAV Ferguson (Adult Med) [address] [place] [address] 0 06/08/2020 14:45:21 06/08/2020 15:45:09 Acute folliculitis 128808210 L73.9 left axilla Herpes zoster 8611620 B0 2.9 Juvenile spondyloarthropathy 124080222 M08.1 closest diagnosis available Low back pain 309447242 M54.5 Anemia 147307623 D64.9 Gastroesop hageal reflux disease 136715101 K21.9 Insomnia 655102437 G47.0 0 Iron deficiency 30833665 E61.1 Tobacco user 107038985 Z 72.0 [id number] VAIBHAV Ferguson (Adult Med) [address] [place] [address] 0 08/22/2020 09:52:45 08/22/2020 12:50:30 Gastroesophageal reflux disease 038558881 K21.9 Insomnia 699421797 G47.0 0 Kidney stone 50772180 N2 0.0 Left flank pain 53005007 9 R10.9 Low back pain 097643540 M54.5 Bilateral osteoarthritis of knees 3692611813 96665 M17.0 [id number] VAIBHAV Ferguson (Adult Med) [address] [place] [address]6420[address] 0 10/19/2020 08:13:05 10/19/2020 15:38:00 Juvenile spondyloarthropathy 166582959 M08.1 closest diagnosis available Herpes zoster 0892660 B0 2.9 Left flank pain 31899605 9 R10.9 Low back pain 043292213 M54.5 Anemia 935245641 D64.9 Gastroesop hageal reflux disease 166008485 K21.9 Osteopenia 931513470 M85 .80 Tobacco user 100840175 Z 72.0 [id number] VAIBHAV Ferguson (Adult Med) [address] [place] [address] 89610[address] 0 11/27/2020 09:15:14 11/27/2020 12:59:09 Acute urinary tract infection 153457890 N39.0 Gastroesop hageal reflux disease 981082949 K21.9 [id number] VAIBHAV Ferguson (Adult Med) [address] [place] [address] [phone] 04/23/2021 16:53:51 04/23/2021 17:12:23 Left flank pain 304621669 R10.9 Screening for malignant neoplasm of breast 344827757 Z12.31 Low back pain 060860938 M54.51 Juvenile spondyloarthropathy 759399556 M08.1 closest diagnosis available Gastroesop hageal reflux disease [id number] K21.9 Insomnia 376442107 G47.0 0 Iron deficiency 60128126 E61.1 Kidney stone 46208894 N2 0.0 Tobacco user [id number] Z 72.0 [id number] VAIBHAV Ferguson (Adult Med) [address] [place] [address] [phone] 09/06/2021 15:10:48 09/09/2021 09:56:36 Flank pain 931594897 R10.9 Left flank pain [id number] 9 R10.9 Low back pain [id number] M54.51 Kidney stone 29197113 N2 0.0 Juvenile spondyloarthropathy 866928340 M08.1 closest diagnosis available Insomnia 507710620 G47.0 0 Gastroesop hageal reflux disease 160406987 K21.9 Disorder o f joint of spine 394592269 M53.9 spondyloar thropathy Bilateral osteoarthritis of knees 4615925201 20203 M17.0 Anemia 996101827 D64.9 [id number] MD Sami Magana (Adult Med) [address] [place] [phone] 07/10/2022 16:28:24 07/14/2022 13:39:27 Obesity 234099423 E66.9 BMI is 33.3, she has been advised to watch her diet, exercise and keep the weight down. Acute righ t otitis media 404617077 H66.91 Went to urgent care , got amoxicilli n, feels better but not complete. will add levaquin to finish it, she agreed. Family his tory of diabetes mellitus type 2 671057816 Z83.3 Will check A!c and CMP. Adult heal th examination 587016101 Z00.00 History of rectal bleeding in the past , ended up colonoscop ic ex, turned out to be negative. Screening for osteoporosis 617303035 Z13.820 Will screening Vitamin D. she agreed. Screening for malignant neoplasm of cervix 825074160 Z12.4 She wants to check with her EDUCATION RESEARCH ANALYST. Screening mammography 354472 Z12.31 She wants to check with her EDUCATION RESEARCH ANALYST. [id number] MD Sami Beckett (Adult Med) [address] [place] [phone] 10/27/2022 14:23:37 10/30/2022 14:38:32 Screening for malignant neoplasm of breast 857053041 Z12.39 Screening for malignant neoplasm of cervix 197126381 Z12.4 Hyperlipid emia screening 220012275 Z13.220 Will return to get fasting blood work. Hot sweats 827295332 R61 Check TSH due to hot flashes and history of borderline TSH. Will return for this when gets lipid panel. Tobacco user 507937830 Z 72.0 Planning to try quit and have totally quit by daughters birthday February 12. Will get low dose chest CT. Menopause 557274311 N95. 1 experience s flushing likely secondary to menopause. Does not want to treat with medication and has been managing conservati vely. [id number] MD Sami Magana (Adult Med) [address] [place] [phone] 10/08/2022 15:27:25 10/09/2022 15:13:05 Anemia 256627858 D64.9 Will refer to GI. she already has EDUCATION RESEARCH ANALYST appointmen t, Had negative colonoscop ic ex few years ago. Will see what the EDUCATION RESEARCH ANALYST evaluation to determine the next step. She denied any heavy period or rectal bleeding nor has knowledge of sick cell disorder of her. Vitamin D below reference range 845007646 E55.9 Discussed with patient , she agreed for the vitamin D and supplement with calcium. [id number] MD Sami Magana (Adult Med) [address] [place] [phone] 01/13/2023 14:24:09 01/15/2023 14:10:50 Urinary tract infectious disease 23704114 N39.0 She agreed to try med as ordered. Smoker 87104936 F17.200 Advised her to quit smoking. She is aware of cigarettes smoking can cause permanent emphysema, cancer of lung, throat or mouth and other diseases. [id number] MD Sami Magana (Adult Med) [address] [place] [phone] 04/29/2023 14:43:25 04/30/2023 16:01:34 Abscess of axilla 57391513 L02.419 She agreed to try ABT with optional surgical referral for I n D. Screening for malignant neoplasm of colon 591460906 Z12.11 Will refer. Obesity 999103042 E66.9 BMI is 33.3, she has been advised to watch her diet, exercise and keep the weight down. [id number] Sami (Adult Med) [address] [place] [phone] 09/23/2024 09:50:45 09/23/2024 10:31:58 Edema of right lower limb 552947266 R60.0 Bedridden after surgery for several months. Acute swelling left lower extremity. Will get stat venous doppler study. If unable to get it approved through insurance today will send her to ER. Discussed this with patient. Health Concerns Section Related Observation LastModified by Organization Detai ls LastModified Time None Recorded Concern Status LastModified by Organization Details LastModified Time None Recorded Advance Directives Directive N: Payers Encounter Date Sequence Insurance Name Policy Number Policy Vega Covered Member ID Vega Member ID Guarantor Name 10/08/2022 1 [place] [id number] Mango Gar [id number] Yaima Walker 10/27/2022 1 [place] [id number] Mango Gar [id number] Yaima Gar 01/13/2023 1 [place] [id number] Mango Gar [id number] Yaima Walker 04/29/2023 1 [place] [id number] Mango Gar [id number] Yaima Walker 09/23/2024 1 [place] [id number] Mango Gar [id number] Yaima Gar Notes Date Note Type Note Provider Name and Address Organization Details Recorded Time 10/08/2022 text/html Office visit. NKDA. wants to know her lab report . went thru and september of 2022 urine tests. copies of reports provided. Few years ago had negative colonoscopic ex she said, Anemia improved since 2017. She will her EDUCATION RESEARCH ANALYST this month . A1c is normal, also as blood sugar, so she is not sugar diabetic. Normal electrolytes and kidney and liver functions , some degrees of low albumin. Xiomara Ryan MD Attn: Accounting, [address] [facility], [place], [address], [facility] 10/08/2022 16:34:22 10/27/2022 text/html here for women's health exam, has been at least four years since PAP, no vaginal discharge or irritation, last period was four or five years ago, due for mammogram, gets hot flashes and has had them for many years, had them when was still having periods, gets them mostly at night, no family history of breast or uterine or ovarian or cervical cancers, smokes four or five cigarettes a day for many years, wants to quit, has quit in the past, takes Humira for RA, had colonoscopy a couple years ago, some sleep problems, no depression, Christie Valdivia MD Attn: Accounting, [address] [facility], [place], [address], [facility] 10/27/2022 17:36:36 01/13/2023 text/html Office visit, NKDA. possible uti, wants abs. Can not give urine now. Xiomara Ryan MD Attn: Accounting, [address] [facility], [place], [address], [facility] 01/13/2023 15:16:27 04/29/2023 text/html Office visit, NKDA. , not sugar diabetic, c/c 1, Left arm pit boil, painful. 2. Wants colonoscopic screening. ROS as noted in HPI. Not alcoholic. Xiomara Ryan MD Attn: Accounting, [address] [facility], [place], [address], [facility] 04/29/2023 16:21:53 09/23/2024 text/html establish care, make appointment awhile [...] pain Christie Valdivia MD Attn: Accounting,[address] [place], [address], [place] [facility] 09/23/2024 10:32:56 OBGyn Episode No OBEpisode recorded.
== END 2024-09-23 14:23 | disposition home or self-care (01) ==
PROVIDERS: PCP Emergency Medicine; Visit Provider Emergency Medicine
DX: I82.412 Acute embolism and thrombosis of left femoral vein (principal)
CPT/HCPCS: 93971